=== PATIENT | male | born 1950 | race Caucasian/White ===

== ENCOUNTER → 2023-11-04 | Outpatient (CLI) | payer MEDICARE, OTHER, MEDICAID, SELFPAY | END | disposition home or self-care (01) | PROVIDERS: PCP Family Medicine; Referring Provider Family Medicine; Visit Provider Student in an Organized Health Care Education/Training Program | DX: L97.822 Non-pressure chronic ulcer of other part of left lower leg with fat layer exposed (principal); L97.512 Non-pressure chronic ulcer of other part of right foot with fat layer exposed; L97.522 Non-pressure chronic ulcer of other part of left foot with fat layer exposed; I73.9 Peripheral vascular disease, unspecified; I25.10 Atherosclerotic heart disease of native coronary artery without angina pectoris; Z86.73 Personal history of transient ischemic attack (TIA), and cerebral infarction without residual deficits; I10 Essential (primary) hypertension; C61 Malignant neoplasm of prostate | CPT/HCPCS: 11042; 87070; 87075; 87077; 87186; 87205; A9270 ==

== ENCOUNTER → 2024-01-12 | Outpatient (CLI) | payer MEDICARE, MEDICAID, SELFPAY | END | disposition home or self-care (01) | LOC: SWHD 13:59 | PROVIDERS: PCP Family Medicine; Referring Provider Family Medicine; Visit Provider Student in an Organized Health Care Education/Training Program | DX: L97.822 Non-pressure chronic ulcer of other part of left lower leg with fat layer exposed (principal); L97.512 Non-pressure chronic ulcer of other part of right foot with fat layer exposed; L97.522 Non-pressure chronic ulcer of other part of left foot with fat layer exposed; I73.9 Peripheral vascular disease, unspecified; I25.10 Atherosclerotic heart disease of native coronary artery without angina pectoris; Z86.73 Personal history of transient ischemic attack (TIA), and cerebral infarction without residual deficits; I10 Essential (primary) hypertension; C61 Malignant neoplasm of prostate | CPT/HCPCS: 11042; 11045 ×5; A9270 ==

== ENCOUNTER 2024-01-13 22:15 | Emergency (ER) | payer MEDICARE, MEDICAID, SELFPAY ==
[2024-01-13 22:23] VITALS: BMI 25.8
[2024-01-13 22:24] VITALS: BP 133/67; PULSE 69; RESP 19; TEMP 36.8; O2SAT 95
[2024-01-13 23:01] VITALS: PULSE 85; RESP 18; O2SAT 98
[2024-01-13 23:05] VITALS: BP 127/77; PULSE 81; RESP 16; O2SAT 94
--- NOTE | 2024-01-14 00:04 | XR_ITS ---
Examination: CT cervical spine without contrast 2-D sagittal reconstructions 2-D coronal reconstructions 3-D reconstructions. Exam date and time:January 14, 2024 1259 hrs. Indications: Multiple falls today with injury to the neck, neck pain CTDI:vol (mGy) 12.86 DLP: (mGycm) 310 Technique: Multiple 2 mm axial sections of the cervical spine have been obtained. The coronal and sagittal reconstructions have been obtained. 3-D reconstructions have been obtained. Low dose protocols were performed. One or more of the following dose reduction techniques were used; automated exposure control, adjustment of the mA and/or KV according to patient size, use of iterative reconstruction technique. Findings: Axial sections demonstrate intact base of the skull. C1 exhibit satisfactory relationship to the odontoid. No acute cervical vertebral body fracture seen. Alignment posterior spinous processes satisfactory. Impression: No acute cervical fracture.
--- NOTE | 2024-01-14 00:04 | XR_ITS ---
Examination: CT brain head without contrast. 2-D sagittal coronal reconstructions Date and time of exam:January 14, 2024 at 1223 hrs. Indications: Multiple falls today with injury to the head, head pain CTDI: vol (mGy):51.1 DLP: (mGycm):1109 Technique: Multiple CT axial sections of the brain have been obtained, 5 mm slice thickness. Contrast has not been administered. 2-D sagittal, coronal reconstructions have been obtained Low dose protocols were performed. One or more of the following dose reduction techniques were used; automated exposure control, adjustment of the mA and/or KV according to patient size, use of iterative reconstruction technique. Findings: No significant ventricular enlargement. Encephalomalacia right temporal lobe Encephalomalacia right occipital lobe as well as right frontal lobe Intra-axial or extra-axial hemorrhage density is not seen. No mass effect or midline shift Basal cisterns are not remarkable. Fourth ventricle is midline. Cranial vault intact. Impression: Negative for acute hemorrhage, mass effect or midline shift Extensive chronic changes as above
[2024-01-14] MEDS: HYDROcodone/APAP 5/325 TABLET 1 TAB PO (00:48)
--- NOTE | 2024-01-14 00:52 | EDNOTE_ITS ---
ED Fall Injury RME/HPI General Chief Complaint: Fall Stated Complaint: FALL Time Seen by Provider: 01/14/24 00:04 Arrival date/time: 01/13/24 22:15 RME / HPI RME / HPI Narrative: Dr. Quinones's Main ED Evaluation: 73yo male with pmhx CVA, HTN, DM, BPH BIBA from [facility] presents to the ED for a chief complaint of a fall. Per EMS, the patient had 3 falls yesterday. With the latest fall, patient states he was bending over when he lost his balance and fell forward, hitting his head. He endorses having a headache and chronic BLE pain, stating his BLE pain is significantly worse and rates it a 6-7 out of 10 in severity and is repeatedly asking for pain medication. He denies any loss of consciousness. Denies any other associated symptoms. No known allergies. Related Data Home Medications ?Medication ?Instructions ?Recorded ?Confirmed tamsulosin 0.4 mg capsule 0.4 mg PO QHS 08/02/21 12/13/23 apixaban 5 mg tablet (Eliquis) 5 mg PO 2XD 11/10/23 12/13/23 metoprolol succinate 25 mg 25 mg PO QDAY 11/10/23 12/13/23 tablet,extended release 24 hr hydrocodone 10 mg-acetaminophen 1 tab PO Q4H PRN Pain 12/13/23 12/13/23 325 mg tablet lidocaine HCl 4 % topical cream 1 applic topical QDAY 12/13/23 12/13/23 (Lidocaine Plus) loperamide 2 mg tablet 2 mg PO Q8H PRN Pain (Scale Score 12/13/23 12/13/23 7-10) magnesium hydroxide 400 mg/5 mL 30 ml PO Q72H PRN Constipation 12/13/23 12/13/23 oral suspension (Milk of Magnesia) morphine 15 mg tablet,extended 15 mg PO BID 12/13/23 12/13/23 release Previous Rx's ?Medication ?Instructions ?Recorded acetaminophen 325 mg tablet 650 mg (2 x 325 mg) PO Q6H PRN 11/16/23 Fever >100.3 #10 tabs docusate sodium 100 mg capsule 100 mg PO BID #60 caps 11/16/23 furosemide 40 mg tablet 40 mg PO QDAY 30 days #30 tabs 09/23/24 ceftriaxone 2 gram solution for 2 g continuous IV infusion QDAY 12/14/23 injection Osteomyelitis #40 ea doxycycline hyclate 100 mg tablet 100 mg PO BID Osteomyelitis #80 12/14/23 tabs Allergies Allergy/AdvReac Type Severity Reaction Status Date / Time No Known Allergies Allergy Unverified 11/03/23 14:39 Review of Systems Review of Systems Systems Reviewed: All systems reviewed, normal except as documented Narrative Review of Systems: Gen: No fever, no chills, no weight loss EYES: No discharge, no visual changes, no pain HEENT: No ear pain, no congestion, no sore throat PULM: No shortness of breath, no cough, no congestion CV: No chest pain, no dyspnea on exertion, no palpitations GI: No nausea, no vomiting, no diarrhea, no pain, no constipation : No frequency, no urgency, no dysuria Musc/skel: + BLE pain, no back pain Skin: No rash. Warm and dry. Psyc: No hallucinations, no depression Heme/Lymph: No easy bleeding or bruising tendencies Neuro: No weakness, + headache, + head strike Past Medical History Past Medical History NEUROLOGIC: Positive Neurological Disorders and Cerebrovascular Accident; Negative Seizures CARDIAC: Positive Cardiac Disorders, Myocardial Infarction, Peripheral Vascular Disease, Hypercholesterolemia, Congestive Heart Failure, Deep Vein Thrombosis and Hypertension RESPIRATORY: Negative Chronic Obstructive Pulmonary Disease (COPD) or Asthma GENITOURINARY: Positive Prostate Cancer and Benign Prostatic Hyperplasia; Negative Renal Disease MUSCULOSKELETAL: Negative Musculoskeletal Disorders ENDOCRINE: Negative Endocrine Disorders, Diabetes Mellitus Type 1 or Diabetes Mellitus Type 2 HEMATOLOGIC: Negative Sickle Cell Disease OTHER HISTORY: Positive Cancer and Prostate Cancer; Negative Hospitalization, Autoimmune Disease, Down Syndrome, Developmental Delay, Falls, Blood Transfusions, Blood Transfusion Reaction or Anesthesia Reactions Surgical History SURGICAL: Positive Amputation Social History SMOKING STATUS: Former smoker SECOND HAND EXPOSURE: No SUBSTANCE USE: does not use 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 APPEARANCE: Patient is alert awake oriented x3 under no distress; does not look ill/ toxic. Patient is extremely anxious and wants painkillers. VITALS: All vitals were reviewed and the pulse ox is 94% on room air, which is normal according to my interpretation. HEENT: Normocephalic, atraumatic and nontender. Pupils are equal and reactive to light and accommodation. Oral mucosa are moist. NECK: Supple, nontender, no meningismus, no JVD. CHEST: Nontender on palpation, no deformity and no crepitus. CARDIOVASCULAR: Heart regular rhythm no murmur or gallop rub or extra beats; not tachycardic. LUNGS: Clear to auscultation bilaterally with symmetrical chest rise. No laboring tachypnea or wheezing. No intercostal subcostal retraction. No rales and no rhonchi. ABDOMEN: Soft, flat, nontender at all, no guarding or rebound tenderness. There are no abnormal masses palpated. No pulsatile masses or bruits. Active and normal bowel sounds. GENITALIA: Not examined. RECTAL EXAM: Not done. EXTREMITIES: Nontender. No edema. No cyanosis. Chronic ulcerations with bandages to both legs. Patient is able to move all 4 extremities well. SKIN: Warm and dry, no rashes noted. MUSCULOSKELETAL: No lumbar or midline bony tenderness. There is no CVA tenderness. No paraspinal muscle spasm or tenderness. NEURO: Cranial nerves II through XII grossly intact. There is no focalization. GCS is 15. PSYCHIATRIC: Patient is in normal mood and affect, cooperative. LYMPHATICS: No major lymphadenopathy noted. Course Quality Measures none Orders Category Date Time Status CT cervical spine wo con Stat Exams 01/14/24 00:[address] head/brain wo con Stat Exams 01/14/24 00:04 Taken HYDROcodone*/APAP 5/325 [[place] 5/325] Med 01/14/24 00:45 Discontinued 1 tab PO X1 ONE Vital Signs Vital signs: Vital Signs Temperature 98.3 F 01/13/24 22:24 Pulse Rate 69 01/13/24 22:24 Respiratory Rate 19 01/13/24 22:24 Blood Pressure 133/67 H 01/13/24 22:24 Pulse Oximetry (%) 95 01/13/24 22:24 Oxygen Delivery Method Room Air 01/13/24 22:24 Fall MDM Narrative MDM Narrative:: Scribe Attestation: 01/14/24 Michelle Bradley am scribing for and in the presence of Dr. Quinones. Patient was sent over by ambulance from the long term due to a trip and fall this morning with injury to the head. Patient states that he fell forward after tripping over himself this morning at 8 AM but no loss of consciousness or nausea vomiting. Patient complains of forehead pain but no true headache. He denies any nausea vomiting. He denies any neck pain and no numbness or tingling anywhere. He denies any localized weakness. He denies chest pain or abdominal pain or back pain. Patient has chronic ulcerations in his lower extremities. By looking at his old records, patient was last here on 07/04/2023 when he tested positive for methamphetamines and marijuana. Today, he acts like he is dependent on narcotics: He is very anxious, asking for [place] due to his headache and his legs pain. He has bandages in his lower legs bilaterally due to wounds that are being treated at the long term. I only ordered a CAT scan of the brain and C-spine and both of them came back negative. Patient is neurologically intact and he will be discharged back to the nursing. Provider Notation: Although this document has been carefully reviewed, there may still be some phonetic and other typographical errors. These errors are purely grammatical due to imperfections in the software program and should not be construed in any way to compromise the substance of the patient's medical care during this visit. 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. Record#: [id number] Birthdate: 1950 Age/Sex: 73 / M Location: [facility] Attending Dr: Ordering Physician: Date of Service: Procedure(s): Accession Number(s): cc: ~ CT scan of the head without intravenous contrast (axial sections with sagittal and coronal reformats) January 14, 2024 0023 hours Clinical [facility] with the prior study dated July 04, 2023 Findings: There is no evidence of intracranial hemorrhage, mass effect or midline shift.There are old infarcts in the right frontotemporal and occipital lobes. There are mild periventricular white matter hypodensities, likely representing chronic small vessel ischemia. There is mild volume loss. The calvarium is intact.There is a small retention cyst or polyp in the right maxillary sinus. The mastoid air cells and the visualized paranasal sinuses are clear. Impression: No evidence of intracranial hemorrhage, midline shift or calvarial fracture. Periventricular chronic small vessel ischemia, old infarcts and volume loss. Report Electronically Signed By: Oskar Lassiter 01/14/2024 1:57:46 AM [EST] -------- [facility] Preliminary Report Draft Patient: JENNA VO [facility]. Record#: [id number] Birthdate: 1950 Age/Sex: 73 / M Location: [facility] Attending Dr: Ordering Physician: Date of Service: Procedure(s): Accession Number(s): cc: ~ CT scan of the cervical spine without intravenous contrast (axial sections with sagittal and coronal reformats) January 14, 2024 0025 hours Clinical History: fall No prior study is available for comparison. Findings: The bones are osteopenic. There is no fracture or subluxation. There is reversal of the cervical lordosis, which may be due to muscle spasm or patient position. There are multilevel moderate degenerative changes in the form of marginal osteophytes, decreased disc height, uncinate and facet arthrosis, most prominent at C4-C5, C5-C6 and C6-C7 levels causing mild spinal canal and moderate bilateral neural foraminal narrowing.The prevertebral soft tissues are unremarkable. Impression: No evidence of fracture or subluxation. Moderate degenerative changes. Report Electronically Signed By: Oskar Lassiter 01/14/2024 1:59:28 AM [EST] Medications / Prescriptions Medications or Prescriptions considered but not ordered:: none Medication administrations:: Medication Administration History Discontinued Medications Hydrocodone Bitart/Acetaminophen (Hydrocodone/Apap 5/325 Tablet) 1 tab PO X1 ONE Stop: 01/14/24 00:46 Last Admin: 01/14/24 00:48 Dose: 1 tab Documented By: DB see above Consultations Consultation(s) initiated? (list below): No Diagnosis Fall Differential Diagnosis: other (ICH, cervical fracture, narcotic dependence) Most likely diagnosis given after review of the tests above:: see below Admission Indicated Admission indicated?: not indicated Admission Request Was there a request for admission?: No Disposition Plan Disposition Plan: Discharge Discharge Attestation Discharge Attestation: The patient and all family members were given an opportunity to ask questions and understood the discharge instructions. Discharge instructions specifically effects, indications for sooner follow up or return to the emergency department, and the expected course of current diagnosis. Patient condition: Stable Discharge Plan Plan Patient Disposition: Xfer Skilled Nsg Fac (SNF) Prescriptions/Referrals Prescriptions/Med Rec: No Action tamsulosin 0.4 mg capsule 0.4 mg PO QHS metoprolol succinate 25 mg tablet extended release 24 hr 25 mg PO QDAY Patient Comments: TAKE ONE TABLET BY MOUTH EVERY DAY FOR BLOOD PRESSURE Eliquis 5 mg tablet 5 mg PO 2XD Patient Comments: TAKE ONE TABLET BY MOUTH TWICE DAILY FOR THE HEART acetaminophen 325 mg Tablet 650 mg PO Q6H PRN (Reason: Fever >100.3) Qty: 10 0RF furosemide 40 mg tablet 40 mg PO QDAY 30 Days Qty: 30 3RF docusate sodium 100 mg Capsule 100 mg PO BID Qty: 60 0RF loperamide 2 mg Tablet 2 mg PO Q8H PRN (Reason: Pain (Scale Score 7-10)) hydrocodone-acetaminophen 10-325 mg Tablet 1 tab PO Q4H PRN (Reason: Pain) morphine 15 mg Tablet Extended Release 15 mg PO BID lidocaine HCl [Lidocaine Plus] 4 % Cream 1 applic TOPICAL QDAY Rx Instructions: Apply to L foot surgical site topically QD for pain management for 21 days. magnesium hydroxide [Milk of Magnesia] 400 mg/5 mL Suspension 30 ml PO Q72H PRN (Reason: Constipation) ceftriaxone 2 gram recon soln 2 g continuous IV infusion QDAY Qty: 40 0RF Rx Instructions: Please continue with this medicine until 01/22/2024 for total duration of 6 weeks. doxycycline hyclate 100 mg tablet 100 mg PO BID Qty: 80 0RF Rx Instructions: Please continue this medicine until 01/22/2024 for osteomyelitis. Referrals: Nyasia Dorado MD [Primary Care Provider] - 01/15/24 10:00 am Problem List Clinical Impression: Fall from slip, trip, or stumble, CHI (closed head injury), History of methamphetamine abuse, History of cannabis abuse Patient/Caregiver Discharge Instructions Print Language: [place] Stand Alone Forms: [employer]zy Award Info., Patient Portal Info Letter
[2024-01-14 01:41] VITALS: BP 128/75; PULSE 85; RESP 16; O2SAT 95
[2024-01-14 01:42] VITALS: BP 128/75; PULSE 80; RESP 16; TEMP 37; O2SAT 95
--- NOTE | 2024-01-14 01:57 | PRELIM_ITS ---
CT scan of the head without intravenous contrast (axial sections with sagittal and coronal reformats) January 14, 2024 0023 hoursClinical History: Fall on [facility]Compared with the prior study dated 2023Findings:There is no evidence of intracranial hemorrhage, mass effect or midline shift.Ther e are old infarcts in the right frontotemporal and occipital lobes. There are mild periventricular w marbella matter hypodensities, likely representing chronic small vessel ischemia. There is mild volume lo ss. The calvarium is intact.There is a small retention cyst or polyp in the right maxillary sinus. Th e mastoid air cells and the visualized paranasal sinuses are clear. Impression:No evidence of intracr anial hemorrhage, midline shift or calvarial fracture. Periventricular chronic small vessel ischemia, old infarcts and volume loss. Report Electronically Signed By: Oskar Lassiter 01/14/2024 1:57:46 AM [ EST]
--- NOTE | 2024-01-14 02:00 | PRELIM_ITS ---
CT scan of the cervical spine without intravenous contrast (axial sections with sagittal and coronal reformats) January 14, 2024 0025 hours Clinical History: fall No prior study is available for compar kristen. Findings:The bones are osteopenic. There is no fracture or subluxation. There is reversal of th e cervical lordosis, which may be due to muscle spasm or patient position. There are multilevel moder ate degenerative changes in the form of marginal osteophytes, decreased disc height, uncinate and fa cet arthrosis, most prominent at C4-C5, C5-C6 and C6-C7 levels causing mild spinal canal and moderate bilateral neural foraminal narrowing.The prevertebral soft tissues are unremarkable.Impression:No ev idence of fracture or subluxation.Moderate degenerative changes. Report Electronically Signed By: Sa faizan Lassiter 01/14/2024 1:59:28 AM [EST]
[2024-01-14 02:02] VITALS: BP 127/91; PULSE 88; RESP 18; O2SAT 93
[2024-01-14 03:00] VITALS: BP 122/92; PULSE 91; RESP 20; O2SAT 93
== END 2024-01-14 03:24 | disposition skilled nursing facility (03) ==
PROVIDERS: Emergency Provider Emergency Medicine; PCP Hospitalist
DX: S09.90XA Unspecified injury of head, initial encounter (principal); S19.9XXA Unspecified injury of neck, initial encounter; M50.31 Other cervical disc degeneration, high cervical region; I67.82 Cerebral ischemia; Z87.891 Personal history of nicotine dependence; W01.0XXA Fall on same level from slipping, tripping and stumbling without subsequent striking against object, initial encounter
CPT/HCPCS: 70450; 72125; 99284; A9270

== ENCOUNTER → 2024-01-19 | Outpatient (CLI) | payer MEDICARE, MEDICAID, SELFPAY | END | disposition home or self-care (01) | LOC: SWHD 08:41 | PROVIDERS: PCP Family Medicine; Referring Provider Family Medicine; Visit Provider Student in an Organized Health Care Education/Training Program | DX: L97.822 Non-pressure chronic ulcer of other part of left lower leg with fat layer exposed (principal); L97.512 Non-pressure chronic ulcer of other part of right foot with fat layer exposed; L97.522 Non-pressure chronic ulcer of other part of left foot with fat layer exposed; I73.9 Peripheral vascular disease, unspecified; I25.10 Atherosclerotic heart disease of native coronary artery without angina pectoris; Z86.73 Personal history of transient ischemic attack (TIA), and cerebral infarction without residual deficits; I10 Essential (primary) hypertension; C61 Malignant neoplasm of prostate | CPT/HCPCS: 97597; 11042; 11045 ×2; 97598 ×4; A9270 ==

== ENCOUNTER → 2024-01-26 | Outpatient (CLI) | payer MEDICARE, MEDICAID, SELFPAY | END | disposition home or self-care (01) | LOC: SWHD 13:52 | PROVIDERS: PCP Family Medicine; Referring Provider Family Medicine; Visit Provider Student in an Organized Health Care Education/Training Program | DX: L97.822 Non-pressure chronic ulcer of other part of left lower leg with fat layer exposed (principal); L97.512 Non-pressure chronic ulcer of other part of right foot with fat layer exposed; L97.522 Non-pressure chronic ulcer of other part of left foot with fat layer exposed; I73.9 Peripheral vascular disease, unspecified; I25.10 Atherosclerotic heart disease of native coronary artery without angina pectoris; Z86.73 Personal history of transient ischemic attack (TIA), and cerebral infarction without residual deficits; I10 Essential (primary) hypertension; C61 Malignant neoplasm of prostate | CPT/HCPCS: 11042; 11045; 11044; 11047; A9270 ==

== ENCOUNTER 2024-01-27 09:43 | Emergency (ER) | payer MEDICARE, MEDICAID, SELFPAY ==
[2024-01-27 09:44] VITALS: BP 151/74; PULSE 68; RESP 16; TEMP 37.2; O2SAT 96
[2024-01-27 09:45] VITALS: BMI 26.8
[2024-01-27 09:54] VITALS: PULSE 82; RESP 18; O2SAT 97; BMI 27.3
[2024-01-27 11:55] VITALS: BP 142/66; PULSE 64; RESP 20; TEMP 36.3; O2SAT 96
--- NOTE | 2024-01-27 11:59 | XR_ITS ---
Examination: CT cervical spine without contrast 2-D sagittal reconstructions 2-D coronal reconstructions 3-D reconstructions. Exam date and time:January 27, 2024 1255 hours Comparison January 14, 2024 INDICATIONS: Patient fell today with injury to the neck, neck pain CTDI:vol (mGy) 8.07 DLP: (mGycm) 196 Technique: Multiple 2 mm axial sections of the cervical spine have been obtained. The coronal and sagittal reconstructions have been obtained. 3-D reconstructions have been obtained. Low dose protocols were performed. One or more of the following dose reduction techniques were used; automated exposure control, adjustment of the mA and/or KV according to patient size, use of iterative reconstruction technique. Findings: Axial sections demonstrate intact base of the skull. C1 exhibit satisfactory relationship to the odontoid. No acute cervical vertebral body fracture seen. Alignment posterior spinous processes satisfactory. Impression: No acute cervical fracture.
--- NOTE | 2024-01-27 11:59 | XR_ITS ---
Examination: CT brain head without contrast. 2-D sagittal coronal reconstructions Date and time of exam:January 27, 2024 1255 hours Comparison January 14, 2024 INDICATIONS: Patient fell today with injury to the head, head pain CTDI: vol (mGy):50.7 DLP: (mGycm):1087 Technique: Multiple CT axial sections of the brain have been obtained, 5 mm slice thickness. Contrast has not been administered. 2-D sagittal, coronal reconstructions have been obtained Low dose protocols were performed. One or more of the following dose reduction techniques were used; automated exposure control, adjustment of the mA and/or KV according to patient size, use of iterative reconstruction technique. Findings: No significant ventricular enlargement. Left frontal scalp swelling Again noted encephalomalacia right temporal lobe right occipital lobe Intra-axial or extra-axial hemorrhage density is not seen. No mass effect or midline shift Basal cisterns are not remarkable. Fourth ventricle is midline. Cranial vault intact. Impression: Negative for acute hemorrhage, mass effect or midline shift
--- NOTE | 2024-01-27 12:00 | EDNOTE_ITS ---
ED General RME/HPI General Chief complaint: Head Injury Stated complaint: HEAD INJURY Time Seen by Provider: 01/27/24 11:59 Arrival date/time: 01/27/24 09:43 CC: Ground-level fall headache. HPI, standing at the breakfast table states he fell asleep on his feet. And then tumbled over patient states he had recurrent falls for unknown reason. The patient immediate complained about his chronic leg pain is wanting pain medicines. Patient is awake alert oriented rapid speaking. Related Data Home Medications ?Medication ?Instructions ?Recorded ?Confirmed tamsulosin 0.4 mg capsule 0.4 mg PO QHS 08/02/21 12/13/23 apixaban 5 mg tablet (Eliquis) 5 mg PO 2XD 11/10/23 12/13/23 metoprolol succinate 25 mg 25 mg PO QDAY 11/10/23 12/13/23 tablet,extended release 24 hr hydrocodone 10 mg-acetaminophen 1 tab PO Q4H PRN Pain 12/13/23 12/13/23 325 mg tablet lidocaine HCl 4 % topical cream 1 applic topical QDAY 12/13/23 12/13/23 (Lidocaine Plus) loperamide 2 mg tablet 2 mg PO Q8H PRN Pain (Scale Score 12/13/23 12/13/23 7-10) magnesium hydroxide 400 mg/5 mL 30 ml PO Q72H PRN Constipation 12/13/23 12/13/23 oral suspension (Milk of Magnesia) morphine 15 mg tablet,extended 15 mg PO BID 12/13/23 12/13/23 release Previous Rx's ?Medication ?Instructions ?Recorded acetaminophen 325 mg tablet 650 mg (2 x 325 mg) PO Q6H PRN 11/16/23 Fever >100.3 #10 tabs docusate sodium 100 mg capsule 100 mg PO BID #60 caps 11/16/23 furosemide 40 mg tablet 40 mg PO QDAY 30 days #30 tabs 11/16/23 ceftriaxone 2 gram solution for 2 g continuous IV infusion QDAY 12/14/23 injection Osteomyelitis #40 ea doxycycline hyclate 100 mg tablet 100 mg PO BID Osteomyelitis #80 12/14/23 tabs Allergies Allergy/AdvReac Type Severity Reaction Status Date / Time No Known Allergies Allergy Unverified 11/03/23 14:39 Review of Systems Review of Systems Narrative Review of Systems: GEN: No fever, no chills, no weight loss EYES: No discharge, no visual changes, no pain HEENT: No ear pain, no congestion, no sore throat PULM: No shortness of breath, no cough, no congestion CV: No chest pain, no dyspnea on exertion, no palpitations GI: No nausea, no vomiting, no diarrhea, no pain, no constipation : No frequency, no urgency, no dysuria MUSC/SKEL: No joint pain, no back pain SKIN: No rash PSYCH: No hallucinations, no depression HEME/LYMPH: No easy bleeding or bruising tendencies NEURO: No weakness, + headache Past Medical History Past Medical History NEUROLOGIC: Positive Neurological Disorders and Cerebrovascular Accident (left side deficit); Negative Seizures CARDIAC: Positive Cardiac Disorders, Myocardial Infarction, Peripheral Vascular Disease, Hypercholesterolemia, Congestive Heart Failure, Deep Vein Thrombosis and Hypertension RESPIRATORY: Negative Chronic Obstructive Pulmonary Disease (COPD) or Asthma GENITOURINARY: Positive Prostate Cancer and Benign Prostatic Hyperplasia; Negative Renal Disease MUSCULOSKELETAL: Negative Musculoskeletal Disorders ENDOCRINE: Negative Endocrine Disorders, Diabetes Mellitus Type 1 or Diabetes Mellitus Type 2 HEMATOLOGIC: Negative Sickle Cell Disease OTHER HISTORY: Positive Cancer and Prostate Cancer; Negative Hospitalization, Autoimmune Disease, Down Syndrome, Developmental Delay, Falls, Blood Transfusions, Blood Transfusion Reaction or Anesthesia Reactions Surgical History SURGICAL: Positive Amputation (left great toe) Social History SMOKING STATUS: Never smoker SECOND HAND EXPOSURE: No SUBSTANCE USE: does not use 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 ED Exam Narrative Physical exam: [General: Anxious, not in any acute distress Head normocephalic HEENT: Within acceptable limits Neck is supple nontender Chest equal chest rise nontender to palpation Respiratory: Clear to auscultation no wheezes crackles or rubs CV: Rate rhythm is regular no murmurs rubs or clicks Abdomen is distended secondary to body habitus soft nontender no masses positive bowel sounds all 4 quadrants Back: No CVA tenderness no spinous process tenderness from cervical spine thoracic and lumbar spine Skin: Intact no petechiae rash induration ulceration or crepitus Extremities: Moving all extremity against resistance cap refill less than 2 seconds neurosensory intact, nonpitting edema both lower extremities Neuro: Awake alert oriented x3 Glascow coma 15 no focal deficits] Course Quality Measures none Orders Category Date Time Status CT cervical spine wo con Stat Exams 01/27/24 11:[address] head/brain wo con Stat Exams 01/27/24 11:59 Completed CBC Stat Lab 01/27/24 12:07 Completed CMP [Comprehensive Metabolic Panel] Stat Lab 01/27/24 12:07 Completed Drug Screen,Urine Stat Lab 01/27/24 12:09 Ordered Urinalysis Stat Lab 01/27/24 12:09 Ordered HYDROcodone/APAP 10/325 [[place] 10/325] Med 01/27/24 12:10 Discontinued 1 tab PO X1 ONE Vital Signs Vital signs: Vital Signs Temperature 98.9 F 01/27/24 09:44 Pulse Rate 68 01/27/24 09:44 Respiratory Rate 16 01/27/24 09:44 Blood Pressure 151/74 H 01/27/24 09:44 Pulse Oximetry (%) 96 01/27/24 09:44 Oxygen Delivery Method Room Air 01/27/24 09:44 [facility] Patient data External records reviewed:: [facility] previous records and EMS form Clinical information provided by:: patient and EMS Social determinants that could affect healthcare access:: none Patient has the following chronic illnesses:: Methamphetamine abuse CVA How is presenting disease/condition affected by chronic disease/condition?: e xacerbated by Evaluation data The following diagnostics were reviewed and interpreted by me:: lab results and radiology exam(s) Lab and/or radiology exams considered but not ordered:: CT head and C-spine as interpreted by me read by radiology as negative for any acute finding The CMP shows the patient has a stable anemia, no leukocytosis or thrombocytopenia CMP shows no acute electrolyte imbalances renal impairment transaminitis or T. bili elevation. Interpretation Summary: Fall I am not sure what the ultimate causes the patient takes morphine for chronic pain, and this in combination with the stable anemia may be contributing to the patient's falls. Medications Medications considered but not ordered:: None Medication administrations:: Medication Administration History Discontinued Medications Hydrocodone Bitart/Acetaminophen (Hydrocodone/Apap 10/325 Tab) 1 tab PO X1 ONE Stop: 01/27/24 12:11 Last Admin: 01/27/24 12:24 Dose: 1 tab Documented By: MARY None Consultations Consultation(s) initiated? (list below): No Diagnosis Differential Diagnosis ED Complaint MDM: Ground-level fall forehead abrasion closed head injury Most likely diagnosis given after review of the tests above:: Ground-level fall forehead abrasion anemia Admission Indicated Admission indicated?: not indicated Explain why admission is indicated or not indicated:: Stable for discharge Admission Request Was there a request for admission?: No Disposition Plan Disposition Plan: Discharge Discharge Attestation Discharge Attestation: The patient and all family members were given an opportunity to ask questions and understood the discharge instructions. Discharge instructions specifically effects, indications for sooner follow up or return to the emergency department, and the expected course of current diagnosis. Patient condition: Stable Medical Decision Making Differential Diagnosis Differential Diagnosis: Ground-level fall forehead abrasion closed head injury Lab Data 01/27/24 12:07 01/27/24 12:07 Labs: Lab Results 01/27/24 Range/Units 12:07 WBC 9.0 (3.8-10.6) Thou/mm3 RBC 3.43 L (4.50-5.90) Miln/mm3 Hgb 7.9 L (13.5-16.0) g/dL Hct 25.8 L (41.0-53.0) % MCV 75 L (80-100) fL MCH 23.0 L (25.0-35.0) pg MCHC 30.6 L (31.0-37.0) g/dl RDW Std Deviation 50.9 H (35.1-43.9) fL Plt Count 356 (140-440) Thou/mm3 Neut % (Auto) 78 (37-80) % Lymph % (Auto) 11 (10-50) % [place] % (Auto) 9 (0-12) % Eos % (Auto) 2 (0-10) % Baso % (Auto) 0 (0-2.5) % Neut # (Auto) 7.0 (1.8-7.7) Thou/mm3 Lymph # (Auto) 1.0 (1.0-4.8) Thou/mm3 [place] # (Auto) 0.9 H (0.0-0.8) Thou/mm3 Eos # (Auto) 0.2 (0.0-0.5) Thou/mm3 Baso # (Auto) 0.0 (0.0-0.2) Thou/mm3 Immature Gran # (Auto) 0.02 H (0.00-0.00) Thou/mm3 Absolute Nucleated RBC 0.00 (0.00-0.00) Thou/mm3 Immature Gran % 0 (0-0) % Nucleated RBC % 0 (0) /100 WBC Sodium 141 (136-145) mMol/L Potassium 3.7 (3.4-5.1) mMol/L Chloride 107 (98-107) mMol/L Carbon Dioxide 27.1 (20.0-31.0) mMol/L Anion Gap 7 (7-16) BUN 18 (9-23) mg/dL Creatinine 0.8 (0.6-1.3) mg/dL Estim Creat Clear Calc 79.6 (>60) mL/min eGFR > 60 (60 - ) See Note BUN/Creatinine Ratio 23 H (12-20) Ratio Glucose 97 (74-106) mg/dL Calculated Osmolality 283 (275-295) Calcium 9.1 (8.3-10.6) mg/dL Corrected Calcium 9.5 (8.5-10.1) mg/dL Total Bilirubin 0.4 (0.3-1.2) mg/dL AST 22 (0-34) U/L ALT 26 (10-49) U/L Alkaline Phosphatase 85 (46-116) U/L Total Protein 6.7 (5.7-8.2) gm/dL Albumin 3.5 (3.4-4.8) gm/dL Globulin 3.2 (2.3-3.5) gm/dL Albumin/Globulin Ratio 1.1 L (1.2-2.2) Discharge Plan Plan Patient Disposition: HOME (Self Care) Patient condition on transfer: Stable Prescriptions/Referrals Prescriptions/Med Rec: No Action tamsulosin 0.4 mg capsule 0.4 mg PO QHS metoprolol succinate 25 mg tablet extended release 24 hr 25 mg PO QDAY Patient Comments: TAKE ONE TABLET BY MOUTH EVERY DAY FOR BLOOD PRESSURE Eliquis 5 mg tablet 5 mg PO 2XD Patient Comments: TAKE ONE TABLET BY MOUTH TWICE DAILY FOR THE HEART acetaminophen 325 mg Tablet 650 mg PO Q6H PRN (Reason: Fever >100.3) Qty: 10 0RF furosemide 40 mg tablet 40 mg PO QDAY 30 Days Qty: 30 3RF docusate sodium 100 mg Capsule 100 mg PO BID Qty: 60 0RF loperamide 2 mg Tablet 2 mg PO Q8H PRN (Reason: Pain (Scale Score 7-10)) hydrocodone-acetaminophen 10-325 mg Tablet 1 tab PO Q4H PRN (Reason: Pain) morphine 15 mg Tablet Extended Release 15 mg PO BID lidocaine HCl [Lidocaine Plus] 4 % Cream 1 applic TOPICAL QDAY Rx Instructions: Apply to L foot surgical site topically QD for pain management for 21 days. magnesium hydroxide [Milk of Magnesia] 400 mg/5 mL Suspension 30 ml PO Q72H PRN (Reason: Constipation) ceftriaxone 2 gram recon soln 2 g continuous IV infusion QDAY Qty: 40 0RF Rx Instructions: Please continue with this medicine until 01/22/2024 for total duration of 6 weeks. doxycycline hyclate 100 mg tablet 100 mg PO BID Qty: 80 0RF Rx Instructions: Please continue this medicine until 01/22/2024 for osteomyelitis. Referrals: Fernando Calle MD [Primary Care Provider] - In 1 week Problem List Clinical Impression: Fall from ground level, Abrasion of forehead, Anemia, Chronic leg pain Patient/Caregiver Discharge Instructions Education Materials: Anemia, Managing Chronic Pain, Preventing Falls Moving Safely ... Print Language: [place] Stand Alone Forms: Litzy Award Info., Patient Portal Info Letter PA/ELEVATOR WORKER Supervising Physician AYLIN/ELEVATOR WORKER Supervising Physician: Alok Javed ENP
[2024-01-27] MEDS: HYDROcodone/APAP 10/325 TAB PO (12:24)
[2024-01-27 12:49] LABS: Basophils % (Auto) 0 % (0-2.5); Eosinophils # (Auto) 0.2 Thou/mm3 (0.0-0.5); Eosinophils % (Auto) 2 % (0-10); Hematocrit 25.8 % (41.0-53.0); Immature Granulocytes % (Auto) 0 % (0-0); Immature Granulocytes Auto 0.02 Thou/mm3 (0.00-0.00); Lymphocytes % (Auto) 11 % (10-50); Mean Corpuscular HGB Conc 30.6 g/dl (31.0-37.0); Mean Corpuscular Volume 75 fL (80-100); Monocytes # (Auto) 0.9 Thou/mm3 (0.0-0.8); Monocytes % (Auto) 9 % (0-12); Neutrophils % (Auto) 78 % (37-80); Nucleated Red Blood Cell % 0 /100 WBC (0); Platelet Count 356 Thou/mm3 (140-440); RDW Standard Deviation 50.9 fL (35.1-43.9); Red Blood Count 3.43 Miln/mm3 (4.50-5.90)
--- NOTE | 2024-01-27 12:54 | PC.NURSE ---
patient to ct scan via [facility] with rehana nelson
[2024-01-27 13:02] LABS: Hemoglobin 7.9 g/dL (13.5-16.0)
[2024-01-27 13:06] LABS: Alanine Aminotransferase 26 U/L (10-49); Albumin, Serum 3.5 gm/dL (3.4-4.8); Albumin/Globulin Ratio 1.1 (1.2-2.2); Alkaline Phosphatase 85 U/L (46-116); Anion Gap 7 (7-16); Aspartate Amino Transferase 22 U/L (0-34); BUN/Creatinine Ratio 23 Ratio (12-20); Bilirubin,Total 0.4 mg/dL (0.3-1.2); Blood Urea Nitrogen 18 mg/dL (9-23); Calcium 9.1 mg/dL (8.3-10.6); Calcium (Corrected) 9.5 mg/dL (8.5-10.1); Carbon Dioxide 27.1 mMol/L (20.0-31.0); Chloride 107 mMol/L (98-107); Creatinine (Component) 0.8 mg/dL (0.6-1.3); Estimated Creatinine Clearance 79.6 mL/min (>60); Globulin 3.2 gm/dL (2.3-3.5); Glucose 97 mg/dL (74-106); Osmolality,Calculated 283 (275-295); Potassium 3.7 mMol/L (3.4-5.1); Sodium 141 mMol/L (136-145); Total Protein 6.7 gm/dL (5.7-8.2); eGFR > 60 See Note
--- NOTE | 2024-01-27 14:59 | PC.CC ---
machine farmworker Sara consulted with Cindy DANIELS regarding transportation back to [facility]. ASW made contact with [facility] who reports they are going to chicken picker the patient. Charge Alina and ALEXANDR Sanabria were made aware.
--- NOTE | 2024-01-27 15:27 | PC.NURSE ---
This Rn provided Ziggy Rn at [facility] with report for patient returning to facility. Patient transported team is here to black pickler patient.
== END 2024-01-27 15:32 | disposition home or self-care (01) ==
PROVIDERS: Registered Nurse General Practice; Emergency Provider Emergency Medicine; PCP Family Medicine
DX: S00.81XA Abrasion of other part of head, initial encounter (principal); S19.9XXA Unspecified injury of neck, initial encounter; D64.9 Anemia, unspecified; M79.606 Pain in leg, unspecified; G89.29 Other chronic pain; W18.30XA Fall on same level, unspecified, initial encounter; R29.6 Repeated falls
CPT/HCPCS: 36415; 70450; 72125; 80053; 80307; 81001; 85025; 99284; A9270

== ENCOUNTER → 2024-02-02 | Outpatient (CLI) | payer MEDICARE, MEDICAID, SELFPAY | END | disposition home or self-care (01) | LOC: SWHD 13:49 | PROVIDERS: PCP Family Medicine; Referring Provider Family Medicine; Visit Provider Surgery | DX: L97.822 Non-pressure chronic ulcer of other part of left lower leg with fat layer exposed (principal); L97.512 Non-pressure chronic ulcer of other part of right foot with fat layer exposed; L97.522 Non-pressure chronic ulcer of other part of left foot with fat layer exposed; I73.9 Peripheral vascular disease, unspecified; I25.10 Atherosclerotic heart disease of native coronary artery without angina pectoris; Z86.73 Personal history of transient ischemic attack (TIA), and cerebral infarction without residual deficits; I10 Essential (primary) hypertension; C61 Malignant neoplasm of prostate | CPT/HCPCS: 11042; 11045; A9270 ==

== ENCOUNTER → 2024-02-11 | Outpatient (CLI) | payer MEDICARE, MEDICAID, SELFPAY | END | disposition home or self-care (01) | LOC: SWHD 14:14 | PROVIDERS: PCP Family Medicine; Referring Provider Family Medicine; Visit Provider Student in an Organized Health Care Education/Training Program | DX: L97.822 Non-pressure chronic ulcer of other part of left lower leg with fat layer exposed (principal); L97.512 Non-pressure chronic ulcer of other part of right foot with fat layer exposed; L97.522 Non-pressure chronic ulcer of other part of left foot with fat layer exposed; I73.9 Peripheral vascular disease, unspecified; I25.10 Atherosclerotic heart disease of native coronary artery without angina pectoris; Z86.73 Personal history of transient ischemic attack (TIA), and cerebral infarction without residual deficits; I10 Essential (primary) hypertension; C61 Malignant neoplasm of prostate | CPT/HCPCS: 11042; 11045 ×5; 11043; 11046; A9270 ==

== ENCOUNTER → 2024-02-18 | Outpatient (CLI) | payer MEDICARE, MEDICAID, SELFPAY | END | disposition home or self-care (01) | LOC: SWHD 08:29 | PROVIDERS: PCP Family Medicine; Referring Provider Family Medicine; Visit Provider Student in an Organized Health Care Education/Training Program | DX: L97.822 Non-pressure chronic ulcer of other part of left lower leg with fat layer exposed (principal); L97.512 Non-pressure chronic ulcer of other part of right foot with fat layer exposed; L97.522 Non-pressure chronic ulcer of other part of left foot with fat layer exposed; I73.9 Peripheral vascular disease, unspecified; I25.10 Atherosclerotic heart disease of native coronary artery without angina pectoris; Z86.73 Personal history of transient ischemic attack (TIA), and cerebral infarction without residual deficits; I10 Essential (primary) hypertension; C61 Malignant neoplasm of prostate | CPT/HCPCS: 11042; 11045 ×19; A9270 ==

== ENCOUNTER 2024-02-23 11:35 | Emergency (ER) | payer MEDICARE, MEDICAID, SELFPAY ==
[2024-02-23 11:49] VITALS: PULSE 69; PULSE 87; O2SAT 98; BMI 25.7
[2024-02-23 11:51] VITALS: BP 113/70; PULSE 75; RESP 18; TEMP 37.6; O2SAT 98
--- NOTE | 2024-02-23 12:25 | XR_ITS ---
Examination: CT brain head without contrast. 2-D sagittal coronal reconstructions Date and time of exam:February 23, 2024 1303 hrs. Comparison January 26, 2014 Indications: Onset confusion today CTDI: vol (mGy):52.9 DLP: (mGycm):1222 Technique: Multiple CT axial sections of the brain have been obtained, 5 mm slice thickness. Contrast has not been administered. 2-D sagittal, coronal reconstructions have been obtained Low dose protocols were performed. One or more of the following dose reduction techniques were used; automated exposure control, adjustment of the mA and/or KV according to patient size, use of iterative reconstruction technique. Findings: Patient motion severely degrades scan image quality No significant ventricular enlargement. Right temporal frontal encephalomalacia Right occipital encephalomalacia Intra-axial or extra-axial hemorrhage density is not seen. No mass effect or midline shift Basal cisterns are not remarkable. Fourth ventricle is midline. Cranial vault intact. Impression: Patient motion severely degrades scan image quality No gross hemorrhage or mass effect Repeat this study as clinically warranted
--- NOTE | 2024-02-23 12:27 | EDNOTE_ITS ---
ED General RME/HPI General Chief complaint: Altered Mental Status Stated complaint: BEHAVIORAL Time Seen by Provider: 02/23/24 12:25 Arrival date/time: 02/23/24 11:35 CC: Altered mental status HPI patient presents to the ER via EMS report altered mental status she is coming from care facility where the , at bedside, states the patient was normal at 7 PM yesterday but this morning was confused. Patient is being treated for foot osteomyelitis. EMS and nurse report the patient is mildly confused however when I asked the patient he is awake alert oriented x 2, with no focal deficits. at bedside states the patient is more confused. Related Data Home Medications ?Medication ?Instructions ?Recorded ?Confirmed tamsulosin 0.4 mg capsule 0.4 mg PO QHS 08/02/21 12/13/23 apixaban 5 mg tablet (Eliquis) 5 mg PO 2XD 11/10/23 12/13/23 metoprolol succinate 25 mg 25 mg PO QDAY 11/10/23 12/13/23 tablet,extended release 24 hr hydrocodone 10 mg-acetaminophen 1 tab PO Q4H PRN Pain 12/13/23 12/13/23 325 mg tablet lidocaine HCl 4 % topical cream 1 applic topical QDAY 12/13/23 12/13/23 (Lidocaine Plus) loperamide 2 mg tablet 2 mg PO Q8H PRN Pain (Scale Score 12/13/23 12/13/23 7-10) magnesium hydroxide 400 mg/5 mL 30 ml PO Q72H PRN Constipation 12/13/23 12/13/23 oral suspension (Milk of Magnesia) morphine 15 mg tablet,extended 15 mg PO BID 12/13/23 12/13/23 release Previous Rx's ?Medication ?Instructions ?Recorded acetaminophen 325 mg tablet 650 mg (2 x 325 mg) PO Q6H PRN 11/16/23 Fever >100.3 #10 tabs docusate sodium 100 mg capsule 100 mg PO BID #60 caps 11/16/23 furosemide 40 mg tablet 40 mg PO QDAY 30 days #30 tabs 11/16/23 ceftriaxone 2 gram solution for 2 g continuous IV infusion QDAY 12/14/23 injection Osteomyelitis #40 ea doxycycline hyclate 100 mg tablet 100 mg PO BID Osteomyelitis #80 12/14/23 tabs Allergies Allergy/AdvReac Type Severity Reaction Status Date / Time No Known Allergies Allergy Unverified 11/03/23 14:39 Review of Systems Review of Systems ROS Unobtainable: unobtainable due to mental status Past Medical History Past Medical History NEUROLOGIC: Positive Neurological Disorders and Cerebrovascular Accident (left side deficit); Negative Seizures CARDIAC: Positive Cardiac Disorders, Myocardial Infarction, Peripheral Vascular Disease, Hypercholesterolemia, Congestive Heart Failure, Deep Vein Thrombosis and Hypertension RESPIRATORY: Negative Chronic Obstructive Pulmonary Disease (COPD) or Asthma GENITOURINARY: Positive Prostate Cancer and Benign Prostatic Hyperplasia; Negative Renal Disease MUSCULOSKELETAL: Negative Musculoskeletal Disorders ENDOCRINE: Negative Endocrine Disorders, Diabetes Mellitus Type 1 or Diabetes Mellitus Type 2 HEMATOLOGIC: Negative Sickle Cell Disease OTHER HISTORY: Positive Cancer and Prostate Cancer; Negative Hospitalization, Autoimmune Disease, Down Syndrome, Developmental Delay, Falls, Blood Transfusions, Blood Transfusion Reaction or Anesthesia Reactions Surgical History SURGICAL: Positive Amputation (left great toe) Social History SMOKING STATUS: Never smoker SECOND HAND EXPOSURE: No SUBSTANCE USE: does not use 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 All other subsystems HEENT are within acceptable limits Neck is supple nontender, no JVD no edema Chest equal chest rise nontender to palpation Respiratory: Clear to auscultation no wheezes crackles or rubs CV: Rate rhythm is regular no murmurs rubs or clicks Abdomen is distended secondary to body habitus soft nontender no masses positive bowel sounds all 4 quadrants Back: No CVA tenderness no spinous process tenderness from cervical spine thoracic and lumbar spine Skin: Large right lateral foot ulcerations including and involvement of the distal portion of the foot to the fourth and fifth digits are absent, cratering, with surrounding eschar, no surrounding erythema or edema. Tip of the second digit is black. Otherwise skin is intact no petechiae rash induration ulceration or crepitus Extremities: Moving all extremity against resistance cap refill less than 2 seconds neurosensory intact Neuro: Awake alert oriented x2, person and place, Glascow coma 15 no focal deficits] Course Quality Measures none Orders Category Date Time Status In and Out Catheter X1 Care 02/23/24 12:[address] head/brain wo con Stat Exams 02/23/24 12:25 Completed XR chest 1V Stat Exams 02/23/24 13:55 Completed Blood Culture (Lab) Stat Lab 02/23/24 12:51 Received CBC Stat Lab 02/23/24 12:51 Completed CMP [Comprehensive Metabolic Panel] Stat Lab 02/23/24 12:51 Completed Drug Screen,Urine Stat Lab 02/23/24 13:28 Completed Lactic Acid [Lactate (Lactic Acid)] Stat Lab 02/23/24 12:51 Completed Procalcitonin Stat Lab 02/23/24 12:51 Completed Urinalysis Stat Lab 02/23/24 13:28 Completed Urine Culture Stat Lab 02/23/24 13:28 Received Vital Signs Vital signs: Vital Signs Pulse Rate 69 02/23/24 11:49 [facility] Patient data External records reviewed:: [facility] previous records and EMS form Clinical information provided by:: patient and EMS Social determinants that could affect healthcare access:: none Patient has the following chronic illnesses:: Hyperlipidemia osteomyelitis on Eliquis CVA CHF peripheral vascular disease How is presenting disease/condition affected by chronic disease/condition?: u neffected by Evaluation data The following diagnostics were reviewed and interpreted by me:: lab results and radiology exam(s) Lab and/or radiology exams considered but not ordered:: CBC shows no leukocytosis there is a chronic but stable anemia, no thrombocytopenia CMP shows no acute electrolyte imbalances renal impairment transaminitis or T. bili elevation Urine is negative for UTI CT of the head with motion artifact but no gross abnormalities interpreted by me read by radiology. Chest x-ray shows no acute infiltrate or acute finding requires emergent or immediate intervention. UDS is positive for methamphetamines opiates and fentanyl. Interpretation Summary: Review the medical record show the patient has a history of methamphetamine abuse. At this time patient be discharged home I did suspect the altered behavior secondary to probably pharmacy. Medications Medications considered but not ordered:: None Medication administrations:: None Consultations Consultation(s) initiated? (list below): No Diagnosis Differential Diagnosis ED Complaint MDM: Altered manage stat electrolyte imbalance infection Most likely diagnosis given after review of the tests above:: Altered mental status Admission Indicated Admission indicated?: not indicated Explain why admission is indicated or not indicated:: Stable for discharge Admission Request Was there a request for admission?: No Disposition Plan Disposition Plan: Discharge Discharge Attestation Discharge Attestation: The patient and all family members were given an opportunity to ask questions and understood the discharge instructions. Discharge instructions specifically effects, indications for sooner follow up or return to the emergency department, and the expected course of current diagnosis. Patient condition: Stable Medical Decision Making Differential Diagnosis Differential Diagnosis: Altered manage stat electrolyte imbalance infection Lab Data 02/23/24 12:51 02/23/24 12:51 Labs: Lab Results 02/23/24 02/23/24 02/23/24 Range/Units 12:51 12:51 13:28 WBC 9.5 (3.8-10.6) Thou/mm3 RBC 4.10 L (4.50-5.90) Miln/mm3 Hgb 9.1 L (13.5-16.0) g/dL Hct 29.4 L (41.0-53.0) % MCV 72 L (80-100) fL MCH 22.2 L (25.0-35.0) pg MCHC 31.0 (31.0-37.0) g/dl RDW Std Deviation 46.5 H (35.1-43.9) fL Plt Count 393 D (140-440) Thou/mm3 Neut % (Auto) 81 H (37-80) % Lymph % (Auto) 9 L (10-50) % [place] % (Auto) 9 (0-12) % Eos % (Auto) 1 (0-10) % Baso % (Auto) 0 (0-2.5) % Neut # (Auto) 7.7 (1.8-7.7) Thou/mm3 Lymph # (Auto) 0.8 L (1.0-4.8) Thou/mm3 [place] # (Auto) 0.9 H (0.0-0.8) Thou/mm3 Eos # (Auto) 0.1 (0.0-0.5) Thou/mm3 Baso # (Auto) 0.0 (0.0-0.2) Thou/mm3 Immature Gran # (Auto) 0.04 H (0.00-0.00) Thou/mm3 Absolute Nucleated RBC 0.00 (0.00-0.00) Thou/mm3 Immature Gran % 0 (0-0) % Nucleated RBC % 0 (0) /100 WBC Sodium 140 (136-145) mMol/L Potassium 3.7 (3.4-5.1) mMol/L Chloride 105 (98-107) mMol/L Carbon Dioxide 26.5 (20.0-31.0) mMol/L Anion Gap 9 (7-16) BUN 22 (9-23) mg/dL Creatinine 1.2 (0.6-1.3) mg/dL Estim Creat Clear Calc 63.7 (>60) mL/min eGFR > 60 (60 - ) See Note BUN/Creatinine Ratio 18 (12-20) Ratio Glucose 95 (74-106) mg/dL Calculated Osmolality 282 (275-295) Lactic Acid 1.1 (0.4-2.0) mMol/L Calcium 9.1 (8.3-10.6) mg/dL Corrected Calcium 9.1 (8.5-10.1) mg/dL Total Bilirubin 0.7 (0.3-1.2) mg/dL AST 20 (0-34) U/L ALT 23 (10-49) U/L Alkaline Phosphatase 92 (46-116) U/L Total Protein 7.3 (5.7-8.2) gm/dL Albumin 4.0 (3.4-4.8) gm/dL Globulin 3.3 (2.3-3.5) gm/dL Albumin/Globulin Ratio 1.2 (1.2-2.2) Procalcitonin 0.08 Cancelled (0.0-0.49) ng/ml Ur Collection Type Catheter Urine Color Lt-Yellow (Lt Yel-Yel) Urine Clarity Clear (Clear/Hazy) Urine pH 7.0 (5.0-7.0) Ur Specific [place] 1.014 (1.001-1.035) Urine Protein Negative (Neg - Trace) Urine Glucose (UA) Negative (Negative) Urine Ketones Negative (Negative) Urine Blood Negative (Negative) Urine Nitrite Negative (Negative) Urine Bilirubin Negative (Negative) Urine Urobilinogen (Auto) Negative (0.0-1.0) mg/dL Ur Leukocyte Esterase Negative (Negative) Urine RBC 1 (0-3) /hpf Urine WBC 2 (0-5) /hpf Ur Squamous Epith Cells < 1 (0-5) /hpf Urine Bacteria None (None) Urine Opiates Screen Positive A (Negative) Urine Fentanyl Screen Positive A (Negative) Ur Barbiturates Screen Negative (Negative) U Amphetamin/Meth Scrn Positive A (Negative) U Benzodiazepines Scrn Negative (Negative) U Cocaine Metab Screen Negative (Negative) U Marijuana (THC) Screen Negative (Negative) Discharge Plan Plan Patient Disposition: HOME (Self Care) Patient condition on transfer: Stable Prescriptions/Referrals Prescriptions/Med Rec: No Action tamsulosin 0.4 mg capsule 0.4 mg PO QHS metoprolol succinate 25 mg tablet extended release 24 hr 25 mg PO QDAY Patient Comments: TAKE ONE TABLET BY MOUTH EVERY DAY FOR BLOOD PRESSURE Eliquis 5 mg tablet 5 mg PO 2XD Patient Comments: TAKE ONE TABLET BY MOUTH TWICE DAILY FOR THE HEART acetaminophen 325 mg Tablet 650 mg PO Q6H PRN (Reason: Fever >100.3) Qty: 10 0RF furosemide 40 mg tablet 40 mg PO QDAY 30 Days Qty: 30 3RF docusate sodium 100 mg Capsule 100 mg PO BID Qty: 60 0RF loperamide 2 mg Tablet 2 mg PO Q8H PRN (Reason: Pain (Scale Score 7-10)) hydrocodone-acetaminophen 10-325 mg Tablet 1 tab PO Q4H PRN (Reason: Pain) morphine 15 mg Tablet Extended Release 15 mg PO BID lidocaine HCl [Lidocaine Plus] 4 % Cream 1 applic TOPICAL QDAY Rx Instructions: Apply to L foot surgical site topically QD for pain management for 21 days. magnesium hydroxide [Milk of Magnesia] 400 mg/5 mL Suspension 30 ml PO Q72H PRN (Reason: Constipation) ceftriaxone 2 gram recon soln 2 g continuous IV infusion QDAY Qty: 40 0RF Rx Instructions: Please continue with this medicine until 01/22/2024 for total duration of 6 weeks. doxycycline hyclate 100 mg tablet 100 mg PO BID Qty: 80 0RF Rx Instructions: Please continue this medicine until 01/22/2024 for osteomyelitis. Referrals: Fernando Calle MD [Primary Care Provider] - In 1 week Problem List Clinical Impression: Confusion, Polysubstance abuse Patient/Caregiver Discharge Instructions Education Materials: ED Confusion, ED Drug Abuse Additional Instructions: Stop using fentanyl and or methamphetamines. Print Language: Yi Stand Alone Forms: Litzy Award Info., Patient Portal Info Letter PA/REPAIR DEPARTMENT MANAGER Supervising Physician PA/REPAIR DEPARTMENT MANAGER Supervising Physician: Alok Javed ENP
[2024-02-23 13:00] LABS: Lactate (Lactic Acid) 1.1 mMol/L (0.4-2.0)
[2024-02-23 13:06] LABS: Basophils % (Auto) 0 % (0-2.5); Eosinophils # (Auto) 0.1 Thou/mm3 (0.0-0.5); Eosinophils % (Auto) 1 % (0-10); Hematocrit 29.4 % (41.0-53.0); Hemoglobin 9.1 g/dL (13.5-16.0); Immature Granulocytes % (Auto) 0 % (0-0); Immature Granulocytes Auto 0.04 Thou/mm3 (0.00-0.00); Lymphocytes # (Auto) 0.8 Thou/mm3 (1.0-4.8); Lymphocytes % (Auto) 9 % (10-50); Mean Corpuscular Hemoglobin 22.2 pg (25.0-35.0); Mean Corpuscular Volume 72 fL (80-100); Monocytes # (Auto) 0.9 Thou/mm3 (0.0-0.8); Monocytes % (Auto) 9 % (0-12); Neutrophils # (Auto) 7.7 Thou/mm3 (1.8-7.7); Neutrophils % (Auto) 81 % (37-80); Nucleated Red Blood Cell % 0 /100 WBC (0); Platelet Count 393 Thou/mm3 (140-440); RDW Standard Deviation 46.5 fL (35.1-43.9); White Blood Count 9.5 Thou/mm3 (3.8-10.6)
[2024-02-23 13:30] LABS: Alanine Aminotransferase 23 U/L (10-49); Albumin/Globulin Ratio 1.2 (1.2-2.2); Alkaline Phosphatase 92 U/L (46-116); Anion Gap 9 (7-16); Aspartate Amino Transferase 20 U/L (0-34); BUN/Creatinine Ratio 18 Ratio (12-20); Bilirubin,Total 0.7 mg/dL (0.3-1.2); Blood Urea Nitrogen 22 mg/dL (9-23); Calcium 9.1 mg/dL (8.3-10.6); Calcium (Corrected) 9.1 mg/dL (8.5-10.1); Carbon Dioxide 26.5 mMol/L (20.0-31.0); Chloride 105 mMol/L (98-107); Creatinine (Component) 1.2 mg/dL (0.6-1.3); Estimated Creatinine Clearance 63.7 mL/min (>60); Globulin 3.3 gm/dL (2.3-3.5); Glucose 95 mg/dL (74-106); Osmolality,Calculated 282 (275-295); Potassium 3.7 mMol/L (3.4-5.1); Procalcitonin 0.08 ng/ml (0.0-0.49); Sodium 140 mMol/L (136-145); Total Protein 7.3 gm/dL (5.7-8.2); eGFR > 60 See Note
[2024-02-23 13:33] VITALS: BP 112/69; PULSE 71; RESP 20; TEMP 37.1; O2SAT 99
[2024-02-23 13:39] LABS: Collection Type, Urine Catheter
[2024-02-23 13:45] VITALS: PULSE 80
[2024-02-23 13:54] LABS: Bilirubin,Urine Negative (Negative); Blood,Urine Negative (Negative); Clarity,Urine Clear (Clear/Hazy); Color,Urine Lt-Yellow (Lt Yel-Yel); Glucose, Urine Negative (Negative); Ketones,Urine Negative (Negative); Leukocyte Esterase,Urine Negative (Negative); Nitrite,Urine Negative (Negative); Protein,Urine Negative (Neg - Trace); RBC,Urine 1 /hpf (0-3); Specific Gravity,Urine 1.014 (1.001-1.035); Squamous Epithelial Cell,Urine < 1 /hpf (0-5); Urobilinogen,Urine Negative mg/dL (0.0-1.0); WBC,Urine 2 /hpf (0-5)
--- NOTE | 2024-02-23 13:55 | XR_ITS ---
Examination: AP chest single view Technique: AP portable semiupright chest single view Exam date and time: February 23, 2024 1415 hrs. Comparison July 04, 2023 Indications: Coughing beginning 3 days ago Findings: Mild prominence left ventricle Mild vascular congestion. No lobar pneumonia. No pulmonary edema The osseous structures are intact Impression: Mild vascular congestion
[2024-02-23 14:40] LABS: Amphetamine/Methamp Scrn,U Positive (Negative); Barbiturate Screen,Urine Negative (Negative); Benzodiazepines Screen,Urine Negative (Negative); Benzoylecgonine Screen, Ur Negative (Negative); Fentanyl Screen,Urine Positive (Negative); Opiate Screen,Urine Positive (Negative); THC Screen,Urine Negative (Negative)
[2024-02-23 15:28] VITALS: BP 104/55; PULSE 76; RESP 20; TEMP 37.2; O2SAT 98
[2024-02-23 15:30] VITALS: BP 101/77; PULSE 70; RESP 19; TEMP 37.1; O2SAT 97
--- NOTE | 2024-02-23 15:35 | PC.NURSE ---
SPOKE TO CELINA STRANGE FROM [facility] FOR RN-RN REPORT AND FOR POSSIBLE TRANSPORTATION BACK TO [facility]; PER CELINA STRANGE, WE WILL SET UP TRANSPORTATION FOR PT IN ABOUT 15 MINUTES.
--- NOTE | 2024-02-23 16:14 | PC.NURSE ---
Addendum entered by Maritza King RN 02/23/24 16:14: BRYN Cortez FROM [facility] HERE TO MANAGER [employer] PT FOR TRANSPORTATION BACK TO [facility] @ [id number] Original Note: BRYN Ribeiro. FROM [facility] HERE TO MANAGER [employer] PT FOR TRANSPORTATION BACK TO [facility].
== END 2024-02-23 16:13 | disposition home or self-care (01) ==
PROVIDERS: Registered Nurse General Practice; Emergency Provider Emergency Medicine; PCP Family Medicine
DX: R41.0 Disorientation, unspecified (principal); F19.10 Other psychoactive substance abuse, uncomplicated
CPT/HCPCS: 36415; 70450; 71045; 80053; 80307; 81001; 83605; 84145; 85025; 87040; 87086; 99284

== ENCOUNTER → 2024-02-25 | Outpatient (CLI) | payer MEDICARE, MEDICAID, SELFPAY | END | disposition home or self-care (01) | PROVIDERS: PCP Family Medicine; Referring Provider Family Medicine; Visit Provider Student in an Organized Health Care Education/Training Program | DX: L97.822 Non-pressure chronic ulcer of other part of left lower leg with fat layer exposed (principal); L97.512 Non-pressure chronic ulcer of other part of right foot with fat layer exposed; L97.522 Non-pressure chronic ulcer of other part of left foot with fat layer exposed; L97.828 Non-pressure chronic ulcer of other part of left lower leg with other specified severity; I73.9 Peripheral vascular disease, unspecified; I25.10 Atherosclerotic heart disease of native coronary artery without angina pectoris; I10 Essential (primary) hypertension; C61 Malignant neoplasm of prostate; Z86.73 Personal history of transient ischemic attack (TIA), and cerebral infarction without residual deficits | CPT/HCPCS: 11042; 11045 ×5; 97597; A9270 ==

== ENCOUNTER 2024-03-01 10:57 | Inpatient (IN) | payer MEDICARE, MEDICAID, SELFPAY ==
[2024-03-01] VITALS (7 sets, daily range): BP systolic 103–149; BP diastolic 50–96; PULSE 74–91; RESP 18–21; TEMP 36.7–37.6; O2SAT 95–100; BMI 28.0
--- NOTE | 2024-03-01 11:29 | XR_ITS ---
Examination: Foot, left, 3 views Technique: AP, oblique, lateral views foot, 3 views Date and time of exam: March 01, 2024 at 11:32 AM Comparison December 12, 2023 INDICATIONS: Left foot redness swelling and pain this week FINDINGS: Cortical bone destruction at the amputated first metatarsal site No fracture Prominent osteopenia IMPRESSION: Osteomyelitis first metatarsal Pronounced soft tissue swelling dorsum of the foot Consider MRI foot without contrast follow-up to best assess full extent of osteomyelitis
--- NOTE | 2024-03-01 11:35 | EDNOTE_ITS ---
ED General RME/HPI General Chief complaint: Wound Recheck / Suture Removal Stated complaint: LEFT FOOT INFECTION Time Seen by Provider: 03/01/24 11:29 Arrival date/time: 03/01/24 10:57 CC: Open wounds to the left foot HPI patient is recently discharged from rehab to home, EMS report the stating that the foot looks worse , EMS reports stable vital signs and route. The patient is verbose, but not agitated or belligerent. Seen here recently for confusion and was determined to be on methamphetamines and fentanyl. Patient currently has no specific complaints other than wanting a room. Related Data Home Medications ?Medication ?Instructions ?Recorded ?Confirmed tamsulosin 0.4 mg capsule 0.4 mg PO QHS 08/02/21 12/13/23 apixaban 5 mg tablet (Eliquis) 5 mg PO 2XD 11/10/23 12/13/23 metoprolol succinate 25 mg 25 mg PO QDAY 11/10/23 12/13/23 tablet,extended release 24 hr hydrocodone 10 mg-acetaminophen 1 tab PO Q4H PRN Pain 12/13/23 12/13/23 325 mg tablet lidocaine HCl 4 % topical cream 1 applic topical QDAY 12/13/23 12/13/23 (Lidocaine Plus) loperamide 2 mg tablet 2 mg PO Q8H PRN Pain (Scale Score 12/13/23 12/13/23 7-10) magnesium hydroxide 400 mg/5 mL 30 ml PO Q72H PRN Constipation 12/13/23 12/13/23 oral suspension (Milk of Magnesia) morphine 15 mg tablet,extended 15 mg PO BID 12/13/23 12/13/23 release Previous Rx's ?Medication ?Instructions ?Recorded acetaminophen 325 mg tablet 650 mg (2 x 325 mg) PO Q6H PRN 11/16/23 Fever >100.3 #10 tabs docusate sodium 100 mg capsule 100 mg PO BID #60 caps 11/16/23 furosemide 40 mg tablet 40 mg PO QDAY 30 days #30 tabs 11/16/23 ceftriaxone 2 gram solution for 2 g continuous IV infusion QDAY 12/14/23 injection Osteomyelitis #40 ea doxycycline hyclate 100 mg tablet 100 mg PO BID Osteomyelitis #80 12/14/23 tabs Allergies Allergy/AdvReac Type Severity Reaction Status Date / Time No Known Allergies Allergy Unverified 11/03/23 14:39 Review of Systems Review of Systems Narrative Review of Systems: GEN: No fever, no chills, no weight loss EYES: No discharge, no visual changes, no pain HEENT: No ear pain, no congestion, no sore throat PULM: No shortness of breath, no cough, no congestion CV: No chest pain, no dyspnea on exertion, no palpitations GI: No nausea, no vomiting, no diarrhea, no pain, no constipation : No frequency, no urgency, no dysuria MUSC/SKEL: No joint pain, no back pain SKIN: No rash PSYCH: No hallucinations, no depression HEME/LYMPH: No easy bleeding or bruising tendencies NEURO: No weakness, no headache Past Medical History Past Medical History NEUROLOGIC: Positive Neurological Disorders and Cerebrovascular Accident (left side deficit); Negative Seizures CARDIAC: Positive Cardiac Disorders, Myocardial Infarction, Peripheral Vascular Disease, Hypercholesterolemia, Congestive Heart Failure, Deep Vein Thrombosis and Hypertension RESPIRATORY: Negative Chronic Obstructive Pulmonary Disease (COPD) or Asthma GENITOURINARY: Positive Prostate Cancer and Benign Prostatic Hyperplasia; Negative Renal Disease MUSCULOSKELETAL: Negative Musculoskeletal Disorders ENDOCRINE: Negative Endocrine Disorders, Diabetes Mellitus Type 1 or Diabetes Mellitus Type 2 HEMATOLOGIC: Negative Sickle Cell Disease OTHER HISTORY: Positive Cancer and Prostate Cancer; Negative Hospitalization, Autoimmune Disease, Down Syndrome, Developmental Delay, Falls, Blood Transfusions, Blood Transfusion Reaction or Anesthesia Reactions Surgical History SURGICAL: Positive Amputation (left great toe) Social History SMOKING STATUS: Former smoker SECOND HAND EXPOSURE: No SUBSTANCE USE: does not use 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 ED Exam Narrative Physical exam: [General: Obese, appears not in any acute distress Head normocephalic HEENT: Within acceptable limits Neck is supple nontender Chest equal chest rise nontender to palpation Respiratory: Clear to auscultation no wheezes crackles or rubs CV: Rate rhythm is regular no murmurs rubs or clicks Abdomen is distended secondary to body habitus soft nontender no masses positive bowel sounds all 4 quadrants Back: No CVA tenderness no spinous process tenderness from cervical spine thoracic and lumbar spine Skin: Open ulcerations and erosions to the area of the left foot digits 4 5 missing digits 2-3 tips are black. Multiple ulcerations also to the anterior surface of the ankle without any significant oozing. Extremities: Moving all extremity against resistance cap refill less than 2 seconds neurosensory intact Neuro: Awake alert oriented x1, self, Glascow coma 15 no focal deficits] Course Course Course Narrative: Case discussed with Dr. Randhawa agrees to consult for surgery. Patient's case discussed with Dr. Combs who resident, who agrees to accept the patient for Dr. Chambers, attending, for admission. Quality Measures none Orders Category Date Time Status Saline [Insert IV] NOW Care 03/01/24 11:32 Active US venous doppler LE LT Stat Exams 03/01/24 11:38 Completed XR foot comp LT min 3V Stat Exams 03/01/24 11:29 Completed CBC Stat Lab 03/01/24 11:45 Completed CMP [Comprehensive Metabolic Panel] Stat Lab 03/01/24 11:45 Completed CRP [C-Reactive Protein] Stat Lab 03/01/24 11:45 Received Drug Screen,Urine Stat Lab 03/01/24 11:32 Ordered PT [Prothrombin Time with INR] Stat Lab 03/01/24 11:45 Completed PTT [Partial Thromboplastin Time] Stat Lab 03/01/24 11:45 Completed Sed Rate (ESR) Stat Lab 03/01/24 11:45 Completed Urine Culture Stat Lab 03/01/24 11:32 Ordered Piper/Tazo Inj [Zosyn Inj] 3.375 gm Med 03/01/24 12:38 Discontinued Sodium Chloride 0.9% (P) [Ns 0.9% (P)] 50 ml IV X1 Sodium Chloride 0.9% 1000 ml [Ns] 1,000 ml Med 03/01/24 11:32 Discontinued IV 999 mls/hr Vital Signs Vital signs: Vital Signs Temperature 98.4 F 03/01/24 11:39 Pulse Rate 85 03/01/24 11:39 Respiratory Rate 21 H 03/01/24 11:39 Blood Pressure 149/73 H 03/01/24 11:39 Pulse Oximetry (%) 95 03/01/24 11:39 Oxygen Delivery Method Room Air 03/01/24 11:39 [facility] Patient data External records reviewed:: [facility] previous records and EMS form Clinical information provided by:: patient and EMS Social determinants that could affect healthcare access:: none Patient has the following chronic illnesses:: Methamphetamine abuse hypertension chronic foot ulcers on Eliquis How is presenting disease/condition affected by chronic disease/condition?: e xacerbated by Evaluation data The following diagnostics were reviewed and interpreted by me:: lab results and radiology exam(s) Lab and/or radiology exams considered but not ordered:: CBC shows a leukocytosis of 14.9 H&H of 8.2 and 26.2 respectively with platelets 360 CMP shows a sodium 137 potassium 3.7 chloride of 103 CO2 of 23.3 BUN of 20 creatinine of 0.8 glucose of 94 gap of 11 Coags show an INR of 1.3 Ultrasound of the legs show there is no DVT. Interpretation Summary: Review the medical record show the patient was seen here October with the same complaint at that time he was advised for BKA of the left leg however he adamantly refused even after a second surgical consult as well as a vascular surgeon consult. Patient has had 2 intermittent admissions to the emergency room one of them for confusion at which time was determined that the patient was positive for methamphetamines and fentanyl while in the rehab facility. Patient was discharged home yesterday and now returns via EMS. I had a neeraj conversation with the patient regarding his leg and that he probably would need a below the knee amputation in order to spare his life. The patient is now open to the possibility. Medications Medications considered but not ordered:: None Medication administrations:: Medication Administration History Discontinued Medications Sodium Chloride (Ns) 1,000 mls @ 999 mls/hr IV .Q1H1M ONE Stop: 03/01/24 12:32 Last Admin: 03/01/24 12:39 Dose: 999 mls/hr Documented By: YAZMIN Piperacillin Sod/Tazobactam (Sod 3.375 gm/ Sodium Chloride) 50 mls @ 100 mls/hr IV X1 ONE Stop: 03/01/24 13:07 None Consultations Consultation(s) initiated? (list below): No Diagnosis Differential Diagnosis ED Complaint MDM: Foot osteomyelitis foot cellulitis foot abscess Most likely diagnosis given after review of the tests above:: Foot osteomyelitis Admission Indicated Admission indicated?: indicated Explain why admission is indicated or not indicated:: Requires further medical and surgical management Admission Request Was there a request for admission?: No Disposition Plan Disposition Plan: Admit Medical Decision Making Differential Diagnosis Differential Diagnosis: Foot osteomyelitis foot cellulitis foot abscess Lab Data 03/01/24 11:45 03/01/24 11:45 Labs: Lab Results 03/01/24 Range/Units 11:45 WBC 14.9 H D (3.8-10.6) Thou/mm3 RBC 3.66 L (4.50-5.90) Miln/mm3 Hgb 8.2 L (13.5-16.0) g/dL Hct 26.2 L (41.0-53.0) % MCV 72 L (80-100) fL MCH 22.4 L (25.0-35.0) pg MCHC 31.3 (31.0-37.0) g/dl RDW Std Deviation 46.3 H (35.1-43.9) fL Plt Count 360 D (140-440) Thou/mm3 Neut % (Auto) 83 H (37-80) % Lymph % (Auto) 7 L (10-50) % Morrison % (Auto) 9 (0-12) % Eos % (Auto) 1 (0-10) % Baso % (Auto) 1 (0-2.5) % Neut # (Auto) 12.4 H (1.8-7.7) Thou/mm3 Lymph # (Auto) 1.1 (1.0-4.8) Thou/mm3 Morrison # (Auto) 1.3 H (0.0-0.8) Thou/mm3 Eos # (Auto) 0.1 (0.0-0.5) Thou/mm3 Baso # (Auto) 0.1 (0.0-0.2) Thou/mm3 Immature Gran # (Auto) 0.07 H (0.00-0.00) Thou/mm3 Absolute Nucleated RBC 0.00 (0.00-0.00) Thou/mm3 Immature Gran % 1 H (0-0) % Nucleated RBC % 0 (0) /100 WBC ESR 65 H (0-20) mm/hr PT 13.5 H (9.0-12.2) Seconds INR 1.3 (0.9-1.3) APTT 32.1 (22.0-36.0) Seconds Sodium 137 (136-145) mMol/L Potassium 3.7 (3.4-5.1) mMol/L Chloride 103 (98-107) mMol/L Carbon Dioxide 23.3 (20.0-31.0) mMol/L Anion Gap 11 (7-16) BUN 20 (9-23) mg/dL Creatinine 0.8 (0.6-1.3) mg/dL Estim Creat Clear Calc 89.4 (>60) mL/min eGFR > 60 (60 - ) See Note BUN/Creatinine Ratio 25 H (12-20) Ratio Glucose 94 (74-106) mg/dL Calculated Osmolality 276 (275-295) Calcium 8.6 (8.3-10.6) mg/dL Corrected Calcium 9.0 (8.5-10.1) mg/dL Total Bilirubin 0.6 (0.3-1.2) mg/dL AST 22 (0-34) U/L ALT 24 (10-49) U/L Alkaline Phosphatase 83 (46-116) U/L Total Protein 6.3 (5.7-8.2) gm/dL Albumin 3.5 (3.4-4.8) gm/dL Globulin 2.8 (2.3-3.5) gm/dL Albumin/Globulin Ratio 1.3 (1.2-2.2) Discharge Plan Plan Patient Disposition: Other Care w/in Hosp ([facility]) Patient condition on transfer: Stable Prescriptions/Referrals Prescriptions/Med Rec: No Action tamsulosin 0.4 mg capsule 0.4 mg PO QHS metoprolol succinate 25 mg tablet extended release 24 hr 25 mg PO QDAY Patient Comments: TAKE ONE TABLET BY MOUTH EVERY DAY FOR BLOOD PRESSURE Eliquis 5 mg tablet 5 mg PO 2XD Patient Comments: TAKE ONE TABLET BY MOUTH TWICE DAILY FOR THE HEART acetaminophen 325 mg Tablet 650 mg PO Q6H PRN (Reason: Fever >100.3) Qty: 10 0RF furosemide 40 mg tablet 40 mg PO QDAY 30 Days Qty: 30 3RF docusate sodium 100 mg Capsule 100 mg PO BID Qty: 60 0RF loperamide 2 mg Tablet 2 mg PO Q8H PRN (Reason: Pain (Scale Score 7-10)) hydrocodone-acetaminophen 10-325 mg Tablet 1 tab PO Q4H PRN (Reason: Pain) morphine 15 mg Tablet Extended Release 15 mg PO BID lidocaine HCl [Lidocaine Plus] 4 % Cream 1 applic TOPICAL QDAY Rx Instructions: Apply to L foot surgical site topically QD for pain management for 21 days. magnesium hydroxide [Milk of Magnesia] 400 mg/5 mL Suspension 30 ml PO Q72H PRN (Reason: Constipation) ceftriaxone 2 gram recon soln 2 g continuous IV infusion QDAY Qty: 40 0RF Rx Instructions: Please continue with this medicine until 01/22/2024 for total duration of 6 weeks. doxycycline hyclate 100 mg tablet 100 mg PO BID Qty: 80 0RF Rx Instructions: Please continue this medicine until 01/22/2024 for osteomyelitis. Referrals: Fernando Calle MD [Primary Care Provider] - In 1 week Problem List Clinical Impression: Acute osteomyelitis of left foot Patient/Caregiver Discharge Instructions Print Language: Bangladeshi Stand Alone Forms: Litzy Award Info., Patient Portal Info Letter PA/ATHLETIC EQUIPMENT MANAGER Supervising Physician PA/ATHLETIC EQUIPMENT MANAGER Supervising Physician: Alok Javed ENP
--- NOTE | 2024-03-01 11:38 | XR_ITS ---
Examination: Duplex scan of the lower extremity, unilateral left complete Date and time of exam: March 01, 1999 2554 hours INDICATIONS: Left leg swelling and nonhealing wounds in the ankle and foot region beginning several months ago Technique: Duplex scan of the extremity veins using B-mode/grayscale imaging and Doppler spectral analysis and color flow Attention is directed to internal echogenicity, compression and augmentation involving these veins, color flow assessment, spectral analysis Findings: Major deep venous structures in the extremity demonstrate normal course and caliber. There is no evidence of deep vein thrombosis. Normal color flow and spectral analysis Impression: Negative for DVT..
[2024-03-01 12:01] LABS: Basophils # (Auto) 0.1 Thou/mm3 (0.0-0.2); Basophils % (Auto) 1 % (0-2.5); Eosinophils # (Auto) 0.1 Thou/mm3 (0.0-0.5); Eosinophils % (Auto) 1 % (0-10); Hematocrit 26.2 % (41.0-53.0); Immature Granulocytes % (Auto) 1 % (0-0); Immature Granulocytes Auto 0.07 Thou/mm3 (0.00-0.00); Lymphocytes # (Auto) 1.1 Thou/mm3 (1.0-4.8); Lymphocytes % (Auto) 7 % (10-50); Mean Corpuscular HGB Conc 31.3 g/dl (31.0-37.0); Mean Corpuscular Hemoglobin 22.4 pg (25.0-35.0); Mean Corpuscular Volume 72 fL (80-100); Monocytes # (Auto) 1.3 Thou/mm3 (0.0-0.8); Monocytes % (Auto) 9 % (0-12); Neutrophils # (Auto) 12.4 Thou/mm3 (1.8-7.7); Neutrophils % (Auto) 83 % (37-80); Nucleated Red Blood Cell % 0 /100 WBC (0); Platelet Count 360 Thou/mm3 (140-440); RDW Standard Deviation 46.3 fL (35.1-43.9); Red Blood Count 3.66 Miln/mm3 (4.50-5.90); White Blood Count 14.9 Thou/mm3 (3.8-10.6)
[2024-03-01 12:06] LABS: Hemoglobin 8.2 g/dL (13.5-16.0)
[2024-03-01 12:21] LABS: Alanine Aminotransferase 24 U/L (10-49); Albumin, Serum 3.5 gm/dL (3.4-4.8); Albumin/Globulin Ratio 1.3 (1.2-2.2); Alkaline Phosphatase 83 U/L (46-116); Anion Gap 11 (7-16); Aspartate Amino Transferase 22 U/L (0-34); BUN/Creatinine Ratio 25 Ratio (12-20); Bilirubin,Total 0.6 mg/dL (0.3-1.2); Blood Urea Nitrogen 20 mg/dL (9-23); Calcium 8.6 mg/dL (8.3-10.6); Carbon Dioxide 23.3 mMol/L (20.0-31.0); Chloride 103 mMol/L (98-107); Creatinine (Component) 0.8 mg/dL (0.6-1.3); Estimated Creatinine Clearance 89.4 mL/min (>60); Globulin 2.8 gm/dL (2.3-3.5); Glucose 94 mg/dL (74-106); Osmolality,Calculated 276 (275-295); Potassium 3.7 mMol/L (3.4-5.1); Sodium 137 mMol/L (136-145); Total Protein 6.3 gm/dL (5.7-8.2); eGFR > 60 See Note
[2024-03-01] MEDS: SODIUM CHLORIDE 0.9% 1000 ML 1,000 ML 999 ML IV (12:39)
[2024-03-01 12:57] LABS: INR 1.3 (0.9-1.3); Partial Thromboplastin Time 32.1 Seconds (22.0-36.0); Prothrombin Time 13.5 Seconds (9.0-12.2); Sed Rate (ESR) 65 mm/hr (0-20)
[2024-03-01 13:41] LABS: C-Reactive Protein 10.3 mg/dL (0.0-0.9)
[2024-03-01] MEDS: PIPER/TAZO INJ 3.375 GM in SODIUM CHLORIDE 0.9% (P) 50 ML IV (14:24)
--- NOTE | 2024-03-01 14:30 | XR_ITS ---
Examination: CTA abdominal aorta iliofemoral runoff. 2-D sagittal coronal reconstructions. 3-D reconstructions, vascular March 01, 2024 1531 hours INDICATIONS: Nonhealing open wound left foot this week Technique: Multiple CTA images of the abdominal aorta iliofemoral runoff arterial vessels, 2.0 mm slice thickness, post intravenous administration 130 cc [id number] 2-D sagittal coronal reconstructions. 3-D reconstructions, vascular 3-D postprocessing, including vascular maximum intensity projection images, 3-D volume rendering Low dose protocols were performed. One or more of the following dose reduction techniques were used; automated exposure control, adjustment of the mA and/or KV according to patient size, use of iterative reconstruction technique. Findings: No focal liver or splenic lesions No gallstones Soft tissue mass posterior to the pancreas and anterior to the upper abdominal aorta, axial image 81, 4.3 x 3.2 cm, described on MR abdomen November 12, 2023 and biopsied on 11/18/2023 No hydronephrosis Subcentimeter pericaval lymph nodes No bowel obstruction 8 mm fat-containing umbilical hernia Normal appendix Urinary bladder distended, intact Rectal wall thickening, proctitis pattern Abdominal aortic calcification no aneurysmal dilatation No significant stenosis origin celiac superior mesenteric axes or renal arteries Common iliac and external iliac common femoral arteries intact No critical stenoses right superficial femoral or popliteal artery Much of the popliteal artery is obscured by the patient's knee arthroplasty Occlusion of the proximal right anterior tibial artery Occlusion of the proximal right posterior tibial artery Main continuation trunk fills to the ankle No filling of the right dorsalis pedis artery Patent left superficial femoral artery stent 60% stenosis of the stent in its midportion axial image 336 spine the popliteal portions is poorly visualized There is no opacification of the distal popliteal stent image 440 There is occlusion of the proximal left anterior tibial artery, the mid and distal anterior tibial arteries fill to the ankle including dorsalis pedis There is occlusion of the proximal left posterior tibial and main continuation trunk Extensive edema surrounding the left ankle Cortical bone destruction amputated first metatarsal IMPRESSION: Occlusion proximal right anterior tibial artery Occlusion proximal right posterior tibial artery 60% stenosis left superficial femoral artery stent in its midportion No contrast opacification of the distal left popliteal stent Occlusion proximal left anterior tibial artery, there is reconstitution of the mid and distal anterior tibial artery Occlusion of the proximal left posterior tibial and main continuation artery trunk
[2024-03-01] MEDS: CEFEPIME INJ 2 GM in SODIUM CHLORIDE 0.9% (P) 50 ML IV ×2 (15:04→22:10)
--- NOTE | 2024-03-01 16:28 | PC.CC ---
Pt Ronald Khan is a 73 yr old male admitted to hospitalist services for Osteomyelitis left toe/foot. ASW met with pt to complete initial assessment. At time of encounter pt is noted to be alert and oriented to person, place and situation. Pt expressed understanding admission order. Pt able to confirm demographic information. Pt is from home [address] [place] [address], where he lives with his Cherelle Khan [phone]. Pt identifies his as surrogate DM. At baseline pt reports being independent with ambulation, but states needing support with ADLS. Pt recently D/c from [facility], where pt was placed for wound care following left greater toe amputation. Pt reports he is not diabetic and is not on dialysis. Pt does not require supplemental O2 at home. Pt is followed by Dr. Calle for primary care. At time of D/c pt is open to returning to SNF, stating he does not feel he is able to fully care for himself. Pt request to remain in [facility]. Note pt seen in ED on 02/23/24-sent from [facility] for behavioral issues. Pts tox screen positive for Fentanyl and Methamphetamine.
[2024-03-01 16:34] LABS: Amphetamine/Methamp Scrn,U Negative (Negative); Barbiturate Screen,Urine Negative (Negative); Benzodiazepines Screen,Urine Negative (Negative); Benzoylecgonine Screen, Ur Negative (Negative); Fentanyl Screen,Urine Negative (Negative); Opiate Screen,Urine Negative (Negative); THC Screen,Urine Negative (Negative)
--- NOTE | 2024-03-01 17:05 | ESHP_ITS ---
<Statement entered by Harry Lim MD - 03/01/24 18:28> This patient is a 73-year-old male with past medical history of type 2 diabetes and peripheral arterial disease who had been seen on previous admissions for lower extremity wound and patient had refused BKA in the past. Of note, patient was seen [address] Randhawa, surgeon who performed amputation on patient's first metatarsal left foot. Since then, patient's wound has been getting worse and an he was recently seen by vascular surgeon 5 weeks ago at [facility] who performed percutaneous transluminal angioplasty of the left leg and possibly stent was placed in one of his lower extremity artery. Distal pulses were diminished on left lower extremities with 2+ on right lower extremities. Patient presented with bilateral lower extremity necrotic wound infection and x-ray of foot was significant for osteomyelitis. Surgery, Dr Randhawa has been consulted and he would further evaluate and give his recommendations. We ordered IV antibiotics cefepime and vancomycin and will follow-up with blood cultures, MRSA screen and wound cultures. Will keep the patient n.p.o. after midnight for possible amputation of the toe tomorrow morning. Ordered CTA iliofemoral artery to evaluate for occlusion of peripheral arteries. Will continue with heparin subcut for DVT prophylaxis. Pain management was ordered as needed. I saw and examined the patient, and I agree with current management stated by Dr Bishnu DO, PGY1 Plan of care was discussed with the attending physician and resident physician. Disclaimer: Despite multiple revisions, due to the dictation software being used, the document bellow may not be free of grammatical errors including phonetic/typographic errors. However, this does not deter from our commitment to providing health care in the patient's best interest in mind. Dr. Camila MD, PGY 2 Documentation for date of: 03/01/24 HPI History of Present Illness History of present illness: Patient is a 73-year-old male with past medical history of CVA, CHF stage I diastolic dysfunction, PAD status post FURNACE FIRER, CVI, hypertension, BPH, prostate cancer status post external beam proton radiation, smoking history, hyperlipidemia presents emergency room brought in by for nonhealing left first metatarsal status post amputation. Patient was previously admitted in November 2023 for with similar symptoms. During that hospital course patient was very adamant about going back to SNF without surgical intervention and states that he would refuse any surgical intervention even if it was necessary. Patient was discharged with IV antibiotics and to follow-up up with Dr Randhawa, who amputated patient's first metatarsal of left foot 3 months ago. Since then, patient and state that the wounds have been getting worse. Patient most recently saw Dr. Caldwell vascular surgeon 5 weeks ago at [facility] who performed a percutaneous transluminal angioplasty of the left leg, apparently placed 1 stent after finding greater than 70% occlusion of one of the leg arteries per patient. Since then, patient states that he is wound does not appear to be healing and that his toes are getting darker. Patient states on this admission he is amenable to left leg amputation. On presentation the emergency department vital signs were stable. Blood pressure 149/73, heart rate 85, respiratory rate 21, afebrile, saturating 96% on room air. WBC elevated at 14.9. Hemoglobin 8.2. CMP normal. Blood sugar 94. ESR elevated at 65, CRP 10.3. X-ray of foot shows osteomyelitis of first metatarsal, pronounced soft tissues swelling around dorsum of foot. Venous Doppler of left lower extremity negative for DVT. Given 1 dose of Zosyn and 1 L fluids in ER. Dr Randhawa consulted in the ER and says that he will see patient in morning for possible BKA. This examination in the emergency department shows a chronically ill male. Left leg has multiple gangrenous digits, no active bleeding noted. First metatarsal amputation noted with skin erosion down to bone. No purulent drainage on pressure of any of injury sites. Scabbing, skin breaks, gangrene noted across multiple areas of left lower extremity and metatarsals. DP pulses diminished on left lower extremity, +2 on right lower extremity. Patient will be admitted for left lower extremity osteomyelitis. Of note, Mireya at bedside would like to be informed of any changes to patients status/given updates when deemed appropriate. Contact her at [phone]. Exam Vital Signs Temp Pulse Resp BP Pulse Ox O2 Del Method 98.1 F 83 20 130/66 95 Room Air 03/01/24 14:59 03/01/24 14:59 03/01/24 14:59 03/01/24 14:59 03/01/24 14:59 03/01/24 14:59 Narrative Exam Constitutional: Resting comfortably in bed Eyes: EOMI, no scleral icterus ENMT: Moist Mucous Membranes CVS: RRR, S1 and S2 present, no murmurs, rubs or gallops . RESP: CTAB, no increased work of breathing, no rales, rhonchi or wheezing, on room air GI: Soft, nondistended, nontender MSK: left leg has multiple gangrenous digits, no active bleeding noted. First metatarsal amputation noted with skin erosion down to bone. No purulent drainage on pressure of any of injury sites. Scabbing, Erythema, skin breaks, gangrene noted across multiple areas of left lower extremity and metatarsals. DP pulses diminished on left lower extremity, +2 on right lower extremity. Skin: Warm to touch, Dry. Psych: (AAO) x3 . Appropriate mood and affect. Results: Labs 03/04/24 06:30 03/04/24 06:30 Labs: Short CBC 03/01/24 Range/Units 11:45 WBC 14.9 H D (3.8-10.6) Thou/mm3 Hgb 8.2 L (13.5-16.0) g/dL Hct 26.2 L (41.0-53.0) % Plt Count 360 D (140-440) Thou/mm3 BMP 03/01/24 11:45 Sodium 137 Potassium 3.7 Chloride 103 Carbon Dioxide 23.3 BUN 20 Creatinine 0.8 Glucose 94 Calcium 8.6 Liver Function 03/01/24 Range/Units 11:45 Total Bilirubin 0.6 (0.3-1.2) mg/dL AST 22 (0-34) U/L ALT 24 (10-49) U/L Alkaline Phosphatase 83 (46-116) U/L Albumin 3.5 (3.4-4.8) gm/dL Quality Measures Quality Measures none Advance care planning discussed with:: patient and spouse Medications Home Medications and Allergies Home Medications ?Medication ?Instructions ?Recorded ?Confirmed ?Type tamsulosin 0.4 mg capsule 0.4 mg PO QHS 08/02/21 03/01/24 History apixaban 5 mg tablet (Eliquis) 2.5 mg PO BID 11/10/23 12/13/23 History metoprolol succinate 25 mg 25 mg PO QDAY 11/10/23 03/01/24 History tablet,extended release 24 hr hydrocodone 10 mg-acetaminophen 1 tab PO Q6H PRN Breakthrough Pain 12/13/23 03/01/24 History 325 mg tablet atorvastatin 80 mg tablet 80 mg PO QPM 03/01/24 03/01/24 History lorazepam 1 mg tablet (Ativan) 1 mg PO Q6H PRN Anxiety 03/01/24 03/01/24 History oxycodone 20 mg tablet,extended 20 mg PO BID 03/01/24 03/01/24 History release,12 hr Allergies Allergy/AdvReac Type Severity Reaction Status Date / Time No Known Allergies Allergy Unverified 11/03/23 14:39 Visit Medications Acetaminophen (Acetaminophen 325 Mg Tablet) 650 mg PO Q6H PRN PRN Reason: Fever >101.5 Stop: 03/31/24 14:18 Acetaminophen (Acetaminophen 325 Mg Tablet) 650 mg PO Q6H PRN PRN Reason: PAIN SCALE 1-3 (mild Stop: 03/31/24 14:18 Hydrocodone Bitart/Acetaminophen (Hydrocodone/Apap 5/325 Tablet) 1 tab PO Q6HR PRN PRN Reason: PAIN SCALE 4-6 (Moderate Stop: 03/06/24 14:18 Atorvastatin Calcium (Atorvastatin Calcium 20 Mg Tablet) 80 mg PO QPM [facility] Stop: 03/31/24 20:59 Heparin Sodium (Porcine) (Heparin Sod Inj 5000 Unit/Ml Vial) 5,000 unit SC Q12HR YARI Stop: 03/15/24 20:59 Cefepime HCl 2 gm/ Sodium (Chloride) 50 mls @ 100 mls/hr IV Q12HR YARI Stop: 03/08/24 14:26 Last Admin: 03/01/24 15:04 Dose: 100 mls/hr Vancomycin HCl 1,500 mg/ (Sodium Chloride) 500 mls @ 200 mls/hr IV X1 ONE Stop: 03/01/24 17:14 Morphine Sulfate (Morphine Sulf Inj 10 Mg/Ml Vial) 1 mg IVP Q4HR PRN PRN Reason: severe pain 7-10 Ondansetron HCl (Ondansetron Inj 2 Mg/Ml Inj 2 Ml) 4 mg IV Q6H PRN; Protocol PRN Reason: NAUSEA OR VOMITING Stop: 03/31/24 14:18 Pharmacy Consult (Vancomycin Pharmacy To Dose 1 Each Each) 1 each IV QDAY [facility] Stop: 03/31/24 14:29 Polyethylene Glycol (Polyethylene Glycol 17 Gm Packet) 17 gm PO PRN PRN PRN Reason: CONSTIPATION Stop: 03/31/24 14:51 Sennosides (Senna Tablet) 1 tab PO QDAY PRN; Protocol PRN Reason: CONSTIPATION Stop: 03/31/24 14:49 Tamsulosin HCl (Tamsulosin Hcl 0.4 Mg Capsule) 0.4 mg PO HS YARI Stop: 03/31/24 20:59 Discontinued Medications Hydrocodone Bitart/Acetaminophen (Hydrocodone/Apap 10/325 Tab) 1 tab PO Q4HR PRN PRN Reason: PAIN SCALE 7-10 (Severe Stop: 03/06/24 14:18 Hydrocodone Bitart/Acetaminophen (Hydrocodone/Apap 10/325 Tab) 1 tab PO Q6HR PRN PRN Reason: PAIN SCALE 7-10 (Severe Stop: 03/06/24 14:18 Sodium Chloride (Ns) 1,000 mls @ 999 mls/hr IV .Q1H1M ONE Stop: 03/01/24 12:32 Last Admin: 03/01/24 12:39 Dose: 999 mls/hr Piperacillin Sod/Tazobactam (Sod 3.375 gm/ Sodium Chloride) 50 mls @ 100 mls/hr IV X1 ONE Stop: 03/01/24 13:07 Last Admin: 03/01/24 14:24 Dose: 100 mls/hr Assessment & Plan Plan Patient is a 73-year-old male with past medical history of CVA, CHF stage I diastolic dysfunction, PAD status post FURNACE FIRER, CVI, hypertension, benign prostatic hyperplasia, prostate cancer status post external beam proton radiation, smoking history, hyperlipidemia presented with chief complaint of nonhealing lower left extremity wound. Patient admitted for management of osteomyelitis # Osteomyelitis of first metatarsal, left foot X-ray foot shows osteomyelitis of first metatarsal, peroneal soft tissue swelling around dorsum of foot WBC elevated at 14.9 Patient given 1 dose of Zosyn in the emergency room - Patient will be started on vancomycin and cefepime 03/01- - Pending wound cultures - Pending blood cultures - Pending MRSA screen - Dr Randhawa consulted by ED #Severe peripheral artery disease status post percutaneous transluminal angioplasty #Chronic limb ischemia #Gangrene of left lower extremity digits #History of first metatarsal amputation, left foot Patient has history of peripheral artery disease status post FURNACE FIRER. First metatarsal of left foot amputated by Dr Randhawa 3 months ago. Patient at that time very adamant on not having leg amputated. 5 weeks ago had another FURNACE FIRER performed by Dr. Caldwell. Patient states that his wound and gangrene has been getting worse since then. See physical exam description for more detailed description of wound - Vancomycin and cefepime 03/01- - Pending wound, blood cultures - CTA abdominal aorta with iliofemoral runoff ordered?pending - Dr Randhawa consulted, pending probable below the knee amputation - N.p.o. after midnight - Pain control with [place], morphine - Physical therapy when appropriate - Obtaining records from [facility] regarding findings of FURNACE FIRER done by Dr. Caldwell #Benign prostatic hyperplasia - Restarted patient's tamsulosin 0.4 mg #Hypertension - Will restart patient's metoprolol 25 mg p.o. daily tomorrow #Hyperlipidemia - Restarted patient's home dose of atorvastatin 80 mg Diet: Cardiac Diet, NPO at midnight GI: patient is on a diet DVT:Heparin Persaud: None Lines: Peripheral Dispo: [email or web address] Med Rec: Pending, f/u COVID: Code: Conditional: Patient is accepting of chest compressions, but is DNI- DO NOT INTUBATE Hospitalization for observation, work-up, & management of First metatarsal osteomyelitis, Left. Patient was seen, plan was discussed with attending Dr. Chambers, Bishnu Bahena D.O. PGY1 Anesthesiology Attending Provider Attestation/Addendum I attest that I was physically present for the evaluation, physical examination, lab and imaging review of the patient with the residents. I discussed the case with the residents and agree with the findings and plans of care as documented above. Patient is a 73-year-old male with past medical history of type 2 diabetes and peripheral arterial disease who was seen [address] Randhawa. He also was recently seen by vascular surgeon 5 weeks ago at [facility] who performed percutaneous transluminal angioplasty of the left leg and possibly stent was placed in one of his lower extremity artery. Patient presented to the ED today with worsening wound and discoloration of his toes. At bedside he has gangrene of multiple toes of left foot, exposed first metatarsal. X-ray of foot was significant for osteomyelitis. General surgery has been consulted by ED. We will admit patient for management of Gangrene of left toes, diabetic foot, Osteomyelitis in setting of Severe PAD. Started on IV cefepime and vancomycin, analgesics. We will obtain blood and wound cultures. We will also obtain CTA of the lower extremity vessels to evaluate the stent and extent of PAD. Brandon Chambers MD
[2024-03-01] MEDS: Vancomycin Inj 1,500 MG in SODIUM CHLORIDE 0.9% 500 ML 500 ML 200 MG IV (17:22)
[2024-03-01] MEDS: MORPHINE SULF INJ 10 MG/ML VIAL IVP ×3 (17:23→23:46)
--- NOTE | 2024-03-01 18:10 | PC.NURSE ---
PATIENT HAS BEEN INCONTINENT X 2, PERICARE AND BED LINEN CHANGED. PATIENT CONSTANTLY C/O BEING COLD. WARM BLANKETS HAVE BEEN PROVIDED SEVERAL TIMES. PATIENT INFORMED THAT HIS COLD FEELING IS DUE TO HIS ANEMIA AND IS DIFFICULT TO GET HIM WARM. CRYING OUT DUE TO FEELING COLD INTERMITTENTLY. ASKED THAT HIS BE CALLED TO BRING HIS WARM BLANKETS FROM HOME. CALLED AND INFORMED OF HIS REQUEST, PATIENT TOLD SHE WILL BE BRINGING THE BLANKETS.
[2024-03-01] MEDS: HYDROcodone/APAP 5/325 TABLET 1 TAB PO (21:17)
[2024-03-01] MEDS: TAMSULOSIN HCL 0.4 MG CAPSULE PO (21:18)
[2024-03-01] MEDS: ATORVASTATIN CALCIUM 20 MG TABLET 80 MG PO (21:18)
[2024-03-01] MEDS: HEPARIN SOD INJ 5000 UNIT/ML VIAL SC (22:11)
[2024-03-02] VITALS (9 sets, daily range): BP systolic 109–137; BP diastolic 52–80; PULSE 67–83; RESP 16–20; TEMP 36.3–37.3; O2SAT 93–97; BMI 29.0
[2024-03-02] MEDS: MORPHINE SULF INJ 10 MG/ML VIAL IVP (03:42)
[2024-03-02 06:13] LABS: Basophils % (Auto) 0 % (0-2.5); Eosinophils # (Auto) 0.2 Thou/mm3 (0.0-0.5); Eosinophils % (Auto) 2 % (0-10); Hematocrit 24.3 % (41.0-53.0); Immature Granulocytes % (Auto) 0 % (0-0); Immature Granulocytes Auto 0.03 Thou/mm3 (0.00-0.00); Lymphocytes # (Auto) 0.9 Thou/mm3 (1.0-4.8); Lymphocytes % (Auto) 9 % (10-50); Mean Corpuscular HGB Conc 31.3 g/dl (31.0-37.0); Mean Corpuscular Hemoglobin 22.2 pg (25.0-35.0); Mean Corpuscular Volume 71 fL (80-100); Monocytes % (Auto) 10 % (0-12); Neutrophils # (Auto) 7.6 Thou/mm3 (1.8-7.7); Neutrophils % (Auto) 78 % (37-80); Nucleated Red Blood Cell % 0 /100 WBC (0); Platelet Count 329 Thou/mm3 (140-440); RDW Standard Deviation 45.8 fL (35.1-43.9); Red Blood Count 3.42 Miln/mm3 (4.50-5.90); White Blood Count 9.8 Thou/mm3 (3.8-10.6)
[2024-03-02 06:16] LABS: Hemoglobin 7.6 g/dL (13.5-16.0)
[2024-03-02 06:30] LABS: Alanine Aminotransferase 25 U/L (10-49); Albumin/Globulin Ratio 1.1 (1.2-2.2); Alkaline Phosphatase 73 U/L (46-116); Anion Gap 8 (7-16); Aspartate Amino Transferase 33 U/L (0-34); BUN/Creatinine Ratio 18 Ratio (12-20); Bilirubin,Total 0.5 mg/dL (0.3-1.2); Blood Urea Nitrogen 14 mg/dL (9-23); Calcium 8.2 mg/dL (8.3-10.6); Carbon Dioxide 24.4 mMol/L (20.0-31.0); Chloride 109 mMol/L (98-107); Creatinine (Component) 0.8 mg/dL (0.6-1.3); Estimated Creatinine Clearance 90.9 mL/min (>60); Globulin 2.7 gm/dL (2.3-3.5); Glucose 98 mg/dL (74-106); Magnesium 1.7 mg/dL (1.6-2.6); Osmolality,Calculated 281 (275-295); Phosphorous 2.7 mg/dL (2.4-5.1); Potassium 3.4 mMol/L (3.4-5.1); Sodium 141 mMol/L (136-145); Total Protein 5.7 gm/dL (5.7-8.2); eGFR > 60 See Note
[2024-03-02] MEDS: HEPARIN SOD INJ 5000 UNIT/ML VIAL SC ×2 (08:05→21:16)
[2024-03-02] MEDS: CEFEPIME INJ 2 GM in SODIUM CHLORIDE 0.9% (P) 50 ML IV ×2 (08:05→21:09)
[2024-03-02] MEDS: POTASSIUM CHL 10 mEq IVPB 10 MEQ/100 ML BAG 100 MEQ IV ×4 (09:27→15:10)
--- NOTE | 2024-03-02 09:34 | PC.SS ---
SS follow up note; Pending surgery consult and Wound and blood cultures pending.
--- NOTE | 2024-03-02 10:31 | ESPR_ITS ---
<Statement entered by Harry Lim MD - 03/02/24 15:15> Patient was seen and examined at the bedside. Patient is complaining of pain on his lower extremities due to osteomyelitis. He was complaining of chest pain this morning EKG and troponin I was ordered which was negative. We are currently awaiting MRSA and wound cultures additionally blood cultures. CTA iliofemoral showed occlusion on the left anterior tibial and posterior tibial artery and 60% stenosis of femoral artery. Surgeon, Dr Randhawa recommended that he will likely perform a BKA if Dr. Caldwell does not recommend any other vascular intervention for the patient that patient has severe PAD. Patient wants to save his extremity and will likely await on vascular surgery recommendations. Currently we are continuing with IV antibiotic therapy. Labs were unremarkable except mild hypokalemia which was repleted. All labs and orders were reviewed. I saw and examined the patient, and I agree with current management stated by Dr Bishnu DO, PGY1 Plan of care was discussed with the attending physician and resident physician. Disclaimer: Despite multiple revisions, due to the dictation software being used, the document bellow may not be free of grammatical errors including phonetic/typographic errors. However, this does not deter from our commitment to providing health care in the patient's best interest in mind. Dr. Camila MD, PGY 2 Documentation for date of: 03/02/24 Subjective Subjective Interval history: 03/02: No acute events overnight. Vital signs stable this a.m. WBC decreased to 9.8 from 14.9. Hemoglobin decreased from 8.2-7.6. Trending this afternoon. Patient denies any new symptoms. Dr Randhawa saw patient midday and suggested BKA, however patient continues to be adamant and is asking to get Dr. Caldwell's opinion on what other possible interventions could be done to save his left limb. Phone Dr Randhawa, no response. Will follow-up. Contacted Dr. Caldwell's office and left a message. Per RN, Dr. Randhawa stated that the earliest he could possibly get patient in for BKA is Thursday. Will continue to follow-up with [facility] CTA: occlusion proximal right posterior tibial artery 60% stenosis left superficial femoral artery stent in its midportion No contrast opacification of the distal left popliteal stent Occlusion proximal left anterior tibial artery, there is reconstitution of the mid and distal anterior tibial artery Occlusion of the proximal left posterior tibial and main continuation artery trunk Exam Vital Signs Temp Pulse Resp BP Pulse Ox O2 Del Method 98.2 F 67 18 124/74 93 L Room Air 03/02/24 08:00 03/02/24 10:06 03/02/24 08:00 03/02/24 08:00 03/02/24 08:00 03/02/24 08:00 Narrative Exam Constitutional: Resting comfortably in bed Eyes: EOMI, no scleral icterus ENMT: Moist Mucous Membranes CVS: RRR, S1 and S2 present, no murmurs, rubs or gallops . RESP: CTAB, no increased work of breathing, no rales, rhonchi or wheezing, on room air GI: Soft, nondistended, nontender MSK: left leg has multiple gangrenous digits, no active bleeding noted. First metatarsal amputation noted with skin erosion down to bone. No purulent drainage on pressure of any of injury sites. Scabbing, Erythema, skin breaks, gangrene noted across multiple areas of left lower extremity and metatarsals. DP pulses diminished on left lower extremity, +2 on right lower extremity. Skin: Warm to touch, Dry. Psych: (AAO) x3 . Appropriate mood and affect. Objective Labs 03/04/24 06:30 03/04/24 06:30 Labs: Laboratory Results - last 24 hr 03/01/24 03/01/24 03/02/24 11:45 16:10 05:34 WBC 14.9 H D 9.8 D RBC 3.66 L 3.42 L Hgb 8.2 L 7.6 L Hct 26.2 L 24.3 L MCV 72 L 71 L MCH 22.4 L 22.2 L MCHC 31.3 31.3 RDW Std Deviation 46.3 H 45.8 H Plt Count 360 D 329 D Neut % (Auto) 83 H 78 Lymph % (Auto) 7 L 9 L [place] % (Auto) 9 10 Eos % (Auto) 1 2 Baso % (Auto) 1 0 Neut # (Auto) 12.4 H 7.6 Lymph # (Auto) 1.1 0.9 L [place] # (Auto) 1.3 H 1.0 H Eos # (Auto) 0.1 0.2 Baso # (Auto) 0.1 0.0 Immature Gran # (Auto) 0.07 H 0.03 H Absolute Nucleated RBC 0.00 0.00 Immature Gran % 1 H 0 Nucleated RBC % 0 0 ESR 65 H PT 13.5 H INR 1.3 APTT 32.1 Sodium 137 141 Potassium 3.7 3.4 Chloride 103 109 H Carbon Dioxide 23.3 24.4 Anion Gap 11 8 BUN 20 14 Creatinine 0.8 0.8 Estim Creat Clear Calc 89.4 90.9 eGFR > 60 > 60 BUN/Creatinine Ratio 25 H 18 Glucose 94 98 Calculated Osmolality 276 281 Calcium 8.6 8.2 L Corrected Calcium 9.0 9.0 Phosphorus 2.7 Magnesium 1.7 Total Bilirubin 0.6 0.5 AST 22 33 ALT 24 25 Alkaline Phosphatase 83 73 C-Reactive Prot, Quant 10.3 H Total Protein 6.3 5.7 Albumin 3.5 3.0 L D Globulin 2.8 2.7 Albumin/Globulin Ratio 1.3 1.1 L Urine Opiates Screen Negative Urine Fentanyl Screen Negative Ur Barbiturates Screen Negative U Amphetamin/Meth Scrn Negative U Benzodiazepines Scrn Negative U Cocaine Metab Screen Negative U Marijuana (THC) Screen Negative Quality Measures Quality Measures none Advance care planning discussed with:: patient Assessment & Plan Assessment Current Active Medications: Generic Name Dose Route Start Last Admin Trade Name Freq PRN Reason Stop Dose Admin Acetaminophen 650 mg 03/01/24 14:19 Acetaminophen 325 Mg Tablet PO 03/31/24 14:18 Q6H PRN Fever >101.5 Acetaminophen 650 mg 03/01/24 14:19 Acetaminophen 325 Mg Tablet PO 03/31/24 14:18 Q6H PRN PAIN SCALE 1-3 (mild Hydrocodone Bitart/Acetaminophen 1 tab 03/01/24 14:19 03/01/24 21:17 Hydrocodone/Apap 5/325 Tablet PO 03/06/24 14:18 1 tab Q6HR PRN Administration PAIN SCALE 4-6 (Moderate Atorvastatin Calcium 80 mg 03/01/24 21:00 03/01/24 21:18 Atorvastatin Calcium 20 Mg Tablet PO 03/31/24 20:59 80 mg QPM YARI Administration Heparin Sodium (Porcine) 5,000 unit 03/01/24 21:00 03/02/24 08:05 Heparin Sod Inj 5000 Unit/Ml Vial SC 03/15/24 20:59 5,000 unit Q12HR YARI Administration Cefepime HCl 2 gm/ Sodium 50 mls @ 100 mls/hr 03/01/24 14:27 03/02/24 08:05 Chloride IV 03/08/24 14:26 100 mls/hr Q12HR YARI Administration Potassium Chloride 10 meq in 100 mls @ 100 mls/hr 03/02/24 08:03 03/02/24 09:27 Kcl Ivpb IV 03/02/24 12:02 100 mls/hr Q1H YARI Administration Vancomycin/Sodium Chloride 750 mg in 150 mls @ 120 mls/hr 03/02/24 10:30 Vancomycin/Ns 750 Mg Ivpb IV 03/09/24 10:29 BID@1000,2200 YARI Protocol Ondansetron HCl 4 mg 03/01/24 14:19 Ondansetron Inj 2 Mg/Ml Inj 2 Ml IV 03/31/24 14:18 Q6H PRN NAUSEA OR VOMITING Protocol Pharmacy Consult 1 each 03/02/24 06:31 Vancomycin Pharmacy To Dose 1 Each Each IV 03/31/24 14:29 QDAY PRN PROTOCOL Polyethylene Glycol 17 gm 03/01/24 14:52 Polyethylene Glycol 17 Gm Packet PO 03/31/24 14:51 PRN PRN CONSTIPATION Sennosides 1 tab 03/01/24 14:50 Senna Tablet PO 03/31/24 14:49 QDAY PRN CONSTIPATION Protocol Tamsulosin HCl 0.4 mg 03/01/24 21:00 03/01/24 21:18 Tamsulosin Hcl 0.4 Mg Capsule PO 03/31/24 20:59 0.4 mg HS YARI Administration Plan Patient is a 73-year-old male with past medical history of CVA, CHF stage I diastolic dysfunction, PAD status post [employer]NEY [employer]ER, CVI, hypertension, benign prostatic hyperplasia, prostate cancer status post external beam proton radiation, smoking history, hyperlipidemia presented with chief complaint of nonhealing lower left extremity wound. Patient admitted for management of osteomyelitis # Osteomyelitis of first metatarsal, left foot X-ray foot shows osteomyelitis of first metatarsal, peroneal soft tissue swelling around dorsum of foot WBC elevated at 14.9 Patient given 1 dose of Zosyn in the emergency room Dr Randhawa suggest BKA, however patient is persistent about contacting Dr. Caldwell for his opinion. Wound Gram stain negative-pending final culture - Patient will be started on vancomycin and cefepime 03/01- - Pending wound cultures - Pending blood cultures - Pending MRSA screen #Severe peripheral artery disease status post percutaneous transluminal angioplasty #Chronic limb ischemia #Gangrene of left lower extremity digits #History of first metatarsal amputation, left foot Patient has history of peripheral artery disease status post [employer]NEY [employer]ER. First metatarsal of left foot amputated by Dr Randhawa 3 months ago. Patient at that time very adamant on not having leg amputated. 5 weeks ago had another [employer] performed by Dr. Caldwell. Patient states that his wound and gangrene has been getting worse since then. See physical exam description for more detailed description of wound CTA: occlusion proximal right posterior tibial artery 60% stenosis left superficial femoral artery stent in its midportion No contrast opacification of the distal left popliteal stent Occlusion proximal left anterior tibial artery, there is reconstitution of the mid and distal anterior tibial artery Occlusion of the proximal left posterior tibial and main continuation artery trunk Dr Randhawa suggest BKA, however patient is persistent about contacting Dr. Caldwell for his opinion. - Vancomycin and cefepime 03/01- - Pending wound, blood cultures - Dr Randhawa consulted, following -Will attempt to reach Dr. Caldwell for recommendations - Pain control with [place], morphine - Physical therapy when appropriate - Obtaining records from [facility] regarding findings of ATT[employer]NEY [employer]ER done by Dr. Caldwell #Benign prostatic hyperplasia - Restarted patient's tamsulosin 0.4 mg #Hypertension BPs soft today, holding home dose - Will restart patients home metoprolol 25 PO Qday after surgery #Hyperlipidemia - Restarted patient's home dose of atorvastatin 80 mg Diet: Cardiac Diet, NPO at midnight GI: patient is on a diet DVT:Heparin Persaud: None Lines: Peripheral Dispo: Med Tele Med Rec: Pending, f/u COVID: Code: Conditional: Patient is accepting of chest compressions, but is DNI- DO NOT INTUBATE Hospitalization for observation, work-up, & management of First metatarsal osteomyelitis, Left. Patient was seen, plan was discussed with attending Dr. Chambers and senior residents on service Bishnu Bahena D.O. PGY1 Anesthesiology Attending Provider Attestation/Addendum I attest that I was physically present for the evaluation, physical examination, lab and imaging review of the patient with the residents. I discussed the case with the residents and agree with the findings and plans of care as documented above. At bedside, patient appears comfortable. Continues to complain of pain but controlled with analgesics. Also complained of chest pain, EKG and Troponin level were obtained which were unremarkable. CTA iliofemoral showed occlusion on the left anterior tibial and posterior tibial artery and 60% stenosis of femoral artery. Discussed with general surgery, recommended having discussion with patient's vascular surgeon, if he does not recommend vascular procedure will proceed with BKA. We will reach out to Dr. Caldwell. Continues to be on IV antibiotics. Awaiting culture results. Brandon Chambers MD
--- NOTE | 2024-03-02 11:24 | PC.NURSE ---
notified Dr. Combs that pt is complaining of chest pain, he says he'll come see him
--- NOTE | 2024-03-02 11:29 | EKG_ITS ---
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 : 1950 Requested By: William Combs Order Number: [id number] Reading MD: William Combs Measurements Intervals [place] Rate: 73 P: [place]: QRS: -55 QRSD: 112 T: 12 QT: 407 QTc: 449 Interpretive Statements ATRIAL FIBRILLATION INCOMPLETE RIGHT BUNDLE BRANCH BLOCK LEFT ANTERIOR FASCICULAR BLOCK ST DEVIATION AND MODERATE T-WAVE ABNORMALITY, CONSIDER INFERIOR ISCHEMIA Compared to ECG 07/04/2023 16:38:47 Incomplete right bundle-branch block now present T-wave abnormality now present Possible ischemia now present Sinus rhythm no longer present First degree AV block no longer present Myocardial infarct finding no longer present /store/S0/[id number].pdf
[2024-03-02] MEDS: VANCOMYCIN/NS 750 MG IVPB 750 MG/150 ML BAG 120 MG IV ×2 (11:34→22:14)
--- NOTE | 2024-03-02 11:47 | PC.PT ---
Patient is pending surgical recommendations. Will hold PT eval until surgical/ortho recommendations are given.
--- NOTE | 2024-03-02 12:01 | PD.SURCONS ---
HPI Consult details Consult date: 03/02/24 Reason for consultation narrative: PAD with gangrene of the left lower extremity History of present illness: 73-year-old male with past medical history of CVA, CHF stage I diastolic dysfunction, PAD status post peripheral angiogram with angioplasty and stent placement of both lower extremities, essential hypertension, BPH, prostate cancer s/p external beam radiation, >[id number] smoking history - quit 7 years ago, and hyperlipidemia was admitted with gangrene of left first toe about 3 months ago. During that hospitalization I was consulted and I recommended below the knee amputation as patient had significant PAD. However, patient adamantly refused below the knee amputation and wanted to salvage his foot and wanted to proceed with left first toe amputation. He underwent left first toe amputation. His wound was initially healing however the amputation site dehisced and became gangrenous. He has had gangrene of adjacent toes. He recently underwent peripheral angiogram with angioplasty by Dr. Caldwell. Review of Systems Constitutional Constitutional: Denies chills and Denies fever(s) Cardiovascular Cardiovascular: Denies chest pain Respiratory Respiratory: Denies cough Gastrointestinal Gastrointestinal: Denies abdominal pain, Denies nausea and Denies vomiting Hematologic/Lymphatic Hematologic/Lymphatic: Denies easy bleeding and Reports easy bruising Past Medical History Surgical History OTHER SURGICAL HX: Bilateral total knee replacement, left first toe amputation Social History SMOKING STATUS: Former smoker SUBSTANCE USE: does not use ALCOHOL: Former Meds Home Medications and Allergies Home Medications ?Medication ?Instructions ?Recorded ?Confirmed ?Type tamsulosin 0.4 mg capsule 0.4 mg PO QHS 08/02/21 03/01/24 History apixaban 5 mg tablet (Eliquis) 2.5 mg PO BID 11/10/23 12/13/23 History metoprolol succinate 25 mg 25 mg PO QDAY 11/10/23 03/01/24 History tablet,extended release 24 hr hydrocodone 10 mg-acetaminophen 1 tab PO Q6H PRN Breakthrough Pain 12/13/23 03/01/24 History 325 mg tablet atorvastatin 80 mg tablet 80 mg PO QPM 03/01/24 03/01/24 History lorazepam 1 mg tablet (Ativan) 1 mg PO Q6H PRN Anxiety 03/01/24 03/01/24 History oxycodone 20 mg tablet,extended 20 mg PO BID 03/01/24 03/01/24 History release,12 hr Allergies Allergy/AdvReac Type Severity Reaction Status Date / Time No Known Allergies Allergy Unverified 11/03/23 14:39 Exam Vital Signs Temp Pulse Resp BP Pulse Ox O2 Del Method 98.2 F 67 18 124/74 93 L Room Air 03/02/24 08:00 03/02/24 10:06 03/02/24 08:00 03/02/24 08:00 03/02/24 08:00 03/02/24 08:00 Constitutional Constitutional: no acute distress Routine Extremities Exam Comments: He has gangrene of left first toe amputation site with gangrene of adjacent toes. He has necrotic and ischemic changes of distal left leg. He does not have palpable PT or DP pulses Results Results: Laboratory Laboratory results: results reviewed Results: Imaging Imaging narrative: CT angiogram with bilateral lower extremity runoffs images reviewed, radiologist interpretation noted Assessment & Plan Problem List (1) Atherosclerosis of left lower extremity with gangrene: Status: Acute Plan I had a lengthy discussion with the patient and his . My recommendation is to do below the knee amputation. If the stump does not heal, becomes infected and or necrotic he will require [id number] amputation. Patient and stated that he recently had some intervention at [facility] by Dr. Caldwell, they wish to discuss with him to see if there are other options to salvage his foot. (1) Atherosclerosis of left lower extremity with gangrene Qualifiers: Peripheral atherosclerosis artery type: pilot [place] artery Qualified Code(s): I70.262 - Atherosclerosis of [place] arteries of extremities with gangrene, left leg
[2024-03-02 12:44] LABS: Troponin I < 0.020 ng/mL (0.0-0.045)
--- NOTE | 2024-03-02 14:03 | EKG_ITS ---
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 : 1950 Requested By: Lai Bahena Order Number: [id number] Reading MD: Lai Bahena Measurements Intervals [place] Rate: 71 P: -77 [place]: 222 QRS: 37 QRSD: 118 T: 29 QT: 422 QTc: 461 Interpretive Statements SINUS RHYTHM WITH FIRST DEGREE AV BLOCK POSSIBLE ANTERIOR MYOCARDIAL INFARCTION , OF INDETERMINATE AGE PROBABLE INFERIOR MYOCARDIAL INFARCTION , PROBABLY OLD Compared to ECG 03/02/2024 12:16:38 First degree AV block now present Myocardial infarct finding now present Atrial fibrillation no longer present Incomplete right bundle-branch block no longer present Left anterior fascicular block no longer present T-wave abnormality no longer present Possible ischemia no longer present /store/S0/[id number]/ecg/[id number].pdf
[2024-03-02 15:28] LABS: Basophils # (Auto) 0.1 Thou/mm3 (0.0-0.2); Basophils % (Auto) 1 % (0-2.5); Eosinophils # (Auto) 0.2 Thou/mm3 (0.0-0.5); Eosinophils % (Auto) 2 % (0-10); Hematocrit 25.6 % (41.0-53.0); Immature Granulocytes % (Auto) 1 % (0-0); Immature Granulocytes Auto 0.05 Thou/mm3 (0.00-0.00); Lymphocytes # (Auto) 0.7 Thou/mm3 (1.0-4.8); Lymphocytes % (Auto) 8 % (10-50); Mean Corpuscular HGB Conc 30.9 g/dl (31.0-37.0); Mean Corpuscular Hemoglobin 21.8 pg (25.0-35.0); Mean Corpuscular Volume 71 fL (80-100); Monocytes # (Auto) 0.7 Thou/mm3 (0.0-0.8); Monocytes % (Auto) 7 % (0-12); Neutrophils # (Auto) 7.7 Thou/mm3 (1.8-7.7); Neutrophils % (Auto) 82 % (37-80); Nucleated Red Blood Cell % 0 /100 WBC (0); Platelet Count 342 Thou/mm3 (140-440); RDW Standard Deviation 45.7 fL (35.1-43.9); Red Blood Count 3.63 Miln/mm3 (4.50-5.90); White Blood Count 9.3 Thou/mm3 (3.8-10.6)
[2024-03-02 15:30] LABS: Hemoglobin 7.9 g/dL (13.5-16.0)
[2024-03-02] MEDS: HYDROcodone/APAP 5/325 TABLET 1 TAB PO ×2 (16:10→22:53)
[2024-03-02] MEDS: ATORVASTATIN CALCIUM 20 MG TABLET 80 MG PO (21:16)
[2024-03-02] MEDS: TAMSULOSIN HCL 0.4 MG CAPSULE PO (21:16)
[2024-03-03] VITALS (7 sets, daily range): BP systolic 91–120; BP diastolic 49–61; PULSE 61–93; RESP 15–21; TEMP 36.1–37.2; O2SAT 92–98; BMI 27.6
[2024-03-03] MEDS: MORPHINE SULF INJ 10 MG/ML VIAL 2 MG IVP ×2 (00:14→15:42)
--- NOTE | 2024-03-03 02:29 | PC.NURSE ---
At bedside with Patient, Patient is c/o of unrelieved 10/10 pain in Left foot, Dr. Walter notified, X1 Order of 5-325mg [place] was put in, notified Patient of update to Patient's MAR, Patient verbally stated frustration. Patient wants an order for oxycotin that he takes at home, Patient was educated of patient's hospital pain management. Patient stated If I had a gun, I would blow my brain out, I swear to god. This is wrong, They have pain medication to take care of my pain. This is inhumane. Patient care continued.
[2024-03-03] MEDS: HYDROcodone/APAP 5/325 TABLET 1 TAB PO ×3 (02:44→16:41)
[2024-03-03 06:01] LABS: Basophils % (Auto) 0 % (0-2.5); Eosinophils # (Auto) 0.2 Thou/mm3 (0.0-0.5); Eosinophils % (Auto) 2 % (0-10); Hematocrit 23.9 % (41.0-53.0); Immature Granulocytes % (Auto) 0 % (0-0); Immature Granulocytes Auto 0.04 Thou/mm3 (0.00-0.00); Lymphocytes % (Auto) 10 % (10-50); Mean Corpuscular HGB Conc 31.4 g/dl (31.0-37.0); Mean Corpuscular Hemoglobin 22.1 pg (25.0-35.0); Mean Corpuscular Volume 70 fL (80-100); Monocytes % (Auto) 11 % (0-12); Neutrophils # (Auto) 7.2 Thou/mm3 (1.8-7.7); Neutrophils % (Auto) 76 % (37-80); Nucleated Red Blood Cell % 0 /100 WBC (0); Platelet Count 265 Thou/mm3 (140-440); RDW Standard Deviation 45.5 fL (35.1-43.9); White Blood Count 9.5 Thou/mm3 (3.8-10.6)
[2024-03-03 06:20] LABS: Hemoglobin 7.5 g/dL (13.5-16.0)
[2024-03-03 06:22] LABS: INR 1.2 (0.9-1.3); Partial Thromboplastin Time 25.4 Seconds (22.0-36.0)
[2024-03-03 06:25] LABS: Alanine Aminotransferase 29 U/L (10-49); Albumin, Serum 3.1 gm/dL (3.4-4.8); Albumin/Globulin Ratio 1.2 (1.2-2.2); Alkaline Phosphatase 72 U/L (46-116); Anion Gap 8 (7-16); Aspartate Amino Transferase 33 U/L (0-34); BUN/Creatinine Ratio 16 Ratio (12-20); Bilirubin,Total 0.3 mg/dL (0.3-1.2); Blood Urea Nitrogen 11 mg/dL (9-23); Calcium 8.1 mg/dL (8.3-10.6); Calcium (Corrected) 8.8 mg/dL (8.5-10.1); Carbon Dioxide 23.2 mMol/L (20.0-31.0); Chloride 106 mMol/L (98-107); Creatinine (Component) 0.7 mg/dL (0.6-1.3); Globulin 2.6 gm/dL (2.3-3.5); Glucose 116 mg/dL (74-106); Magnesium 1.7 mg/dL (1.6-2.6); Osmolality,Calculated 274 (275-295); Phosphorous 2.3 mg/dL (2.4-5.1); Potassium 3.7 mMol/L (3.4-5.1); Sodium 137 mMol/L (136-145); Total Protein 5.7 gm/dL (5.7-8.2); eGFR > 60 See Note
[2024-03-03] MEDS: CEFEPIME INJ 2 GM in SODIUM CHLORIDE 0.9% (P) 50 ML IV (08:30)
[2024-03-03] MEDS: HEPARIN SOD INJ 5000 UNIT/ML VIAL SC (08:30)
--- NOTE | 2024-03-03 09:06 | PC.SS ---
Addendum entered by KIM Govea 03/03/24 16:17: Spoke with Cassidy at [facility], she informs they will check patient's medicare days, if available. Addendum entered by KIM Govea 03/03/24 11:54: Attempted contact with Esha at [facility], left voicemail. Sent message via [employer]. Addendum entered by KIM Govea 03/03/24 09:17: PASRR completed. LV1. Addendum entered by KIM Govea 03/03/24 09:15: SNF inquiry sent via [employer]. Original Note: SS follow up: spoke with patient's , Cherelle regarding the patient's discharge plan. Cherelle is requesting SNF. Preferred is [facility].
[2024-03-03] MEDS: Magnesium Sulfate 4 GM Ivpb 4 GM/50 ML BAG IV (09:50)
[2024-03-03] MEDS: NAPH,KPH MBDB 1 PACKET (1.5 GM) 2 PACKET PO (09:50)
[2024-03-03] MEDS: VANCOMYCIN/WATER 1250 MG IVPB 250 ML 120 MG IV (10:50)
--- NOTE | 2024-03-03 13:55 | PD.SURPROG ---
Documentation for date of: 03/03/24 Subjective Subjective Narrative: Patient is seen and examined. He continues to have pain on his left lower extremity Exam Vital Signs Temp Pulse Resp BP Pulse Ox O2 Del Method 97.0 F 63 15 111/58 L 96 Room Air 03/03/24 12:00 03/03/24 12:00 03/03/24 12:00 03/03/24 12:00 03/03/24 12:00 03/03/24 12:00 Constitutional Constitutional: no acute distress Routine Extremities Exam Comments: Gangrene left lower extremity Assessment & Plan Plan Patient has decided to proceed with left below the knee amputation. Risks include but not limited to infection, bleeding, injury to surround neurovascular structures, possible stump infection and or necrosis need for further operation and or procedures discussed with the patient. Benefits alternatives explained to him, all his questions answered, he agreed and consented to proceed with the operation.
--- NOTE | 2024-03-03 16:35 | ESPR_ITS ---
<Statement entered by Harry Lim MD - 03/03/24 21:29> Patient was seen and examined at the bedside. Patient reported to have pain in his lower extremity. Dr. Caldwell, vascular surgery recommended that patient should be getting BKA for his lower extremity. Patient is currently n.p.o. after midnight and surgeon Dr. Randhawa will perform below-knee amputation tomorrow morning. Will continue with cefepime and vancomycin and optimize pain medications. 2 units of PRBCs were prepared in anticipation to surgery. Blood pressure was soft as patient receive multiple doses of pain medications overnight we will closely monitor. Electrolytes were repleted. Hemoglobin was 7.5. Blood cultures are growing negative for 24 hours. Will follow-up with those. Patient blood pressure was soft today recent recorded as 91/58 therefore 500 cc bolus of fluids were ordered, morphine was reduced to 1 mg every 6 hourly and [place] was increased to 7.5/325 mg. Holding tamsulosin due to soft blood pressure and heparin subcut as patient's hemoglobin and platelets dropped as compared to yesterday. Will follow on H&H at midnight. All labs and orders were reviewed. I saw and examined the patient, and I agree with current management stated by Dr Bishnu LOPEZ ,PGY1. Plan of care was discussed with the attending physician and resident physician. Disclaimer: Despite multiple revisions, due to the dictation software being used, the document bellow may not be free of grammatical errors including phonetic/typographic errors. However, this does not deter from our commitment to providing health care in the patient's best interest in mind. Dr. Carina MD, PGY 2 Documentation for date of: 03/03/24 Subjective Subjective Interval history: 03/02: No acute events overnight. Vital signs stable this a.m. WBC decreased to 9.8 from 14.9. Hemoglobin decreased from 8.2-7.6. Trending this afternoon. Patient denies any new symptoms. Dr Randhawa saw patient midday and suggested BKA, however patient continues to be adamant and is asking to get Dr. Caldwell's opinion on what other possible interventions could be done to save his left limb. Phone Dr Randhawa, no response. Will follow-up. Contacted Dr. Caldwell's office and left a message. Per RN, Dr. Randhawa stated that the earliest he could possibly get patient in for BKA is Thursday. Will continue to follow-up with [facility] CTA: occlusion proximal right posterior tibial artery 60% stenosis left superficial femoral artery stent in its midportion No contrast opacification of the distal left popliteal stent Occlusion proximal left anterior tibial artery, there is reconstitution of the mid and distal anterior tibial artery Occlusion of the proximal left posterior tibial and main continuation artery trunk 03/03: No acute events overnight. CBC appears stable. Hemoglobin stable at 7.5. Electrolytes normal. Patient was seen by Dr. Caldwell this a.m., and is agreeable to below the knee amputation. Dr Randhawa saw patient as well, and plan is for below-knee amputation tomorrow 03/04. Patient understands. Type and screen ordered, 2 RBCs on hold in case needed during surgery tomorrow. N.p.o. at midnight. Exam Vital Signs Temp Pulse Resp BP Pulse Ox O2 Del Method 97.0 F 67 15 111/58 L 96 Room Air 03/03/24 12:00 03/03/24 16:00 03/03/24 12:00 03/03/24 12:00 03/03/24 12:00 03/03/24 12:00 Narrative Exam Constitutional: Resting comfortably in bed Eyes: EOMI, no scleral icterus ENMT: Moist Mucous Membranes CVS: RRR, S1 and S2 present, no murmurs, rubs or gallops . RESP: CTAB, no increased work of breathing, no rales, rhonchi or wheezing, on room air GI: Soft, nondistended, nontender MSK: left leg has multiple gangrenous digits, no active bleeding noted. First metatarsal amputation noted with skin erosion down to bone. No purulent drainage on pressure of any of injury sites. Scabbing, Erythema, skin breaks, gangrene noted across multiple areas of left lower extremity and metatarsals. DP pulses diminished on left lower extremity, +2 on right lower extremity. Skin: Warm to touch, Dry. Psych: (AAO) x3 . Appropriate mood and affect. Objective Labs 03/03/24 04:10 03/03/24 04:10 Labs: Laboratory Results - last 24 hr 03/03/24 03/03/24 04:10 08:55 WBC 9.5 RBC 3.40 L Hgb 7.5 L Hct 23.9 L MCV 70 L MCH 22.1 L MCHC 31.4 RDW Std Deviation 45.5 H Plt Count 265 D Neut % (Auto) 76 Lymph % (Auto) 10 [place] % (Auto) 11 Eos % (Auto) 2 Baso % (Auto) 0 Neut # (Auto) 7.2 Lymph # (Auto) 1.0 [place] # (Auto) 1.0 H Eos # (Auto) 0.2 Baso # (Auto) 0.0 Immature Gran # (Auto) 0.04 H Absolute Nucleated RBC 0.00 Immature Gran % 0 Nucleated RBC % 0 PT 13.0 H INR 1.2 APTT 25.4 Sodium 137 Potassium 3.7 Chloride 106 Carbon Dioxide 23.2 Anion Gap 8 BUN 11 Creatinine 0.7 Estim Creat Clear Calc 94.0 eGFR > 60 BUN/Creatinine Ratio 16 Glucose 116 H Calculated Osmolality 274 L Calcium 8.1 L Corrected Calcium 8.8 Phosphorus 2.3 L Magnesium 1.7 Total Bilirubin 0.3 AST 33 ALT 29 Alkaline Phosphatase 72 Total Protein 5.7 Albumin 3.1 L Globulin 2.6 Albumin/Globulin Ratio 1.2 Vancomycin Trough 10.0 Quality Measures Quality Measures none Advance care planning discussed with:: patient and spouse Assessment & Plan Assessment Current Active Medications: Generic Name Dose Route Start Last Admin Trade Name Freq PRN Reason Stop Dose Admin Acetaminophen 650 mg 03/01/24 14:19 Acetaminophen 325 Mg Tablet PO 03/31/24 14:18 Q6H PRN Fever >101.5 Acetaminophen 650 mg 03/01/24 14:19 Acetaminophen 325 Mg Tablet PO 03/31/24 14:18 Q6H PRN PAIN SCALE 1-3 (mild Hydrocodone Bitart/Acetaminophen 1 tab 03/01/24 14:19 03/03/24 08:30 Hydrocodone/Apap 5/325 Tablet PO 03/06/24 14:18 1 tab Q6HR PRN Administration PAIN SCALE 4-6 (Moderate Ascorbic Acid 500 mg 03/03/24 21:00 Ascorbic Acid 250 Mg Tablet PO 04/02/24 20:59 BID YARI Atorvastatin Calcium 80 mg 03/01/24 21:00 03/02/24 21:16 Atorvastatin Calcium 20 Mg Tablet PO 03/31/24 20:59 80 mg QPM YARI Administration Heparin Sodium (Porcine) 5,000 unit 03/01/24 21:00 03/03/24 08:30 Heparin Sod Inj 5000 Unit/Ml Vial SC 03/15/24 20:59 5,000 unit Q12HR YARI Administration Cefepime HCl 2 gm/ Sodium 50 mls @ 100 mls/hr 03/03/24 21:00 Chloride IV 03/08/24 14:26 Q12HR YARI Vancomycin HCl 250 mls @ 120 mls/hr 03/03/24 10:00 03/03/24 10:50 Vancomycin/Water 1250 Mg Ivpb IV 03/10/24 09:59 120 mls/hr Q12H YARI Administration Protocol Morphine Sulfate 2 mg 03/03/24 14:17 03/03/24 15:42 Morphine Sulf Inj 10 Mg/Ml Vial IVP 03/08/24 14:16 2 mg Q6HR PRN Administration BREAKTHROUGH PAIN (SEVERE) Ondansetron HCl 4 mg 03/01/24 14:19 Ondansetron Inj 2 Mg/Ml Inj 2 Ml IV 03/31/24 14:18 Q6H PRN NAUSEA OR VOMITING Protocol Pharmacy Consult 1 each 03/02/24 06:31 Vancomycin Pharmacy To Dose 1 Each Each IV 03/31/24 14:29 QDAY PRN PROTOCOL Polyethylene Glycol 17 gm 03/03/24 10:08 Polyethylene Glycol 17 Gm Packet PO 03/31/24 14:51 Q6HR PRN CONSTIPATION Protocol Sennosides 1 tab 03/01/24 14:50 Senna Tablet PO 03/31/24 14:49 QDAY PRN CONSTIPATION Protocol Tamsulosin HCl 0.4 mg 03/01/24 21:00 03/02/24 21:16 Tamsulosin Hcl 0.4 Mg Capsule PO 03/31/24 20:59 0.4 mg HS YARI Administration Zinc Sulfate 220 mg 03/04/24 09:00 Zinc Sulfate 220 Mg Capsule PO 04/03/24 08:59 QDAY YARI Plan Patient is a 73-year-old male with past medical history of CVA, CHF stage I diastolic dysfunction, 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 Patient admitted for management of osteomyelitis # Osteomyelitis of first metatarsal, left foot X-ray foot shows osteomyelitis of first metatarsal, peroneal soft tissue swelling around dorsum of foot WBC elevated at 14.9 Patient given 1 dose of Zosyn in the emergency room Dr Randhawa suggest BKA, however patient is persistent about contacting Dr. Caldwell for his opinion. 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 First metatarsal of left foot amputated by Dr Randhawa 3 months ago. Patient at that time very adamant on not having leg amputated. 5 weeks ago had another [employer]GER performed by Dr. Caldwell. Patient states that his wound and gangrene has been getting worse since then. See physical exam description for more detailed description of wound CTA: occlusion proximal right posterior tibial artery 60% stenosis left superficial femoral artery stent in its midportion No contrast opacification of the distal left popliteal stent Occlusion proximal left anterior tibial artery, there is reconstitution of the mid and distal anterior tibial artery Occlusion of the proximal left posterior tibial and main continuation artery trunk Patient is agreeable to BKA, after consulting with Dr. Randhawa and Dr. Caldwell - Vancomycin and cefepime 03/01- - Patient to proceed with BKA tomorrow morning with Dr. Recinos - Pain control with [place], morphine - Physical therapy when appropriate #Benign prostatic hyperplasia - Restarted patient's tamsulosin 0.4 mg #Hypertension BPs soft today, holding home dose - Will restart patients home metoprolol 25 PO Qday after surgery #Hyperlipidemia - Restarted patient's home dose of atorvastatin 80 mg Diet: Cardiac Diet, NPO at midnight GI: patient is on a diet DVT:Heparin Persaud: None Lines: Peripheral Dispo: Med Tele Med Rec: Pending, f/u COVID: Code: Conditional: Patient is accepting of chest compressions, but is DNI- DO NOT INTUBATE Hospitalization for observation, work-up, & management of First metatarsal osteomyelitis, Left. Patient was seen, plan was discussed with attending Dr. Leal and senior residents on service Bishnu Bahena D.O. PGY1 Anesthesiology Attending Provider Attestation/Addendum I have discussed and was present for the essential components of the history, physical examination, diagnosis, and treatment plan with the resident. I agree with the patient's care as documented by the resident and amended herein by me. Juan José Leal DO. Patient seen and evaluated this AM. BKA scheduled with general surgery tomorrow, 01/02. Will focus on pain management and continue broad-spectrum antibiotics with vancomycin and cefepime at this time. Will follow blood cultures and continue to monitor closely while he is here. Although this document has been carefully reviewed, there may still be some phonetic and other typographical errors. These errors are purely grammatical due to imperfections in the software program and should not be construed in any way to compromise the substance of the patient's medical care during this visit.
[2024-03-03] MEDS: SODIUM CHLORIDE 0.9% 500 ML 500 ML 999 ML IV (21:44)
[2024-03-03] MEDS: ASCORBIC ACID 250 MG TABLET 500 MG PO (21:45)
[2024-03-03] MEDS: MORPHINE SULF INJ 10 MG/ML VIAL IVP (21:45)
[2024-03-03] MEDS: ATORVASTATIN CALCIUM 20 MG TABLET 80 MG PO (21:46)
[2024-03-03] MEDS: CEFEPIME INJ 2 GM in SODIUM CHLORIDE 0.9% 50 ML IV (21:46)
[2024-03-04] VITALS (21 sets, daily range): BP systolic 98–121; BP diastolic 60–80; PULSE 60–87; RESP 14–96; TEMP 36.1–37.1; O2SAT 92–99; BMI 27.5
[2024-03-04] MEDS: HYDROcodone/APAP 7.5/325 TABLET 1 TAB PO ×2 (00:11→06:54)
[2024-03-04 01:13] LABS: Hematocrit 22.2 % (41.0-53.0)
[2024-03-04] MEDS: MORPHINE SULF INJ 10 MG/ML VIAL IVP (05:31)
[2024-03-04 06:59] LABS: Basophils # (Auto) 0.1 Thou/mm3 (0.0-0.2); Basophils % (Auto) 1 % (0-2.5); Eosinophils # (Auto) 0.2 Thou/mm3 (0.0-0.5); Eosinophils % (Auto) 3 % (0-10); Hematocrit 23.7 % (41.0-53.0); Immature Granulocytes % (Auto) 0 % (0-0); Immature Granulocytes Auto 0.03 Thou/mm3 (0.00-0.00); Lymphocytes # (Auto) 0.8 Thou/mm3 (1.0-4.8); Lymphocytes % (Auto) 9 % (10-50); Mean Corpuscular HGB Conc 32.1 g/dl (31.0-37.0); Mean Corpuscular Hemoglobin 22.6 pg (25.0-35.0); Mean Corpuscular Volume 71 fL (80-100); Monocytes # (Auto) 0.9 Thou/mm3 (0.0-0.8); Monocytes % (Auto) 10 % (0-12); Neutrophils # (Auto) 6.6 Thou/mm3 (1.8-7.7); Neutrophils % (Auto) 77 % (37-80); Nucleated Red Blood Cell % 0 /100 WBC (0); Platelet Count 334 Thou/mm3 (140-440); RDW Standard Deviation 46.4 fL (35.1-43.9); Red Blood Count 3.36 Miln/mm3 (4.50-5.90); White Blood Count 8.6 Thou/mm3 (3.8-10.6)
[2024-03-04 07:14] LABS: Hemoglobin 7.6 g/dL (13.5-16.0)
[2024-03-04 07:15] LABS: INR 1.2 (0.9-1.3); Partial Thromboplastin Time 34.6 Seconds (22.0-36.0); Prothrombin Time 12.6 Seconds (9.0-12.2)
[2024-03-04 07:25] LABS: Alanine Aminotransferase 30 U/L (10-49); Albumin/Globulin Ratio 1.1 (1.2-2.2); Alkaline Phosphatase 76 U/L (46-116); Anion Gap 8 (7-16); Aspartate Amino Transferase 26 U/L (0-34); BUN/Creatinine Ratio 22 Ratio (12-20); Bilirubin,Total 0.3 mg/dL (0.3-1.2); Blood Urea Nitrogen 13 mg/dL (9-23); Calcium 7.8 mg/dL (8.3-10.6); Calcium (Corrected) 8.6 mg/dL (8.5-10.1); Carbon Dioxide 23.5 mMol/L (20.0-31.0); Chloride 108 mMol/L (98-107); Creatinine (Component) 0.6 mg/dL (0.6-1.3); Estimated Creatinine Clearance 109.7 mL/min (>60); Globulin 2.7 gm/dL (2.3-3.5); Glucose 89 mg/dL (74-106); Osmolality,Calculated 276 (275-295); Phosphorous 2.8 mg/dL (2.4-5.1); Potassium 3.8 mMol/L (3.4-5.1); Sodium 139 mMol/L (136-145); Total Protein 5.7 gm/dL (5.7-8.2); eGFR > 60 See Note
[2024-03-04] MEDS: CEFEPIME INJ 2 GM in SODIUM CHLORIDE 0.9% 50 ML IV ×2 (08:58→21:45)
[2024-03-04] MEDS: VANCOMYCIN/WATER 1250 MG IVPB 250 ML 120 MG IV ×3 (09:03→23:04)
--- NOTE | 2024-03-04 14:21 | PC.SS ---
Rounding note: patient receiving below the knee amputation today.
--- NOTE | 2024-03-04 14:29 | SUR.PHASEI ---
1429: Pt. wakes to name then drifts back to sleep, vitals stable, breathing unlabored, no signs of distress, dressing to left lower leg CDI, no active bleed noted, report received from MD Silva and Davy STRANGE.
--- NOTE | 2024-03-04 14:35 | PD.SUROPNT ---
Date of Procedure 03/04/24 Pre Op Diagnosis Atherosclerosis of left lower extremity with gangrene of left leg Post Op Diagnosis Atherosclerosis of left lower extremity with gangrene of left leg Procedure Left below the knee amputation Findings Gangrene of left foot with ischemic and necrotic skin of the distal leg Procedure Description The patient was brought into the operating room in supine position after administration of monitored anesthesia care and popliteal nerve block, left lower extremity was prepped and draped in standard surgical manner. The anterior incision was made approximately 12 cm distal to the tibial tuberosity and the posterior incision was approximately 8 cm distal to the anterior incision. Dissection was carried through the subcutaneous tissue. The compartments of the leg entered. The fascias muscles were divided with electrocautery. Neurovascular bundles were ligated with #0 Vicryl tie. The patient was noted to have a complete occlusion and calcification of posterior tibial and peroneal arteries. Anterior tibial artery appeared to be patent. All the muscle compartments were excised. The tibia was divided approximately 5 cm proximal to the anterior incision and the fibula was divided approximately 7 cm proximal to the anterior incision. Wound was copiously and thoroughly washed and irrigated with betadine mixed with peroxide and saline. It was further washed with warm saline. The posterior skin and gastrocnemius muscle were raised anteriorly as a musculocutaneous flap. Posterior fascia was approximated to the anterior fascia with interrupted suture using #0 Vicryl. Hemostasis was adequate and satisfactory. Once the anterior fascia was reapproximated to the posterior fascia, the subcutaneous tissue was closed with interrupted suture using #0 Vicryl and the skin was closed with allie. Dry dressing as well as Kerlix was placed over the stump. The patient tolerated the procedure well, he was breathing spontaneously, and without difficulty, and was transferred to postanesthesia care in stable condition. Instrument, needle, and sponge counts were all reported to be correct x2. Anesthesia MAC and regional (Popliteal nerve block) Pathology / specimen Other (Left side and distal leg) Estimated Blood Loss 50 Condition Stable Disposition PACU Surgeon Kashif Randhawa MD Surgical Staff Operation Date: 03/04/24 12:30 <No data on this case meets the specified criteria>
--- NOTE | 2024-03-04 15:08 | PD.RESPRO ---
Documentation for date of: 03/04/24 Subjective Subjective Interval history: Patient was seen and examined at the bedside. Patient reported that he has left lower leg pain and was waiting for surgery and feeling anxious. Patient underwent surgery today without complication under care of Dr. Randhawa, surgeon. Will continue with cefepime and vancomycin and given pain regimen as needed. Patient was given 1 unit of PRBC and post H&H hemoglobin improved to 7.6. wound cultures grew GPC in 1 bottle and GNR in the second bottle. Blood pressure improved since patient received blood transfusion and IV fluids. White count and hemoglobin stable. Kidney functions remained stable. Will likely follow with surgery recommendations. Diet was resumed. All labs and orders were reviewed. Exam Vital Signs Temp Pulse Resp BP Pulse Ox O2 Del Method O2 Flow Rate 97.2 F 71 16 117/63 97 Room Air 3 03/04/24 14:44 03/04/24 14:44 03/04/24 14:44 03/04/24 14:44 03/04/24 14:44 03/04/24 11:45 03/04/24 14:44 Narrative Exam Constitutional: Patient was mildly anxious, AOx3 saturating well on room air. Eyes: EOMI, no scleral icterus ENMT: Moist Mucous Membranes CVS: RRR, S1 and S2 present, no murmurs, rubs or gallops . RESP: CTAB, no increased work of breathing, no rales, rhonchi or wheezing, on room air GI: Soft, nondistended, nontender MSK: Below-knee amputation left leg. DP pulses diminished on left lower extremity, +2 on right lower extremity. Skin: Warm to touch, Dry. Psych: (AAO) x3 . Appropriate mood and affect. Objective Labs 03/05/24 05:24 03/05/24 05:24 Labs: Laboratory Results - last 24 hr 03/03/24 03/04/24 03/04/24 16:45 00:59 06:30 WBC 8.6 RBC 3.36 L Hgb 7.0 L 7.6 L Hct 22.2 L 23.7 L MCV 71 L MCH 22.6 L MCHC 32.1 RDW Std Deviation 46.4 H Plt Count 334 D Neut % (Auto) 77 Lymph % (Auto) 9 L [place] % (Auto) 10 Eos % (Auto) 3 Baso % (Auto) 1 Neut # (Auto) 6.6 Lymph # (Auto) 0.8 L [place] # (Auto) 0.9 H Eos # (Auto) 0.2 Baso # (Auto) 0.1 Immature Gran # (Auto) 0.03 H Absolute Nucleated RBC 0.00 Immature Gran % 0 Nucleated RBC % 0 PT 12.6 H INR 1.2 APTT 34.6 Sodium 139 Potassium 3.8 Chloride 108 H Carbon Dioxide 23.5 Anion Gap 8 BUN 13 Creatinine 0.6 Estim Creat Clear Calc 109.7 eGFR > 60 BUN/Creatinine Ratio 22 H Glucose 89 Calculated Osmolality 276 Calcium 7.8 L Corrected Calcium 8.6 Phosphorus 2.8 Magnesium 2.0 Total Bilirubin 0.3 AST 26 ALT 30 Alkaline Phosphatase 76 Total Protein 5.7 Albumin 3.0 L Globulin 2.7 Albumin/Globulin Ratio 1.1 L Blood Type A Positive Antibody Screen NEGATIVE Crossmatch See Detail Blood Bank Wristband ID Yes Quality Measures Quality Measures VTE prophylaxis Advance care planning discussed with:: patient Assessment & Plan Assessment Current Active Medications: Generic Name Dose Route Start Last Admin Trade Name Freq PRN Reason Stop Dose Admin Acetaminophen 650 mg 03/01/24 14:19 Acetaminophen 325 Mg Tablet PO 03/31/24 14:18 Q6H PRN Fever >101.5 Acetaminophen 650 mg 03/01/24 14:19 Acetaminophen 325 Mg Tablet PO 03/31/24 14:18 Q6H PRN PAIN SCALE 1-3 (mild Hydrocodone Bitart/Acetaminophen 1 tab 03/03/24 21:21 03/04/24 06:54 Hydrocodone/Apap 7.5/325 Tablet PO 03/08/24 21:20 1 tab Q6HR PRN Administration Moderate Pain 4-7 Ascorbic Acid 500 mg 03/03/24 21:00 03/04/24 08:15 Ascorbic Acid 250 Mg Tablet PO 04/02/24 20:59 Not Given BID YARI Atorvastatin Calcium 80 mg 03/01/24 21:00 03/03/24 21:46 Atorvastatin Calcium 20 Mg Tablet PO 03/31/24 20:59 80 mg QPM YARI Administration Fentanyl Citrate 50 mcg 03/04/24 13:49 Fentanyl Cit Inj 50 Mcg/Ml Amp 2ml IV 03/04/24 15:50 Q5MIN PRN PAIN SCALE 4-10(Mod-Sev Heparin Sodium (Porcine) 5,000 unit 03/01/24 21:00 03/03/24 21:47 Heparin Sod Inj 5000 Unit/Ml Vial SC 03/15/24 20:59 Not Given Q12HR YARI Hydralazine HCl 5 mg 03/04/24 13:49 Hydralazine Inj 20 Mg/Ml Vial IV 03/04/24 15:50 Q20MIN PRN SEE COMMENTS Vancomycin HCl 250 mls @ 120 mls/hr 03/03/24 10:00 03/04/24 09:03 Vancomycin/Water 1250 Mg Ivpb IV 03/10/24 09:59 120 mls/hr Q12H YARI Administration Protocol Cefepime HCl 2 gm/ Sodium 50 mls @ 100 mls/hr 03/04/24 09:00 03/04/24 08:58 Chloride IV 03/11/24 08:59 100 mls/hr Q12HR YARI Administration Midazolam HCl 1 mg 03/04/24 13:49 Midazolam Inj 1 Mg/Ml Vial 2 Ml IV 03/05/24 13:48 Q5MIN PRN ANXIETY Morphine Sulfate 1 mg 03/03/24 21:22 03/04/24 05:31 Morphine Sulf Inj 10 Mg/Ml Vial IVP 03/08/24 14:16 1 mg Q6HR PRN Administration BREAKTHROUGH PAIN (SEVERE) Ondansetron HCl 4 mg 03/01/24 14:19 Ondansetron Inj 2 Mg/Ml Inj 2 Ml IV 03/31/24 14:18 Q6H PRN NAUSEA OR VOMITING Protocol Pharmacy Consult 1 each 03/02/24 06:31 Vancomycin Pharmacy To Dose 1 Each Each IV 03/31/24 14:29 QDAY PRN PROTOCOL Polyethylene Glycol 17 gm 03/03/24 10:08 Polyethylene Glycol 17 Gm Packet PO 03/31/24 14:51 Q6HR PRN CONSTIPATION Protocol Sennosides 1 tab 03/01/24 14:50 Senna Tablet PO 03/31/24 14:49 QDAY PRN CONSTIPATION Protocol Tamsulosin HCl 0.4 mg 03/01/24 21:00 03/03/24 21:47 Tamsulosin Hcl 0.4 Mg Capsule PO 03/31/24 20:59 Not Given HS YARI Zinc Sulfate 220 mg 03/04/24 09:00 03/04/24 08:15 Zinc Sulfate 220 Mg Capsule PO 04/03/24 08:59 Not Given QDAY YARI Plan Patient is a 73-year-old male with past medical history of CVA, CHF stage I diastolic dysfunction, PAD status post [employer]DU[employer] FREIGHT, CVI, hypertension, benign prostatic hyperplasia, prostate cancer status post external beam proton radiation, smoking history, hyperlipidemia presented with chief complaint of nonhealing lower left extremity wound. Patient admitted for management of osteomyelitis # Osteomyelitis of first metatarsal, left foot # Below-knee amputation status post osteomyelitis first metatarsal, left foot X-ray foot shows osteomyelitis of first metatarsal, peroneal soft tissue swelling around dorsum of foot WBC elevated at 14.9 Patient given 1 dose of Zosyn in the emergency room Dr Randhawa suggest BKA, however patient is persistent about contacting Dr. Caldwell for his opinion. Wound Gram stain negative-pending final culture Blood cultures -48 hours Wound culture grows gram-positive cocci and gram-negative aj, appears to be mixed ashley MRSA negative -Continue vancomycin and cefepime 03/01- -pain management as needed -Wound care -Wound cultures creatinine GPC and GNR covered with antibiotic -Follow-up on morning labs #Severe peripheral artery disease status post percutaneous transluminal angioplasty #Chronic limb ischemia #Gangrene of left lower extremity digits #History of first metatarsal amputation, left foot # Post BKA Patient has history of peripheral artery disease status post [employer]DU[employer] RO[address] FREIGHT. First metatarsal of left foot amputated by Dr Randhawa 3 months ago. Patient at that time very adamant on not having leg amputated. 5 weeks ago had another [address] FREIGHT performed by Dr. Caldwell. Patient states that his wound and gangrene has been getting worse since then. See physical exam description for more detailed description of wound CTA: occlusion proximal right posterior tibial artery 60% stenosis left superficial femoral artery stent in its midportion No contrast opacification of the distal left popliteal stent Occlusion proximal left anterior tibial artery, there is reconstitution of the mid and distal anterior tibial artery Occlusion of the proximal left posterior tibial and main continuation artery trunk Patient is agreeable to BKA, after consulting with Dr. Randhawa and Dr. Caldwell - Vancomycin and cefepime 03/01- - Pain control with [employer], morphine - Physical therapy when appropriate #Hypotension, improved ? Patient blood pressure was soft since yesterday. -Bolus of fluids were given -1 unit PRBC transfused -Post H&H hemoglobin improved to 7.6 -PRBC hemoglobin drops to 7 -Pain medications were adjusted. #Benign prostatic hyperplasia - Restarted patient's tamsulosin 0.4 mg #Hypertension BPs soft today, holding home dose - Will restart patients home metoprolol 25 PO Qday after surgery #Hyperlipidemia - Restarted patient's home dose of atorvastatin 80 mg Health maintenance Diet: Cardiac Diet, GI: patient is on a diet DVT:Heparin subcut Persaud: None Lines: Peripheral Dispo: Med Tele Code: Conditional: Patient is accepting of chest compressions, but is DNI- DO NOT INTUBATE Disposition: Patient underwent BKA for first metatarsal osteomyelitis, Left. Plan of care discussed with attending physician, Dr. Javi Lim MD, PGY 2 Attending Provider Attestation/Addendum I have discussed and was present for the essential components of the history, physical examination, diagnosis, and treatment plan with the resident. I agree with the patient's care as documented by the resident and amended herein by me. Juan José Leal DO. Patient seen and evaluated this AM. Patient undergo left BKA today with Dr. Randhawa, will continue to monitor closely after surgery. Although this document has been carefully reviewed, there may still be some phonetic and other typographical errors. These errors are purely grammatical due to imperfections in the software program and should not be construed in any way to compromise the substance of the patient's medical care during this visit.
--- NOTE | 2024-03-04 15:10 | SUR.PHASEI ---
1510: Pt. still sleepy, wakes to name and answers questions, but fall back to sleep. No complaint of pain or nausea, dressing to Left leg CDI, no active bleed noted, gave report to Coleen STRANGE prior to transfer to room 370.
--- NOTE | 2024-03-04 15:30 | SUR.PHASEI ---
1510: Family made aware of transfer to room 370.
--- NOTE | 2024-03-04 19:31 | ESPR_ITS ---
Documentation for date of: 03/04/24 ANESTHESIA NOTE: Patient had regional anesthesia with L femoral and popliteal nerve blocks and monitored sedation for L BKA earlier today. Pre-op, I saw him in holding with his visitor. He was alert and calm in bed, L foot with multiple sites of gangrene. He has h/o HTN, PAD, CHF and past echo jia wed moderate to severe pul HTN with TR. He has been anemic and received 1 unit of RBC pre-op on the floor. This was d/w them. He did well intra-op. I gave him 1 unit of RBC intra-op and about 200 cc of NS. He did well in PACU and was later transferred back to floor. I briefly saw him in 370 around 19:20 and he was alert and calm in bed, NAD. Will defer further management to the floor/primary team. Umair Silva MD Anesthesia Progress Note Progress Note Most recent Vital Signs: Last Vital Signs Temp 97.4 F 03/04/24 16:45 Pulse 69 03/04/24 17:18 Resp 16 03/04/24 16:45 BP 112/75 03/04/24 16:45 Pulse Ox 92 L 03/04/24 16:45 O2 Del Method Room Air 03/04/24 16:45 O2 Flow Rate 2 03/04/24 14:59
--- NOTE | 2024-03-04 20:09 | EKG_ITS ---
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 : 1950 Requested By: Emmanuel Turner Order Number: [id number] Reading MD: Emmanuel Turner Measurements Intervals [place] Rate: 87 P: 108 LA: 261 QRS: 34 QRSD: 109 T: 16 QT: 390 QTc: 471 Interpretive Statements SINUS RHYTHM WITH SINUS ARRHYTHMIA WITH FIRST DEGREE AV BLOCK ANTEROSEPTAL MYOCARDIAL INFARCTION , OF INDETERMINATE AGE [40+ ms Q WAVE IN V1-V4] MODERATE T-WAVE ABNORMALITY, CONSIDER LATERAL ISCHEMIA [-0.1+ mV T WAVE IN I/aVL/V5/V6] Compared to ECG 03/02/2024 14:21:02 T-wave abnormality now present Possible ischemia now present Myocardial infarct finding still present /store/S0/[id number].pdf
[2024-03-04] MEDS: POTASSIUM CHLORIDE 20 mEq TABCR PO (20:51)
[2024-03-04] MEDS: METOPROLOL SUCCINATE XL 25 MG TABCR PO (20:52)
[2024-03-04] MEDS: DOCUSATE SOD 100 MG CAPSULE PO (20:52)
[2024-03-04] MEDS: TAMSULOSIN HCL 0.4 MG CAPSULE PO (20:53)
[2024-03-04] MEDS: ATORVASTATIN CALCIUM 20 MG TABLET 80 MG PO (20:59)
[2024-03-04] MEDS: ASCORBIC ACID 250 MG TABLET 500 MG PO (21:00)
[2024-03-04 21:59] LABS: Vancomycin,Trough 16.2 mcg/mL (5.0-10.0)
[2024-03-05] VITALS (9 sets, daily range): BP systolic 112–123; BP diastolic 56–70; PULSE 51–82; RESP 16–95; TEMP 36.3–36.8; O2SAT 92–96; BMI 26.9; BMI 28.0
[2024-03-05] MEDS: CALCIUM CARBONATE 600 MG TABLET PO (03:00)
[2024-03-05] MEDS: ONDANSETRON INJ 2 MG/ML INJ 2 ML 4 MG IV (04:54)
[2024-03-05] MEDS: MORPHINE SULF INJ 10 MG/ML VIAL 2 MG IVP ×2 (04:57→15:39)
[2024-03-05] MEDS: PANTOPRAZOLE 40 MG TABLET PO (05:10)
[2024-03-05 06:30] LABS: Basophils % (Auto) 0 % (0-2.5); Eosinophils % (Auto) 0 % (0-10); Hematocrit 29.7 % (41.0-53.0); Hemoglobin 9.3 g/dL (13.5-16.0); Immature Granulocytes % (Auto) 0 % (0-0); Immature Granulocytes Auto 0.06 Thou/mm3 (0.00-0.00); Lymphocytes # (Auto) 0.4 Thou/mm3 (1.0-4.8); Lymphocytes % (Auto) 3 % (10-50); Mean Corpuscular HGB Conc 31.3 g/dl (31.0-37.0); Mean Corpuscular Hemoglobin 23.4 pg (25.0-35.0); Mean Corpuscular Volume 75 fL (80-100); Monocytes # (Auto) 0.7 Thou/mm3 (0.0-0.8); Monocytes % (Auto) 5 % (0-12); Neutrophils # (Auto) 12.5 Thou/mm3 (1.8-7.7); Neutrophils % (Auto) 92 % (37-80); Nucleated Red Blood Cell % 0 /100 WBC (0); Platelet Count 334 Thou/mm3 (140-440); RDW Standard Deviation 51.4 fL (35.1-43.9); Red Blood Count 3.98 Miln/mm3 (4.50-5.90); White Blood Count 13.7 Thou/mm3 (3.8-10.6)
[2024-03-05 06:55] LABS: Alanine Aminotransferase 34 U/L (10-49); Albumin, Serum 3.3 gm/dL (3.4-4.8); Albumin/Globulin Ratio 1.1 (1.2-2.2); Alkaline Phosphatase 91 U/L (46-116); Anion Gap 8 (7-16); Aspartate Amino Transferase 31 U/L (0-34); BUN/Creatinine Ratio 31 Ratio (12-20); Bilirubin,Total 0.3 mg/dL (0.3-1.2); Blood Urea Nitrogen 22 mg/dL (9-23); Calcium 8.7 mg/dL (8.3-10.6); Calcium (Corrected) 9.3 mg/dL (8.5-10.1); Carbon Dioxide 23.7 mMol/L (20.0-31.0); Chloride 108 mMol/L (98-107); Creatinine (Component) 0.7 mg/dL (0.6-1.3); Globulin 2.9 gm/dL (2.3-3.5); Glucose 167 mg/dL (74-106); Osmolality,Calculated 286 (275-295); Potassium 4.1 mMol/L (3.4-5.1); Sodium 140 mMol/L (136-145); Total Protein 6.2 gm/dL (5.7-8.2); eGFR > 60 See Note
[2024-03-05] MEDS: ASCORBIC ACID 250 MG TABLET 500 MG PO ×2 (08:02→20:31)
[2024-03-05] MEDS: DOCUSATE SOD 100 MG CAPSULE PO ×2 (08:02→20:31)
[2024-03-05] MEDS: ZINC SULFATE 220 MG CAPSULE PO (08:02)
[2024-03-05] MEDS: CEFEPIME INJ 2 GM in SODIUM CHLORIDE 0.9% 50 ML IV ×2 (09:42→20:32)
[2024-03-05] MEDS: VANCOMYCIN/WATER 1250 MG IVPB 250 ML 120 MG IV ×2 (09:42→21:23)
[2024-03-05] MEDS: NAPH,KPH MBDB 1 PACKET (1.5 GM) 2 PACKET PO (09:42)
--- NOTE | 2024-03-05 12:05 | PD.SURPROG ---
Documentation for date of: 03/05/24 Subjective Subjective Narrative: Pt is seen and examined Exam Vital Signs Temp Pulse Resp BP Pulse Ox O2 Del Method O2 Flow Rate 98.2 F 55 L 17 112/58 L 92 L Room Air 2 03/05/24 08:00 03/05/24 08:00 03/05/24 08:00 03/05/24 08:00 03/05/24 08:00 03/05/24 08:00 03/04/24 14:59 Constitutional Constitutional: no acute distress Routine Extremities Exam Comments: Left below the knee amputation stump with dressings clean, dry and intact Assessment & Plan Assessment Additional comments: POD#1 s/p left BKA Plan Keep dressings intact. Will remove dressings on POD#3 Procedures Procedures Left below the knee amputation
--- NOTE | 2024-03-05 12:50 | EKG_ITS ---
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 : 1950 Requested By: Lai Bahena Order Number: [id number] Reading MD: Lai Bahena Measurements Intervals [place] Rate: 53 P: 27 ID: [id number] QRS: 37 QRSD: 111 T: 32 QT: 459 QTc: 433 Interpretive Statements SINUS BRADYCARDIA ANTEROSEPTAL MYOCARDIAL INFARCTION , OF INDETERMINATE AGE [40+ ms Q WAVE IN V1-V4] MODERATE T-WAVE ABNORMALITY, CONSIDER LATERAL ISCHEMIA [-0.1+ mV T WAVE IN I/aVL/V5/V6] Compared to ECG 03/02/2024 14:21:02 T-wave abnormality now present Possible ischemia now present Sinus rhythm no longer present First degree AV block no longer present Myocardial infarct finding still present /store/S0/[id number].pdf
--- NOTE | 2024-03-05 13:07 | PD.RESPRO ---
Documentation for date of: 03/05/24 Subjective Subjective Interval history: 03/05: Overnight nurses called stating patient was in A-fib. Patient was given 25 metoprolol. On further examination of the EKG obtained it appears that patient is in sinus rhythm. Patient underwent BKA yesterday. Patient states that his pain is much better after procedure. WBC elevated this morning at 13.7, likely reactive. Vitals stable this a.m. will finish last course of antibiotics through tomorrow. Currently pending further surgery recommendations, pain management. Exam Vital Signs Temp Pulse Resp BP Pulse Ox O2 Del Method O2 Flow Rate 98.2 F 55 L 17 112/58 L 92 L Room Air 2 03/05/24 08:00 03/05/24 08:00 03/05/24 08:00 03/05/24 08:00 03/05/24 08:00 03/05/24 08:00 03/04/24 14:59 Narrative Exam Constitutional: Patient was mildly anxious, AOx3 saturating well on room air. Eyes: EOMI, no scleral icterus ENMT: Moist Mucous Membranes CVS: RRR, S1 and S2 present, no murmurs, rubs or gallops . RESP: CTAB, no increased work of breathing, no rales, rhonchi or wheezing, on room air GI: Soft, nondistended, nontender MSK: Below-knee amputation left leg. Skin: Warm to touch, Dry. Psych: (AAO) x3 . Appropriate mood and affect. Objective Labs 03/05/24 05:24 03/05/24 05:24 Labs: Laboratory Results - last 24 hr 03/04/24 03/05/24 21:03 05:24 WBC 13.7 H D RBC 3.98 L Hgb 9.3 L D Hct 29.7 L MCV 75 L MCH 23.4 L MCHC 31.3 RDW Std Deviation 51.4 H Plt Count 334 Neut % (Auto) 92 H Lymph % (Auto) 3 L [place] % (Auto) 5 Eos % (Auto) 0 Baso % (Auto) 0 Neut # (Auto) 12.5 H Lymph # (Auto) 0.4 L [place] # (Auto) 0.7 Eos # (Auto) 0.0 Baso # (Auto) 0.0 Immature Gran # (Auto) 0.06 H Absolute Nucleated RBC 0.00 Immature Gran % 0 Nucleated RBC % 0 Sodium 140 Potassium 4.1 Chloride 108 H Carbon Dioxide 23.7 Anion Gap 8 BUN 22 Creatinine 0.7 Estim Creat Clear Calc 102.0 eGFR > 60 BUN/Creatinine Ratio 31 H Glucose 167 H D Calculated Osmolality 286 Calcium 8.7 Corrected Calcium 9.3 Phosphorus 2.0 L Magnesium 2.0 Total Bilirubin 0.3 AST 31 ALT 34 Alkaline Phosphatase 91 Total Protein 6.2 Albumin 3.3 L Globulin 2.9 Albumin/Globulin Ratio 1.1 L Vancomycin Trough 16.2 H Quality Measures Quality Measures VTE prophylaxis Advance care planning discussed with:: patient Assessment & Plan Assessment Current Active Medications: Generic Name Dose Route Start Last Admin Trade Name Freq PRN Reason Stop Dose Admin Acetaminophen 650 mg 03/01/24 14:19 Acetaminophen 325 Mg Tablet PO 03/31/24 14:18 Q6H PRN Fever >101.5 Acetaminophen 650 mg 03/01/24 14:19 Acetaminophen 325 Mg Tablet PO 03/31/24 14:18 Q6H PRN PAIN SCALE 1-3 (mild Hydrocodone Bitart/Acetaminophen 1 tab 03/03/24 21:21 03/04/24 06:54 Hydrocodone/Apap 7.5/325 Tablet PO 03/08/24 21:20 1 tab Q6HR PRN Administration Moderate Pain 4-7 Ascorbic Acid 500 mg 03/03/24 21:00 03/05/24 08:02 Ascorbic Acid 250 Mg Tablet PO 04/02/24 20:59 500 mg BID YARI Administration Atorvastatin Calcium 80 mg 03/01/24 21:00 03/04/24 20:59 Atorvastatin Calcium 20 Mg Tablet PO 03/31/24 20:59 80 mg QPM YARI Administration Docusate Sodium 100 mg 03/04/24 21:00 03/05/24 08:02 Docusate Sod 100 Mg Capsule PO 04/03/24 20:59 100 mg BID YARI Administration Protocol Vancomycin HCl 250 mls @ 120 mls/hr 03/03/24 10:00 03/05/24 09:42 Vancomycin/Water 1250 Mg Ivpb IV 03/10/24 09:59 120 mls/hr Q12H YARI Administration Protocol Cefepime HCl 2 gm/ Sodium 50 mls @ 100 mls/hr 03/04/24 09:00 03/05/24 09:42 Chloride IV 03/11/24 08:59 100 mls/hr Q12HR YARI Administration Metoclopramide HCl 10 mg 03/05/24 10:51 Metoclopramide 5 Mg Tablet PO 04/04/24 10:50 Q6HR PRN NAUSEA OR VOMITING Morphine Sulfate 2 mg 03/05/24 11:37 Morphine Sulf Inj 10 Mg/Ml Vial IVP 03/09/24 15:18 Q2H PRN PAIN SCALE 8-10 (Severe Ondansetron HCl 4 mg 03/01/24 14:19 03/05/24 04:54 Ondansetron Inj 2 Mg/Ml Inj 2 Ml IV 03/31/24 14:18 4 mg Q6H PRN Administration NAUSEA OR VOMITING Protocol Pharmacy Consult 1 each 03/02/24 06:31 Vancomycin Pharmacy To Dose 1 Each Each IV 03/31/24 14:29 QDAY PRN PROTOCOL Polyethylene Glycol 17 gm 03/03/24 10:08 Polyethylene Glycol 17 Gm Packet PO 03/31/24 14:51 Q6HR PRN CONSTIPATION Protocol Sennosides 1 tab 03/01/24 14:50 Senna Tablet PO 03/31/24 14:49 QDAY PRN CONSTIPATION Protocol Tamsulosin HCl 0.4 mg 03/01/24 21:00 03/04/24 20:53 Tamsulosin Hcl 0.4 Mg Capsule PO 03/31/24 20:59 0.4 mg HS YARI Administration Zinc Sulfate 220 mg 03/04/24 09:00 03/05/24 08:02 Zinc Sulfate 220 Mg Capsule PO 04/03/24 08:59 220 mg QDAY YARI Administration Plan Patient is a 73-year-old male with past medical history of CVA, CHF stage I diastolic dysfunction, 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 Patient admitted for management of osteomyelitis and below-knee amputation. # Osteomyelitis of first metatarsal, left foot # Below-knee amputation status post osteomyelitis first metatarsal, left foot X-ray foot shows osteomyelitis of first metatarsal, peroneal soft tissue swelling around dorsum of foot WBC elevated at 14.9 Patient given 1 dose of Zosyn in the emergency room Dr Randhawa suggest BKA, however patient is persistent about contacting Dr. Caldwell for his opinion. Wound Gram stain negative-pending final culture Blood cultures -48 hours Wound culture grows gram-positive cocci and gram-negative aj, appears to be mixed ashley MRSA negative -Continue vancomycin and cefepime 03/01-to finish tomorrow as patient has had wound amputated. 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 First metatarsal of left foot amputated by Dr Randhawa 3 months ago. Patient at that time very adamant on not having leg amputated. 5 weeks ago had another CHILD DEVELOPMENT DIRECTOR performed by Dr. Caldwell. Patient states that his wound and gangrene has been getting worse since then. See physical exam description for more detailed description of wound CTA: occlusion proximal right posterior tibial artery 60% stenosis left superficial femoral artery stent in its midportion No contrast opacification of the distal left popliteal stent Occlusion proximal left anterior tibial artery, there is reconstitution of the mid and distal anterior tibial artery Occlusion of the proximal left posterior tibial and main continuation artery trunk Patient is agreeable to BKA, after consulting with Dr. Randhawa and Dr. Caldwell - Vancomycin and cefepime 03/01-03/06 - Pain control with Silver, morphine - Physical therapy when appropriate #Hypotension, improved -Bolus of fluids were given -1 unit PRBC transfused -Post H&H hemoglobin improved to 7.6 -PRBC if hemoglobin drops to 7 -Pain medications were adjusted. -Will continue to trend #Benign prostatic hyperplasia -Home tamsulosin 0.4 mg #Hypertension BPs soft today, holding home dose - Will restart patients home metoprolol 25 PO Qday as pressures allow #Hyperlipidemia - Restarted patient's home dose of atorvastatin 80 mg Health maintenance Diet: Cardiac Diet, GI: patient is on a diet DVT:Heparin subcut Persaud: None Lines: Peripheral Dispo: Med Tele Code: Conditional: Patient is accepting of chest compressions, but is DNI- DO NOT INTUBATE Disposition: Patient underwent BKA for first metatarsal osteomyelitis, Left. Plan of care discussed with attending physician, Dr. Mel Bahena DO PGY1 Anesthesiology Attending Provider Attestation/Addendum Sodium and I have discussed and was present for the essential components of the history, physical examination, diagnosis, and treatment plan with the resident. I agree with the patient's care as documented by the resident and amended herein by me. Juan José Leal DO. Patient seen and evaluated this AM. Patient postop day 1 from left leg BKA. Patient did have some complaints of nausea this morning without vomiting, he stated his pain is under control at present although receiving opioids. Wound care on board, will continue broad-spectrum antibiotics for now and likely de-escalate tomorrow pending any surgical recommendations. Will continue to monitor closely. Although this document has been carefully reviewed, there may still be some phonetic and other typographical errors. These errors are purely grammatical due to imperfections in the software program and should not be construed in any way to compromise the substance of the patient's medical care during this visit.
[2024-03-05] MEDS: ACETAMINOPHEN 325 MG TABLET 650 MG PO (18:21)
--- NOTE | 2024-03-05 20:20 | PC.NURSE ---
MD Walter made aware that pt had 2 sec pause and bradycardia to 37 but did not sustain, HR at this time on 53, per MD will check on pts chart no new order made at this time.
[2024-03-05] MEDS: TAMSULOSIN HCL 0.4 MG CAPSULE PO (20:31)
[2024-03-05] MEDS: ATORVASTATIN CALCIUM 20 MG TABLET 80 MG PO (20:32)
[2024-03-05] MEDS: HYDROcodone/APAP 7.5/325 TABLET 1 TAB PO (21:23)
[2024-03-05] MEDS: MELATONIN 3 MG TABLET PO (22:49)
[2024-03-06] VITALS (10 sets, daily range): BP systolic 90–126; BP diastolic 52–68; PULSE 48–69; RESP 15–92; TEMP 36.3–37.2; O2SAT 95–97; BMI 26.2
[2024-03-06] MEDS: MORPHINE SULF INJ 10 MG/ML VIAL 2 MG IVP ×4 (00:11→23:46)
[2024-03-06 05:44] LABS: Basophils % (Auto) 0 % (0-2.5); Eosinophils # (Auto) 0.1 Thou/mm3 (0.0-0.5); Eosinophils % (Auto) 1 % (0-10); Hemoglobin 8.7 g/dL (13.5-16.0); Immature Granulocytes % (Auto) 1 % (0-0); Immature Granulocytes Auto 0.08 Thou/mm3 (0.00-0.00); Lymphocytes # (Auto) 1.6 Thou/mm3 (1.0-4.8); Lymphocytes % (Auto) 10 % (10-50); Mean Corpuscular HGB Conc 31.1 g/dl (31.0-37.0); Mean Corpuscular Hemoglobin 23.3 pg (25.0-35.0); Mean Corpuscular Volume 75 fL (80-100); Monocytes # (Auto) 1.1 Thou/mm3 (0.0-0.8); Monocytes % (Auto) 7 % (0-12); Neutrophils # (Auto) 12.5 Thou/mm3 (1.8-7.7); Neutrophils % (Auto) 81 % (37-80); Nucleated Red Blood Cell % 0 /100 WBC (0); Platelet Count 414 Thou/mm3 (140-440); RDW Standard Deviation 52.5 fL (35.1-43.9); Red Blood Count 3.74 Miln/mm3 (4.50-5.90); White Blood Count 15.5 Thou/mm3 (3.8-10.6)
[2024-03-06 06:07] LABS: Alanine Aminotransferase 35 U/L (10-49); Albumin, Serum 3.2 gm/dL (3.4-4.8); Albumin/Globulin Ratio 1.3 (1.2-2.2); Alkaline Phosphatase 82 U/L (46-116); Anion Gap 8 (7-16); Aspartate Amino Transferase 29 U/L (0-34); BUN/Creatinine Ratio 31 Ratio (12-20); Bilirubin,Total 0.2 mg/dL (0.3-1.2); Blood Urea Nitrogen 22 mg/dL (9-23); Calcium 8.4 mg/dL (8.3-10.6); Carbon Dioxide 24.8 mMol/L (20.0-31.0); Chloride 108 mMol/L (98-107); Creatinine (Component) 0.7 mg/dL (0.6-1.3); Estimated Creatinine Clearance 100.2 mL/min (>60); Globulin 2.5 gm/dL (2.3-3.5); Glucose 91 mg/dL (74-106); Magnesium 1.8 mg/dL (1.6-2.6); Osmolality,Calculated 284 (275-295); Phosphorous 2.6 mg/dL (2.4-5.1); Potassium 4.3 mMol/L (3.4-5.1); Sodium 141 mMol/L (136-145); Total Protein 5.7 gm/dL (5.7-8.2); eGFR > 60 See Note
[2024-03-06] MEDS: ZINC SULFATE 220 MG CAPSULE PO (08:25)
[2024-03-06] MEDS: DOCUSATE SOD 100 MG CAPSULE PO ×2 (08:25→20:54)
[2024-03-06] MEDS: ASCORBIC ACID 250 MG TABLET 500 MG PO ×2 (08:25→20:54)
[2024-03-06] MEDS: Magnesium Sulfate 2 GM Ivpb 2 GM/50 ML BAG IV (09:39)
[2024-03-06 10:01] LABS: Vancomycin,Trough 20.2 mcg/mL (5.0-10.0)
--- NOTE | 2024-03-06 14:32 | ESPR_ITS ---
Documentation for date of: 03/06/24 Subjective Subjective Interval history: 03/06: No acute events overnight. Vitals are stable. WBC elevated 15.5 from 13.7, rest of CBC appears stable. Electrolytes appear stable. Patient denies any new symptoms. Patient to continue wound care, dressings to be removed on 03/07. De-escalating from vancomycin and cefepime to ceftriaxone and doxycycline. Pending further surgery recommendations. Exam Vital Signs Temp Pulse Resp BP Pulse Ox O2 Del Method O2 Flow Rate 98.0 F 60 16 103/64 96 Room Air 2 03/06/24 11:49 03/06/24 12:00 03/06/24 11:49 03/06/24 11:49 03/06/24 11:49 03/06/24 11:49 03/04/24 14:59 Narrative Exam Constitutional: Patient was mildly anxious, AOx3 saturating well on room air. Eyes: EOMI, no scleral icterus ENMT: Moist Mucous Membranes CVS: RRR, S1 and S2 present, no murmurs, rubs or gallops . RESP: CTAB, no increased work of breathing, no rales, rhonchi or wheezing, on room air GI: Soft, nondistended, nontender MSK: Below-knee amputation left leg. Skin: Warm to touch, Dry. Psych: (AAO) x3 . Appropriate mood and affect. Objective Labs 03/06/24 04:44 03/06/24 04:44 Labs: Laboratory Results - last 24 hr 03/06/24 03/06/24 04:44 09:20 WBC 15.5 H RBC 3.74 L Hgb 8.7 L Hct 28.0 L MCV 75 L MCH 23.3 L MCHC 31.1 RDW Std Deviation 52.5 H Plt Count 414 D Neut % (Auto) 81 H Lymph % (Auto) 10 [place] % (Auto) 7 Eos % (Auto) 1 Baso % (Auto) 0 Neut # (Auto) 12.5 H Lymph # (Auto) 1.6 [place] # (Auto) 1.1 H Eos # (Auto) 0.1 Baso # (Auto) 0.0 Immature Gran # (Auto) 0.08 H Absolute Nucleated RBC 0.00 Immature Gran % 1 H Nucleated RBC % 0 Sodium 141 Potassium 4.3 Chloride 108 H Carbon Dioxide 24.8 Anion Gap 8 BUN 22 Creatinine 0.7 Estim Creat Clear Calc 100.2 eGFR > 60 BUN/Creatinine Ratio 31 H Glucose 91 D Calculated Osmolality 284 Calcium 8.4 Corrected Calcium 9.0 Phosphorus 2.6 Magnesium 1.8 Total Bilirubin 0.2 L AST 29 ALT 35 Alkaline Phosphatase 82 Total Protein 5.7 Albumin 3.2 L Globulin 2.5 Albumin/Globulin Ratio 1.3 Vancomycin Trough 20.2 H* Quality Measures Quality Measures VTE prophylaxis Advance care planning discussed with:: patient Assessment & Plan Assessment Current Active Medications: Generic Name Dose Route Start Last Admin Trade Name Freq PRN Reason Stop Dose Admin Acetaminophen 650 mg 03/01/24 14:19 Acetaminophen 325 Mg Tablet PO 03/31/24 14:18 Q6H PRN Fever >101.5 Acetaminophen 650 mg 03/01/24 14:19 03/05/24 18:21 Acetaminophen 325 Mg Tablet PO 03/31/24 14:18 650 mg Q6H PRN Administration PAIN SCALE 1-3 (mild Hydrocodone Bitart/Acetaminophen 1 tab 03/03/24 21:21 03/05/24 21:23 Hydrocodone/Apap 7.5/325 Tablet PO 03/08/24 21:20 1 tab Q6HR PRN Administration Moderate Pain 4-7 Ascorbic Acid 500 mg 03/03/24 21:00 03/06/24 08:25 Ascorbic Acid 250 Mg Tablet PO 04/02/24 20:59 500 mg BID YARI Administration Atorvastatin Calcium 80 mg 03/01/24 21:00 03/05/24 20:32 Atorvastatin Calcium 20 Mg Tablet PO 03/31/24 20:59 80 mg QPM YARI Administration Docusate Sodium 100 mg 03/04/24 21:00 03/06/24 08:25 Docusate Sod 100 Mg Capsule PO 04/03/24 20:59 100 mg BID YARI Administration Protocol Ceftriaxone Sodium/Dextrose 50 mls @ 100 mls/hr 03/07/24 09:00 Rocephin/D5w 1gm Iv Premix IV 03/14/24 08:59 QDAY YARI Metoclopramide HCl 10 mg 03/05/24 10:51 Metoclopramide 5 Mg Tablet PO 04/04/24 10:50 Q6HR PRN NAUSEA OR VOMITING Morphine Sulfate 2 mg 03/05/24 11:37 03/06/24 00:11 Morphine Sulf Inj 10 Mg/Ml Vial IVP 03/09/24 15:18 2 mg Q2H PRN Administration PAIN SCALE 8-10 (Severe Ondansetron HCl 4 mg 03/01/24 14:19 03/05/24 04:54 Ondansetron Inj 2 Mg/Ml Inj 2 Ml IV 03/31/24 14:18 4 mg Q6H PRN Administration NAUSEA OR VOMITING Protocol Polyethylene Glycol 17 gm 03/03/24 10:08 Polyethylene Glycol 17 Gm Packet PO 03/31/24 14:51 Q6HR PRN CONSTIPATION Protocol Sennosides 1 tab 03/01/24 14:50 Senna Tablet PO 03/31/24 14:49 QDAY PRN CONSTIPATION Protocol Tamsulosin HCl 0.4 mg 03/01/24 21:00 03/05/24 20:31 Tamsulosin Hcl 0.4 Mg Capsule PO 03/31/24 20:59 0.4 mg HS YARI Administration Zinc Sulfate 220 mg 03/04/24 09:00 03/06/24 08:25 Zinc Sulfate 220 Mg Capsule PO 04/03/24 08:59 220 mg QDAY YARI Administration Plan Patient is a 73-year-old male with past medical history of CVA, CHF stage I diastolic dysfunction, PAD status post DIRECTOR OF RESIDENTIAL SERVICES, CVI, hypertension, benign prostatic hyperplasia, prostate cancer status post external beam proton radiation, smoking history, hyperlipidemia presented with chief complaint of nonhealing lower left extremity wound. Patient admitted for management of osteomyelitis and below- knee amputation. # Osteomyelitis of first metatarsal, left foot # Below-knee amputation status post osteomyelitis first metatarsal, left foot X-ray foot shows osteomyelitis of first metatarsal, peroneal soft tissue swelling around dorsum of foot WBC elevated at 14.9 Patient given 1 dose of Zosyn in the emergency room Dr Randhawa suggest BKA, however patient is persistent about contacting Dr. Caldwell for his opinion. Wound Gram stain negative-pending final culture Blood cultures -48 hours Wound culture grows gram-positive cocci and gram-negative aj, appears to be mixed ashley MRSA negative Vancomycin and cefepime on from 03/01 to 03/06 -De-escalating to ceftriaxone and doxycycline 03/06?. -pain management as needed -Wound care -Follow-up on morning labs -Dressings in place, to be intact until postoperative day 3 (03/07) #Severe peripheral artery disease status post percutaneous transluminal angioplasty #Chronic limb ischemia #Gangrene of left lower extremity digits #History of first metatarsal amputation, left foot # Post BKA Patient has history of peripheral artery disease status post DIRECTOR OF RESIDENTIAL SERVICES. First metatarsal of left foot amputated by Dr Randhawa 3 months ago. Patient at that time very adamant on not having leg amputated. 5 weeks ago had another DIRECTOR OF RESIDENTIAL SERVICES performed by Dr. Caldwell. Patient states that his wound and gangrene has been getting worse since then. See physical exam description for more detailed description of wound CTA: occlusion proximal right posterior tibial artery 60% stenosis left superficial femoral artery stent in its midportion No contrast opacification of the distal left popliteal stent Occlusion proximal left anterior tibial artery, there is reconstitution of the mid and distal anterior tibial artery Occlusion of the proximal left posterior tibial and main continuation artery trunk BKA performed by Dr. Randhawa on 03/04 -Wound care - Pain control with Sal[place], morphine - Physical therapy when appropriate #Hypotension, improved -Bolus of fluids were given -1 unit PRBC transfused -Post H&H hemoglobin improved to 7.6 -PRBC if hemoglobin drops to 7 -Pain medications were adjusted. -Will continue to trend #Benign prostatic hyperplasia -Home tamsulosin 0.4 mg #Hypertension BPs soft today, holding home dose - Will restart patients home metoprolol 25 PO Qday as pressures allow #Hyperlipidemia - Restarted patient's home dose of atorvastatin 80 mg Health maintenance Diet: Cardiac Diet, GI: patient is on a diet DVT:Heparin subcut Persaud: None Lines: Peripheral Dispo: Med Tele Code: Conditional: Patient is accepting of chest compressions, but is DNI- DO NOT INTUBATE Disposition: Patient underwent BKA for first metatarsal osteomyelitis, Left. Plan of care discussed with attending physician, Dr. Mel Bahena DO PGY1 Anesthesiology Senior Resident Attestation: I discussed with and supervised the software intern physician involved in the care of this patient. I personally saw and examined the patient and discussed the assessment and plan with the entire medicine team, including my attending. I agree with the assessment and plan as documented above. [ Patient seen examined at bedside. Patient's status post day 2 of below the knee amputation due to osteomyelitis. Will continue antibiotics with Rocephin and doxycycline. Will continue his pain management. Patient will likely be discharged back to SNF anticipatory discharge 2 more days. ] - Patient's care was discussed with my attending physician. William Combs MD Internal Medicine PGY-3 Attending Provider Attestation/Addendum I have discussed and was present for the essential components of the history, physical examination, diagnosis, and treatment plan with the resident. I agree with the patient's care as documented by the resident and amended herein by me. Juan José Leal DO. Patient seen and evaluated this AM. Postop day 2, no significant plaints, pain seems to be controlled in the morning. Will remove dressing per surgical recommendations on postop day 3. Will continue antibiotics for now and continue monitor closely. Although this document has been carefully reviewed, there may still be some phonetic and other typographical errors. These errors are purely grammatical due to imperfections in the software program and should not be construed in any way to compromise the substance of the patient's medical care during this visit.
[2024-03-06] MEDS: HYDROcodone/APAP 7.5/325 TABLET 1 TAB PO (20:52)
[2024-03-06] MEDS: MELATONIN 3 MG TABLET PO (20:52)
[2024-03-06] MEDS: ATORVASTATIN CALCIUM 20 MG TABLET 80 MG PO (20:53)
[2024-03-06] MEDS: TAMSULOSIN HCL 0.4 MG CAPSULE PO (20:54)
[2024-03-07] VITALS (9 sets, daily range): BP systolic 98–116; BP diastolic 52–64; PULSE 57–92; RESP 15–97; TEMP 36.2–38.9; O2SAT 94–96; BMI 26.9
[2024-03-07] MEDS: HYDROcodone/APAP 7.5/325 TABLET 1 TAB PO ×2 (03:50→19:37)
[2024-03-07 05:58] LABS: Basophils # (Auto) 0.1 Thou/mm3 (0.0-0.2); Basophils % (Auto) 1 % (0-2.5); Eosinophils # (Auto) 0.3 Thou/mm3 (0.0-0.5); Eosinophils % (Auto) 3 % (0-10); Hematocrit 27.7 % (41.0-53.0); Immature Granulocytes % (Auto) 1 % (0-0); Immature Granulocytes Auto 0.06 Thou/mm3 (0.00-0.00); Lymphocytes # (Auto) 1.4 Thou/mm3 (1.0-4.8); Lymphocytes % (Auto) 12 % (10-50); Mean Corpuscular HGB Conc 31.8 g/dl (31.0-37.0); Mean Corpuscular Hemoglobin 23.4 pg (25.0-35.0); Mean Corpuscular Volume 74 fL (80-100); Monocytes # (Auto) 1.1 Thou/mm3 (0.0-0.8); Monocytes % (Auto) 10 % (0-12); Neutrophils # (Auto) 8.5 Thou/mm3 (1.8-7.7); Neutrophils % (Auto) 74 % (37-80); Nucleated Red Blood Cell % 0 /100 WBC (0); Platelet Count 442 Thou/mm3 (140-440); RDW Standard Deviation 53.4 fL (35.1-43.9); Red Blood Count 3.76 Miln/mm3 (4.50-5.90); White Blood Count 11.4 Thou/mm3 (3.8-10.6)
[2024-03-07 06:03] LABS: Hemoglobin 8.8 g/dL (13.5-16.0)
[2024-03-07 06:15] LABS: Alanine Aminotransferase 36 U/L (10-49); Albumin/Globulin Ratio 1.2 (1.2-2.2); Alkaline Phosphatase 81 U/L (46-116); Anion Gap 6 (7-16); Aspartate Amino Transferase 28 U/L (0-34); BUN/Creatinine Ratio 37 Ratio (12-20); Bilirubin,Total 0.2 mg/dL (0.3-1.2); Blood Urea Nitrogen 26 mg/dL (9-23); Calcium 8.4 mg/dL (8.3-10.6); Calcium (Corrected) 9.2 mg/dL (8.5-10.1); Carbon Dioxide 26.8 mMol/L (20.0-31.0); Chloride 106 mMol/L (98-107); Creatinine (Component) 0.7 mg/dL (0.6-1.3); Estimated Creatinine Clearance 90.9 mL/min (>60); Globulin 2.6 gm/dL (2.3-3.5); Glucose 91 mg/dL (74-106); Magnesium 1.9 mg/dL (1.6-2.6); Osmolality,Calculated 282 (275-295); Phosphorous 3.2 mg/dL (2.4-5.1); Potassium 4.4 mMol/L (3.4-5.1); Sodium 139 mMol/L (136-145); Total Protein 5.6 gm/dL (5.7-8.2); eGFR > 60 See Note
[2024-03-07] MEDS: ASCORBIC ACID 250 MG TABLET 500 MG PO ×2 (08:11→20:04)
[2024-03-07] MEDS: ZINC SULFATE 220 MG CAPSULE PO (08:11)
[2024-03-07] MEDS: cefTRIAXone/D5w 1gm IV premix 50 ML IV (08:12)
[2024-03-07] MEDS: SODIUM CHLORIDE 0.9% 500 ML 500 ML 999 ML IV ×2 (08:23→09:19)
[2024-03-07] MEDS: Magnesium Sulfate 1 gm Ivpb 1 GM/100 ML BAG IV (09:19)
[2024-03-07] MEDS: DOXYCYCLINE 100 MG TABLET PO ×2 (09:19→20:04)
--- NOTE | 2024-03-07 10:51 | ESPR_ITS ---
<Statement entered by Harry Lim MD - 03/07/24 16:44> Patient was seen and examined at the bedside. Patient has been running low on his blood pressure and reported to have abdominal discomfort as he did not pass a bowel movement from couple of days. Patient is getting dressing changes daily post BKA. We tried contacting patient's on the phone call as she was waiting for an update however we could not get a hold on her today. Patient was given fluid bolus which improved the blood pressure. Labs are unremarkable. Patient is currently on IV ceftriaxone and doxycycline sensitive to wound cultures. We ordered an MRI for bowel movement as patient did not get a bowel movement with lactulose and MiraLAX. Likely continue with current management. All labs and orders were reviewed. I saw and examined the patient, and I agree with current management stated by Dr Bishnu MD,PGY1. Plan of care was discussed with the attending physician and resident physician. Disclaimer: Despite multiple revisions, due to the dictation software being used, the document bellow may not be free of grammatical errors including phonetic/typographic errors. However, this does not deter from our commitment to providing health care in the patient's best interest in mind. Dr. Carina MD, PGY 2 Documentation for date of: 03/07/24 Subjective Subjective Interval history: 03/07: NAEO. BP soft this morning 98/52. Given NS bolus. Holding tamsulosin. WBC downtrending. CBC stable. Electrolytes stable. Patient resting comfortably, states he does have pain but much better than before. Spoke to Dr. Randhawa, states that he will get dressing change tomorrow and get patient fitted for prosthesis. Patient states that he has had a bowel movement, but none recorded by nurse. KUB shows constipation pattern. Adjusting bowel regimen. Exam Vital Signs Temp Pulse Resp BP Pulse Ox O2 Del Method O2 Flow Rate 97.8 F 64 17 98/52 L 95 Room Air 2 03/07/24 08:00 03/07/24 08:00 03/07/24 08:00 03/07/24 08:00 03/07/24 08:00 03/07/24 08:00 03/04/24 14:59 Narrative Exam Constitutional: Patient was mildly anxious, AOx3 saturating well on room air. Eyes: EOMI, no scleral icterus ENMT: Moist Mucous Membranes CVS: RRR, S1 and S2 present, no murmurs, rubs or gallops . RESP: CTAB, no increased work of breathing, no rales, rhonchi or wheezing, on room air GI: Soft, nondistended, nontender MSK: Below-knee amputation left leg. Skin: Warm to touch, Dry. Psych: (AAO) x3 . Appropriate mood and affect. Objective Labs 03/07/24 05:13 03/07/24 05:13 Labs: Laboratory Results - last 24 hr 03/07/24 05:13 WBC 11.4 H RBC 3.76 L Hgb 8.8 L Hct 27.7 L MCV 74 L MCH 23.4 L MCHC 31.8 RDW Std Deviation 53.4 H Plt Count 442 H Neut % (Auto) 74 Lymph % (Auto) 12 [place] % (Auto) 10 Eos % (Auto) 3 Baso % (Auto) 1 Neut # (Auto) 8.5 H Lymph # (Auto) 1.4 [place] # (Auto) 1.1 H Eos # (Auto) 0.3 Baso # (Auto) 0.1 Immature Gran # (Auto) 0.06 H Absolute Nucleated RBC 0.00 Immature Gran % 1 H Nucleated RBC % 0 Sodium 139 Potassium 4.4 Chloride 106 Carbon Dioxide 26.8 Anion Gap 6 L BUN 26 H Creatinine 0.7 Estim Creat Clear Calc 90.9 eGFR > 60 BUN/Creatinine Ratio 37 H Glucose 91 Calculated Osmolality 282 Calcium 8.4 Corrected Calcium 9.2 Phosphorus 3.2 Magnesium 1.9 Total Bilirubin 0.2 L AST 28 ALT 36 Alkaline Phosphatase 81 Total Protein 5.6 L Albumin 3.0 L Globulin 2.6 Albumin/Globulin Ratio 1.2 Quality Measures Quality Measures VTE prophylaxis Advance care planning discussed with:: patient Assessment & Plan Assessment Current Active Medications: Generic Name Dose Route Start Last Admin Trade Name Freq PRN Reason Stop Dose Admin Acetaminophen 650 mg 03/01/24 14:19 Acetaminophen 325 Mg Tablet PO 03/31/24 14:18 Q6H PRN Fever >101.5 Acetaminophen 650 mg 03/01/24 14:19 03/05/24 18:21 Acetaminophen 325 Mg Tablet PO 03/31/24 14:18 650 mg Q6H PRN Administration PAIN SCALE 1-3 (mild Hydrocodone Bitart/Acetaminophen 1 tab 03/03/24 21:21 03/07/24 03:50 Hydrocodone/Apap 7.5/325 Tablet PO 03/08/24 21:20 1 tab Q6HR PRN Administration Moderate Pain 4-7 Ascorbic Acid 500 mg 03/03/24 21:00 03/07/24 08:11 Ascorbic Acid 250 Mg Tablet PO 04/02/24 20:59 500 mg BID YARI Administration Atorvastatin Calcium 80 mg 03/01/24 21:00 03/06/24 20:53 Atorvastatin Calcium 20 Mg Tablet PO 03/31/24 20:59 80 mg QPM YARI Administration Docusate Sodium 100 mg 03/04/24 21:00 03/07/24 08:12 Docusate Sod 100 Mg Capsule PO 04/03/24 20:59 Not Given BID YARI Protocol Doxycycline Hyclate 100 mg 03/07/24 09:00 03/07/24 09:19 Doxycycline 100 Mg Tablet PO 03/14/24 08:59 100 mg BID YARI Administration Ceftriaxone Sodium/Dextrose 50 mls @ 100 mls/hr 03/07/24 09:00 03/07/24 08:42 Rocephin/D5w 1gm Iv Premix IV 03/14/24 08:59 Infused QDAY YARI Infusion Metoclopramide HCl 10 mg 03/05/24 10:51 Metoclopramide 5 Mg Tablet PO 04/04/24 10:50 Q6HR PRN NAUSEA OR VOMITING Morphine Sulfate 2 mg 03/05/24 11:37 03/06/24 23:46 Morphine Sulf Inj 10 Mg/Ml Vial IVP 03/09/24 15:18 2 mg Q2H PRN Administration PAIN SCALE 8-10 (Severe Ondansetron HCl 4 mg 03/01/24 14:19 03/05/24 04:54 Ondansetron Inj 2 Mg/Ml Inj 2 Ml IV 03/31/24 14:18 4 mg Q6H PRN Administration NAUSEA OR VOMITING Protocol Polyethylene Glycol 17 gm 03/03/24 10:08 Polyethylene Glycol 17 Gm Packet PO 03/31/24 14:51 Q6HR PRN CONSTIPATION Protocol Sennosides 1 tab 03/01/24 14:50 Senna Tablet PO 03/31/24 14:49 QDAY PRN CONSTIPATION Protocol Tamsulosin HCl 0.4 mg 03/01/24 21:00 03/06/24 20:54 Tamsulosin Hcl 0.4 Mg Capsule PO 03/31/24 20:59 0.4 mg HS YARI Administration Zinc Sulfate 220 mg 03/04/24 09:00 03/07/24 08:11 Zinc Sulfate 220 Mg Capsule PO 04/03/24 08:59 220 mg QDAY YARI Administration Plan Patient is a 73-year-old male with past medical history of CVA, CHF stage I diastolic dysfunction, 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 Patient admitted for management of osteomyelitis and below- knee amputation. # Osteomyelitis of first metatarsal, left foot # Below-knee amputation status post osteomyelitis first metatarsal, left foot X-ray foot shows osteomyelitis of first metatarsal, peroneal soft tissue swelling around dorsum of foot WBC elevated at 14.9 Patient given 1 dose of Zosyn in the emergency room Dr Randhawa suggest BKA, however patient is persistent about contacting Dr. Caldwell for his opinion. Wound Gram stain negative-pending final culture Blood cultures -48 hours Wound culture grows gram-positive cocci and gram-negative aj, appears to be mixed ashley MRSA negative Vancomycin and cefepime on from 03/01 to 03/06 -De-escalating to ceftriaxone and doxycycline 03/06?. -pain management as needed -Wound care -Follow-up on morning labs -Dressings in place, Dr Randhaaw to remove on 03/08 and to fit patient for prosthesis #Severe peripheral artery disease status post percutaneous transluminal angioplasty #Chronic limb ischemia #Gangrene of left lower extremity digits #History of first metatarsal amputation, left foot # Post BKA Patient has history of peripheral artery disease status post CNC MILL PROGRAMMER. First metatarsal of left foot amputated by Dr Randhawa 3 months ago. Patient at that time very adamant on not having leg amputated. 5 weeks ago had another CNC MILL PROGRAMMER performed by Dr. Caldwell. Patient states that his wound and gangrene has been getting worse since then. See physical exam description for more detailed description of wound CTA: occlusion proximal right posterior tibial artery 60% stenosis left superficial femoral artery stent in its midportion No contrast opacification of the distal left popliteal stent Occlusion proximal left anterior tibial artery, there is reconstitution of the mid and distal anterior tibial artery Occlusion of the proximal left posterior tibial and main continuation artery trunk BKA performed by Dr. Randhawa on 03/04 -Wound care - Pain control with [place], morphine - Physical therapy when appropriate #Hypotension, improving 98/52 this AM -Bolused 500cc, improved after -Pain medications were adjusted. -Will continue to trend #Constipation #Abdominal Pain Patient states he has been having bowel movements, however nurses stating he has not had a bowel movements in several days KUB shows extensive stool burden without obstruction - Lactulose 20 gm one dose - Miralax and Senna Qday - Simethicone x 1 - PPI for reflux #Benign prostatic hyperplasia -Home tamsulosin 0.4 mg Holding dosage due to hypotension #Hypertension BPs soft today, holding home dose - Will restart patients home metoprolol 25 PO Qday as pressures allow #Hyperlipidemia - Restarted patient's home dose of atorvastatin 80 mg Health maintenance Diet: Cardiac Diet, GI: PPI DVT:Heparin subcut Persaud: None Lines: Peripheral Dispo: Med Tele Code: Conditional: Patient is accepting of chest compressions, but is DNI- DO NOT INTUBATE Disposition: Pending dressing change, prosthesis, surgery recommendations Plan of care discussed with attending physician, Dr. Mel Bahena DO PGY1 Anesthesiology Attending Provider Attestation/Addendum I have discussed and was present for the essential components of the history, physical examination, diagnosis, and treatment plan with the resident. I agree with the patient's care as documented by the resident and amended herein by me. Juan José Leal DO.
--- NOTE | 2024-03-07 11:40 | XR_ITS ---
Examination: Abdomen AP single view Technique: AP portable supine abdomen, single view Exam date and time: March 07, 2024 1217 hours INDICATIONS: Abdominal distention today. FINDINGS: Large amounts of stool throughout the colon No obstruction No free air Prominent osteopenia IMPRESSION: Large amounts of stool throughout the colon
[2024-03-07] MEDS: PANTOPRAZOLE 40 MG TABLET PO (12:02)
[2024-03-07] MEDS: POLYETHYLENE GLYCOL 17 GM PACKET PO (12:04)
--- NOTE | 2024-03-07 12:13 | PC.SS ---
SS follow up note; SS attempted to contact Mayra from [employer] in regards to patients medicare days available. SS left VM with contact information.
--- NOTE | 2024-03-07 12:18 | PC.SS ---
SS follow up note; SS contacted patient's , Cherelle in regards to choice of facility and she reported she would like more time to decide on facilities. SS informed her that patient might possibly discharge tomorrow. SS will follow up with patient's in a few hrs.
[2024-03-07] MEDS: NALOXEGOL OXALATE 25 MG TABLET (NON-FORMULARY) 12.5 MG PO (12:26)
[2024-03-07] MEDS: SENNA TABLET 1 TAB PO (12:26)
[2024-03-07] MEDS: LACTULOSE SYRUP 20 GM/30 ML UDC PO (14:29)
[2024-03-07] MEDS: MORPHINE SULF INJ 10 MG/ML VIAL 2 MG IVP ×3 (17:58→23:39)
[2024-03-07] MEDS: DOCUSATE SOD 100 MG CAPSULE PO (20:03)
[2024-03-07] MEDS: ATORVASTATIN CALCIUM 20 MG TABLET 80 MG PO (20:04)
[2024-03-07] MEDS: ACETAMINOPHEN 325 MG TABLET 650 MG PO (23:39)
[2024-03-08] VITALS (8 sets, daily range): BP systolic 91–114; BP diastolic 44–60; PULSE 57–95; RESP 17–20; TEMP 36.3–38.9; O2SAT 90–97; BMI 26.9
--- NOTE | 2024-03-08 00:47 | PC.NURSE ---
Notify of the pt's temperature.
[2024-03-08 05:43] LABS: Basophils # (Auto) 0.1 Thou/mm3 (0.0-0.2); Basophils % (Auto) 0 % (0-2.5); Eosinophils # (Auto) 0.1 Thou/mm3 (0.0-0.5); Eosinophils % (Auto) 0 % (0-10); Hematocrit 29.5 % (41.0-53.0); Hemoglobin 9.4 g/dL (13.5-16.0); Immature Granulocytes % (Auto) 1 % (0-0); Lymphocytes # (Auto) 1.1 Thou/mm3 (1.0-4.8); Lymphocytes % (Auto) 4 % (10-50); Mean Corpuscular HGB Conc 31.9 g/dl (31.0-37.0); Mean Corpuscular Hemoglobin 23.7 pg (25.0-35.0); Mean Corpuscular Volume 74 fL (80-100); Monocytes # (Auto) 1.9 Thou/mm3 (0.0-0.8); Monocytes % (Auto) 7 % (0-12); Neutrophils # (Auto) 22.7 Thou/mm3 (1.8-7.7); Neutrophils % (Auto) 87 % (37-80); Nucleated Red Blood Cell % 0 /100 WBC (0); Platelet Count 309 Thou/mm3 (140-440); RDW Standard Deviation 53.5 fL (35.1-43.9); Red Blood Count 3.97 Miln/mm3 (4.50-5.90)
[2024-03-08 06:27] LABS: Alanine Aminotransferase 33 U/L (10-49); Albumin, Serum 3.2 gm/dL (3.4-4.8); Albumin/Globulin Ratio 1.3 (1.2-2.2); Alkaline Phosphatase 86 U/L (46-116); Anion Gap 10 (7-16); Aspartate Amino Transferase 20 U/L (0-34); BUN/Creatinine Ratio 35 Ratio (12-20); Bilirubin,Total 0.4 mg/dL (0.3-1.2); Blood Urea Nitrogen 28 mg/dL (9-23); Calcium 8.4 mg/dL (8.3-10.6); Carbon Dioxide 23.5 mMol/L (20.0-31.0); Chloride 105 mMol/L (98-107); Creatinine (Component) 0.8 mg/dL (0.6-1.3); Estimated Creatinine Clearance 86.1 mL/min (>60); Globulin 2.5 gm/dL (2.3-3.5); Glucose 100 mg/dL (74-106); Magnesium 1.8 mg/dL (1.6-2.6); Osmolality,Calculated 281 (275-295); Phosphorous 3.8 mg/dL (2.4-5.1); Potassium 3.9 mMol/L (3.4-5.1); Sodium 138 mMol/L (136-145); Total Protein 5.7 gm/dL (5.7-8.2); eGFR > 60 See Note
--- NOTE | 2024-03-08 08:09 | PC.SS ---
SS follow up: spoke with Esha at [facility], she confirms they are able to accept the patient as senior living as patient used all of his Medicare days at previous SNF. Notified Esha patient is a possible discharge today and she is agreeable with accepting the patient.
[2024-03-08] MEDS: ASCORBIC ACID 250 MG TABLET 500 MG PO ×2 (09:06→21:33)
[2024-03-08] MEDS: PANTOPRAZOLE 40 MG TABLET PO (09:06)
[2024-03-08] MEDS: ZINC SULFATE 220 MG CAPSULE PO (09:06)
[2024-03-08] MEDS: Magnesium Sulfate 4 GM Ivpb 4 GM/50 ML BAG IV (09:12)
[2024-03-08] MEDS: metroNIDAZOLE 250 MG TABLET 500 MG PO ×3 (09:21→21:33)
--- NOTE | 2024-03-08 09:42 | ESPR_ITS ---
Documentation for date of: 03/08/24 Subjective Subjective Narrative: Patient is seen and examined. He appears more lethargic this morning Exam Vital Signs Temp Pulse Resp BP Pulse Ox O2 Del Method O2 Flow Rate 97.8 F 65 18 96/52 L 93 L Nasal Cannula 2 03/08/24 08:00 03/08/24 08:00 03/08/24 08:00 03/08/24 08:00 03/08/24 08:00 03/08/24 08:00 03/08/24 08:00 Constitutional Constitutional: no acute distress Routine Extremities Exam Comments: Left BKA stump dressings removed, incision is clean, dry and intact Assessment & Plan Assessment Additional comments: Postop day #4 status post left below the knee amputation Plan Will contact [employer] Designer prosthesis to provide special education resource room teacher and stump protector Procedures Procedures Left below the knee amputation
[2024-03-08] MEDS: CEFEPIME INJ 2 GM in SODIUM CHLORIDE 0.9% 50 ML IV ×3 (09:55→21:33)
[2024-03-08] MEDS: VANCOMYCIN/NS 1 GM IVPB 200 ML IV ×2 (10:19→22:14)
[2024-03-08] MEDS: RINGERS LACTATED 1000 ML 1,000 ML 999 ML IV (12:15)
--- NOTE | 2024-03-08 13:34 | ESPR_ITS ---
<Statement entered by Harry Lim MD - 03/08/24 14:19> Patient was seen and examined at the bedside. This morning, patient was more lethargic and was having soft blood pressure. Labs showed elevation in white count to 26. Patient is postop day 2 post BKA. He has been having multiple bowel movements after enema therefore bowel regimen was held. Patient's was updated regarding the plan. Surgeon recommended to open the dressing wound appeared clean and dry however it was foul smelling. Repeat blood cultures were ordered as patient had a fever spike overnight. Patient was escalated on antibiotics on vancomycin cefepime and Flagyl. Kidney functions remained stable. Patient was given 1.5 L bolus of fluids for his high blood pressure and pain management was optimized with [place] 7/325 and morphine was reduced to 0.5. Will continue with current management. All labs and orders were reviewed. I saw and examined the patient, and I agree with current management stated by Dr Bishnu MD,PGY1. Plan of care was discussed with the attending physician and resident physician. Disclaimer: Despite multiple revisions, due to the dictation software being used, the document bellow may not be free of grammatical errors including phonetic/typographic errors. However, this does not deter from our commitment to providing health care in the patient's best interest in mind. Dr. Carina MD, PGY 2 Documentation for date of: 03/08/24 Subjective Subjective Interval history: 03/08: Overnight spiked a fever of 102. Given Tylenol, repeat temperature 99. Morning blood pressure continues to be soft 114/55. Rest of vital signs stable, saturating well. Afebrile on exam this a.m. Labs significant for white count of 26 from 11. Electrolytes normal. Blood sugar normal. Urine output appears to be 50 cc recorded, however there are multiple unmeasured voids. Patient also had multiple bowel movements throughout the day, soft. On physical exam in a.m. patient mentating well. Wound dressing is off, site looks clean dry and intact. No erythema or purulent drainage noted. Repeat blood pressure 91/44. Total of 1.5 L fluids given. Broadened antibiotic coverage to vancomycin, cefepime, Flagyl. Adjusting maintenance fluids. Sent repeat blood cultures. Will continuously reassess throughout the day. Dr. Randhawa per note states that he will contact anger energy conservation representative for prosthesis and stump protector. Exam Vital Signs Temp Pulse Resp BP Pulse Ox O2 Del Method O2 Flow Rate 97.3 F 66 20 91/44 L 93 L Nasal Cannula 2 03/08/24 12:00 03/08/24 12:00 03/08/24 12:00 03/08/24 12:00 03/08/24 12:00 03/08/24 12:00 03/08/24 12:00 Narrative Exam Constitutional: AOx3 saturating well on room air. Eyes: EOMI, no scleral icterus ENMT: Moist Mucous Membranes CVS: RRR, S1 and S2 present, no murmurs, rubs or gallops . RESP: CTAB, no increased work of breathing, no rales, rhonchi or wheezing, on room air GI: Soft, nondistended, nontender MSK: Below-knee amputation left leg. Skin: Warm to touch, Dry. Psych: (AAO) x3 . Appropriate mood and affect. Objective Labs 03/08/24 05:20 03/08/24 05:20 Labs: Laboratory Results - last 24 hr 03/03/24 03/08/24 16:45 05:20 WBC 26.0 H D RBC 3.97 L Hgb 9.4 L Hct 29.5 L MCV 74 L MCH 23.7 L MCHC 31.9 RDW Std Deviation 53.5 H Plt Count 309 D Neut % (Auto) 87 H Lymph % (Auto) 4 L [place] % (Auto) 7 Eos % (Auto) 0 Baso % (Auto) 0 Neut # (Auto) 22.7 H Lymph # (Auto) 1.1 [place] # (Auto) 1.9 H Eos # (Auto) 0.1 Baso # (Auto) 0.1 Immature Gran # (Auto) 0.20 H Absolute Nucleated RBC 0.00 Immature Gran % 1 H Nucleated RBC % 0 Sodium 138 Potassium 3.9 D Chloride 105 Carbon Dioxide 23.5 Anion Gap 10 BUN 28 H Creatinine 0.8 Estim Creat Clear Calc 86.1 eGFR > 60 BUN/Creatinine Ratio 35 H Glucose 100 Calculated Osmolality 281 Calcium 8.4 Corrected Calcium 9.0 Phosphorus 3.8 Magnesium 1.8 Total Bilirubin 0.4 AST 20 ALT 33 Alkaline Phosphatase 86 Total Protein 5.7 Albumin 3.2 L Globulin 2.5 Albumin/Globulin Ratio 1.3 Blood Type A Positive Antibody Screen NEGATIVE Crossmatch See Detail Blood Bank Wristband ID Yes Quality Measures Quality Measures VTE prophylaxis Advance care planning discussed with:: other Assessment & Plan Assessment Current Active Medications: Generic Name Dose Route Start Last Admin Trade Name Freq PRN Reason Stop Dose Admin Acetaminophen 650 mg 03/01/24 14:19 03/07/24 23:39 Acetaminophen 325 Mg Tablet PO 03/31/24 14:18 650 mg Q6H PRN Administration Fever >101.5 Acetaminophen 650 mg 03/01/24 14:19 03/05/24 18:21 Acetaminophen 325 Mg Tablet PO 03/31/24 14:18 650 mg Q6H PRN Administration PAIN SCALE 1-3 (mild Hydrocodone Bitart/Acetaminophen 1 tab 03/03/24 21:21 03/07/24 19:37 Hydrocodone/Apap 7.5/325 Tablet PO 03/08/24 21:20 1 tab Q6HR PRN Administration Moderate Pain 4-7 Ascorbic Acid 500 mg 03/03/24 21:00 03/08/24 09:06 Ascorbic Acid 250 Mg Tablet PO 04/02/24 20:59 500 mg BID YARI Administration Atorvastatin Calcium 80 mg 03/01/24 21:00 03/07/24 20:04 Atorvastatin Calcium 20 Mg Tablet PO 03/31/24 20:59 80 mg QPM YARI Administration Cefepime HCl 2 gm/ Sodium 50 mls @ 100 mls/hr 03/08/24 08:55 03/08/24 10:25 Chloride IV 03/15/24 08:54 Infused Q8HR YARI Infusion Vancomycin/Sodium Chloride 200 mls @ 120 mls/hr 03/08/24 10:00 03/08/24 10:19 Vancomycin/Ns 1 Gm Ivpb IV 03/15/24 09:59 120 mls/hr BID@1000,2200 YARI Administration Protocol Metoclopramide HCl 10 mg 03/05/24 10:51 Metoclopramide 5 Mg Tablet PO 04/04/24 10:50 Q6HR PRN NAUSEA OR VOMITING Metronidazole 500 mg 03/08/24 09:00 03/08/24 09:21 Metronidazole 250 Mg Tablet PO 03/15/24 08:59 500 mg TID YARI Administration Morphine Sulfate 0.5 mg 03/08/24 10:47 Morphine Sulf Inj 10 Mg/Ml Vial IVP 03/09/24 15:18 Q2H PRN PAIN SCALE 8-10 (Severe Ondansetron HCl 4 mg 03/01/24 14:19 03/05/24 04:54 Ondansetron Inj 2 Mg/Ml Inj 2 Ml IV 03/31/24 14:18 4 mg Q6H PRN Administration NAUSEA OR VOMITING Protocol Pantoprazole Sodium 40 mg 03/07/24 11:45 03/08/24 09:06 Pantoprazole 40 Mg Tablet PO 04/06/24 11:44 40 mg QDAY YARI Administration Pharmacy Consult 1 each 03/08/24 09:00 Vancomycin Pharmacy To Dose 1 Each Each IV 04/07/24 08:59 QDAY PRN CONSULT Tamsulosin HCl 0.4 mg 03/01/24 21:00 03/06/24 20:54 Tamsulosin Hcl 0.4 Mg Capsule PO 03/31/24 20:59 0.4 mg HS YARI Administration Zinc Sulfate 220 mg 03/04/24 09:00 03/08/24 09:06 Zinc Sulfate 220 Mg Capsule PO 04/03/24 08:59 220 mg QDAY YARI Administration Plan Patient is a 73-year-old male with past medical history of CVA, CHF stage I diastolic dysfunction, PAD status post AERIAL HURRICANE HUNTER, CVI, hypertension, benign prostatic hyperplasia, prostate cancer status post external beam proton radiation, smoking history, hyperlipidemia presented with chief complaint of non-healing lower left extremity wound. Patient admitted for management of osteomyelitis and below- knee amputation. #Hypotension #Fever, appears to have resolved #Leukocytosis 114/55 blood pressure this A.M. 14: Overnight spiked a fever of 102. Given 1 dose of acetaminophen, afebrile throughout this a.m. Morning labs show white count of 26. Blood pressures continued to be soft. Respiratory rate normal. Heart rate normal. -Bolused 1.5 L today, pressures slightly improved. -Running maintenance normal saline at 80 -Increased antibiotic coverage with vancomycin, cefepime, Flagyl ?Repeat blood cultures ordered, pending -Pain medications were adjusted. # Osteomyelitis of first metatarsal, left foot # Below-knee amputation status post osteomyelitis first metatarsal, left foot X-ray foot shows osteomyelitis of first metatarsal, peroneal soft tissue swelling around dorsum of foot Blood cultures -48 hours Wound culture grew Staph aureus and Proteus. MRSA negative Vancomycin and cefepime on from 03/01 to 1/12 ceftriaxone and doxycycline 03/06?03/08 03/08: Overnight spiked a fever of 102. Morning labs show white count of 26. Increasing antibiotic coverage -Vancomycin 03/08- -cefepime 03/08? -Flagyl 03/08? -pain management as needed -Wound care -Follow-up on morning labs -Dressings in place, Dr Randhawa to remove on 03/08 and to fit patient for prosthesis #Severe peripheral artery disease status post percutaneous transluminal angioplasty #Chronic limb ischemia #Gangrene of left lower extremity digits #History of first metatarsal amputation, left foot # Post BKA Patient has history of peripheral artery disease status post AERIAL HURRICANE HUNTER. First metatarsal of left foot amputated by Dr Randhawa 3 months ago. Patient at that time very adamant on not having leg amputated. 5 weeks ago had another AERIAL HURRICANE HUNTER performed by Dr. Caldwell. Patient states that his wound and gangrene has been getting worse since then. See physical exam description for more detailed description of wound CTA: occlusion proximal right posterior tibial artery 60% stenosis left superficial femoral artery stent in its midportion No contrast opacification of the distal left popliteal stent Occlusion proximal left anterior tibial artery, there is reconstitution of the mid and distal anterior tibial artery Occlusion of the proximal left posterior tibial and main continuation artery trunk BKA performed by Dr. Randhawa on 03/04 -Wound care - Pain control with [place], morphine - Physical therapy when appropriate #Constipation- resolved #Abdominal Pain-resolved Patient states he has been having bowel movements, however nurses stating he has not had a bowel movements in several days KUB shows extensive stool burden without obstruction Lactulose 20 gm one dose Miralax and Senna Qday Simethicone x 1 PPI for reflux 03/08: - holding due to multiple bowel movements, clearance of abdominal pain/constipation #Benign prostatic hyperplasia -Home tamsulosin 0.4 mg Holding dosage due to hypotension #Hypertension BPs soft today, holding home dose - Will restart patients home metoprolol 25 PO Qday as pressures allow #Hyperlipidemia - Restarted patient's home dose of atorvastatin 80 mg Health maintenance Diet: Cardiac Diet, GI: PPI DVT:Heparin subcut Persaud: None Lines: Peripheral Code: Conditional: Patient is accepting of chest compressions, but is DNI- DO NOT INTUBATE Disposition: Pending blood cultures, improvement of hypotension, surgery recommendations. Plan of care discussed with attending physician, Dr. Leal and senior resident on service Bishnu Bahena DO PGY1 Anesthesiology Attending Provider Attestation/Addendum I have discussed and was present for the essential components of the history, physical examination, diagnosis, and treatment plan with the resident. I agree with the patient's care as documented by the resident and amended herein by me. Juan José Leal DO. Patient seen and evaluated this AM. No acute events overnight however blood pressure soft, 96/52 mmHg overnight. Temperature 102.1 overnight. 3 BMs recorded. Significant labs include an uptrending WBC, 26 today, stable hemoglobin at 9.4, renal function within normal limits. Blood cultures reordered, of also broaden out the antibiotics to cefepime vancomycin and Flagyl considering fever and low blood pressure. Surgery consulted, Passenger Service Agent prosthesis ordered, appreciate recommendations. Will continue to monitor closely Although this document has been carefully reviewed, there may still be some phonetic and other typographical errors. These errors are purely grammatical due to imperfections in the software program and should not be construed in any way to compromise the substance of the patient's medical care during this visit.
[2024-03-08] MEDS: SODIUM CHLORIDE 0.9% 1000 ML 1,000 ML 80 ML IV (14:14)
[2024-03-08] MEDS: ATORVASTATIN CALCIUM 20 MG TABLET 80 MG PO (21:32)
[2024-03-08] MEDS: MELATONIN 3 MG TABLET PO (22:14)
[2024-03-09] VITALS (7 sets, daily range): BP systolic 96–122; BP diastolic 46–68; PULSE 56–69; RESP 16–21; TEMP 36.2–36.8; O2SAT 93–98
--- NOTE | 2024-03-09 04:34 | PC.NURSE ---
called Dr. Leroy regarding patient's HR went down to the 35 for a few seconds, did not sustain, rhythm also shows a.fib.
[2024-03-09] MEDS: CEFEPIME INJ 2 GM in SODIUM CHLORIDE 0.9% 50 ML IV ×3 (05:31→21:17)
[2024-03-09] MEDS: metroNIDAZOLE 250 MG TABLET 500 MG PO ×3 (05:31→21:15)
[2024-03-09] MEDS: SODIUM CHLORIDE 0.9% 1000 ML 1,000 ML 80 ML IV (05:33)
[2024-03-09 05:43] LABS: Basophils # (Auto) 0.1 Thou/mm3 (0.0-0.2); Basophils % (Auto) 0 % (0-2.5); Eosinophils # (Auto) 0.3 Thou/mm3 (0.0-0.5); Eosinophils % (Auto) 2 % (0-10); Hematocrit 26.3 % (41.0-53.0); Immature Granulocytes % (Auto) 1 % (0-0); Immature Granulocytes Auto 0.11 Thou/mm3 (0.00-0.00); Lymphocytes # (Auto) 1.1 Thou/mm3 (1.0-4.8); Lymphocytes % (Auto) 7 % (10-50); Mean Corpuscular HGB Conc 31.9 g/dl (31.0-37.0); Mean Corpuscular Hemoglobin 23.3 pg (25.0-35.0); Mean Corpuscular Volume 73 fL (80-100); Monocytes # (Auto) 0.9 Thou/mm3 (0.0-0.8); Monocytes % (Auto) 5 % (0-12); Neutrophils # (Auto) 14.2 Thou/mm3 (1.8-7.7); Neutrophils % (Auto) 85 % (37-80); Nucleated Red Blood Cell % 0 /100 WBC (0); Platelet Count 322 Thou/mm3 (140-440); Red Blood Count 3.61 Miln/mm3 (4.50-5.90); White Blood Count 16.6 Thou/mm3 (3.8-10.6)
[2024-03-09 05:49] LABS: Hemoglobin 8.4 g/dL (13.5-16.0)
[2024-03-09 06:39] LABS: Alanine Aminotransferase 35 U/L (10-49); Albumin/Globulin Ratio 1.3 (1.2-2.2); Alkaline Phosphatase 82 U/L (46-116); Anion Gap 8 (7-16); Aspartate Amino Transferase 25 U/L (0-34); BUN/Creatinine Ratio 47 Ratio (12-20); Bilirubin,Total 0.2 mg/dL (0.3-1.2); Blood Urea Nitrogen 28 mg/dL (9-23); Calcium 8.1 mg/dL (8.3-10.6); Calcium (Corrected) 8.9 mg/dL (8.5-10.1); Carbon Dioxide 24.6 mMol/L (20.0-31.0); Chloride 106 mMol/L (98-107); Creatinine (Component) 0.6 mg/dL (0.6-1.3); Estimated Creatinine Clearance 116.6 mL/min (>60); Globulin 2.3 gm/dL (2.3-3.5); Glucose 136 mg/dL (74-106); Osmolality,Calculated 285 (275-295); Phosphorous 2.4 mg/dL (2.4-5.1); Potassium 3.8 mMol/L (3.4-5.1); Sodium 139 mMol/L (136-145); Total Protein 5.3 gm/dL (5.7-8.2); eGFR > 60 See Note
[2024-03-09] MEDS: ASCORBIC ACID 250 MG TABLET 500 MG PO ×2 (09:39→21:15)
[2024-03-09] MEDS: PANTOPRAZOLE 40 MG TABLET PO (09:40)
[2024-03-09] MEDS: ZINC SULFATE 220 MG CAPSULE PO (09:40)
[2024-03-09] MEDS: VANCOMYCIN/NS 1 GM IVPB 200 ML IV (09:41)
--- NOTE | 2024-03-09 10:38 | CHAP ---
Patient was sleeping. Prayed beside bed.
--- NOTE | 2024-03-09 14:32 | PC.SS ---
Rounding note: repeat cultures, pending surgery recommendations due to prosthesis from amputation.
--- NOTE | 2024-03-09 14:33 | ESPR_ITS ---
<Statement entered by Harry Lim MD - 03/09/24 14:50> Patient was seen and examined at the bedside this morning. Patient reported that his pain is under control. He denied having a bowel movement today. Repeat blood cultures are showing no growth for 24 hours. Surgery recommended to keep the patient until we get prosthesis for his extremity. Blood pressure this morning was improved since yesterday. White count improving today 16.6. Hemoglobin stable. Will continue with cefepime vancomycin and Flagyl and continue with wound care with dressing changes daily. All labs and orders were reviewed. I saw and examined the patient, and I agree with current management stated by Dr Bishnu DO,PGY1. Plan of care was discussed with the attending physician and resident physician. Disclaimer: Despite multiple revisions, due to the dictation software being used, the document bellow may not be free of grammatical errors including phonetic/typographic errors. However, this does not deter from our commitment to providing health care in the patient's best interest in mind. Dr. Carina MD, PGY 2 Documentation for date of: 03/09/24 Subjective Subjective Interval history: 03/08: Overnight spiked a fever of 102. Given Tylenol, repeat temperature 99. Morning blood pressure continues to be soft 114/55. Rest of vital signs stable, saturating well. Afebrile on exam this a.m. Labs significant for white count of 26 from 11. Electrolytes normal. Blood sugar normal. Urine output appears to be 50 cc recorded, however there are multiple unmeasured voids. Patient also had multiple bowel movements throughout the day, soft. On physical exam in a.m. patient mentating well. Wound dressing is off, site looks clean dry and intact. No erythema or purulent drainage noted. Repeat blood pressure 91/44. Total of 1.5 L fluids given. Broadened antibiotic coverage to vancomycin, cefepime, Flagyl. Adjusting maintenance fluids. Sent repeat blood cultures. Will continuously reassess throughout the day. Dr. Randhawa per note states that he will contact [employer] agency service representative for prosthesis and stump protector. 03/09:. No acute events overnight. Afebrile since that episode yesterday. Blood pressures appear adequate. WBC trending down from 26-16.6 hemoglobin slightly decreased, most likely dilutional. Will continue to trend. Electrolytes appear normal. Blood cultures negative after 24 hours. Patient denies any new symptoms, states that he is feeling little better. Will continue abx, monitor, trend symptoms. Exam Vital Signs Temp Pulse Resp BP Pulse Ox O2 Del Method O2 Flow Rate 97.8 F 61 17 122/68 96 Nasal Cannula 2 03/09/24 12:00 03/09/24 12:00 03/09/24 12:00 03/09/24 12:00 03/09/24 12:00 03/09/24 12:00 03/09/24 12:00 Narrative Exam Constitutional: AOx3 saturating well on nasal cannula. Eyes: EOMI, no scleral icterus ENMT: Moist Mucous Membranes CVS: RRR, S1 and S2 present, no murmurs, rubs or gallops . RESP: CTAB, no increased work of breathing, no rales, rhonchi or wheezing, on room air GI: Soft, nondistended, nontender MSK: Below-knee amputation left leg. Skin: Warm to touch, Dry. Psych: (AAO) x3 . Appropriate mood and affect. Objective Labs 03/09/24 05:13 03/09/24 05:13 Labs: Laboratory Results - last 24 hr 03/09/24 05:13 WBC 16.6 H D RBC 3.61 L Hgb 8.4 L Hct 26.3 L MCV 73 L MCH 23.3 L MCHC 31.9 RDW Std Deviation 53.0 H Plt Count 322 Neut % (Auto) 85 H Lymph % (Auto) 7 L [place] % (Auto) 5 Eos % (Auto) 2 Baso % (Auto) 0 Neut # (Auto) 14.2 H Lymph # (Auto) 1.1 [place] # (Auto) 0.9 H Eos # (Auto) 0.3 Baso # (Auto) 0.1 Immature Gran # (Auto) 0.11 H Absolute Nucleated RBC 0.00 Immature Gran % 1 H Nucleated RBC % 0 Sodium 139 Potassium 3.8 Chloride 106 Carbon Dioxide 24.6 Anion Gap 8 BUN 28 H Creatinine 0.6 Estim Creat Clear Calc 116.6 eGFR > 60 BUN/Creatinine Ratio 47 H Glucose 136 H Calculated Osmolality 285 Calcium 8.1 L Corrected Calcium 8.9 Phosphorus 2.4 Magnesium 2.0 Total Bilirubin 0.2 L AST 25 ALT 35 Alkaline Phosphatase 82 Total Protein 5.3 L Albumin 3.0 L Globulin 2.3 Albumin/Globulin Ratio 1.3 Quality Measures Quality Measures VTE prophylaxis Advance care planning discussed with:: patient Assessment & Plan Assessment Current Active Medications: Generic Name Dose Route Start Last Admin Trade Name Sofy PRN Reason Stop Dose Admin Acetaminophen 650 mg 03/01/24 14:19 03/07/24 23:39 Acetaminophen 325 Mg Tablet PO 03/31/24 14:18 650 mg Q6H PRN Administration Fever >101.5 Acetaminophen 650 mg 03/01/24 14:19 03/05/24 18:21 Acetaminophen 325 Mg Tablet PO 03/31/24 14:18 650 mg Q6H PRN Administration PAIN SCALE 1-3 (mild Ascorbic Acid 500 mg 03/03/24 21:00 03/09/24 09:39 Ascorbic Acid 250 Mg Tablet PO 04/02/24 20:59 500 mg BID YARI Administration Atorvastatin Calcium 80 mg 03/01/24 21:00 03/08/24 21:32 Atorvastatin Calcium 20 Mg Tablet PO 03/31/24 20:59 80 mg QPM YARI Administration Cefepime HCl 2 gm/ Sodium 50 mls @ 100 mls/hr 03/08/24 08:55 03/09/24 13:24 Chloride IV 03/15/24 08:54 100 mls/hr Q8HR YARI Administration Vancomycin/Sodium Chloride 200 mls @ 120 mls/hr 03/08/24 10:00 03/09/24 09:41 Vancomycin/Ns 1 Gm Ivpb IV 03/15/24 09:59 120 mls/hr BID@1000,2200 YARI Administration Protocol Melatonin 3 mg 03/08/24 21:52 03/08/24 22:14 Melatonin 3 Mg Tablet PO 04/08/24 20:59 3 mg HS PRN Administration Insomnia Metoclopramide HCl 10 mg 03/05/24 10:51 Metoclopramide 5 Mg Tablet PO 04/04/24 10:50 Q6HR PRN NAUSEA OR VOMITING Metronidazole 500 mg 03/08/24 09:00 03/09/24 13:22 Metronidazole 250 Mg Tablet PO 03/15/24 08:59 500 mg TID YARI Administration Morphine Sulfate 0.5 mg 03/08/24 14:19 Morphine Sulf Inj 10 Mg/Ml Vial IVP 03/13/24 10:46 Q4H PRN PAIN SCALE 8-10 (Severe Ondansetron HCl 4 mg 03/01/24 14:19 03/05/24 04:54 Ondansetron Inj 2 Mg/Ml Inj 2 Ml IV 03/31/24 14:18 4 mg Q6H PRN Administration NAUSEA OR VOMITING Protocol Pantoprazole Sodium 40 mg 03/07/24 11:45 03/09/24 09:40 Pantoprazole 40 Mg Tablet PO 04/06/24 11:44 40 mg QDAY YARI Administration Pharmacy Consult 1 each 03/08/24 09:00 Vancomycin Pharmacy To Dose 1 Each Each IV 04/07/24 08:59 QDAY PRN CONSULT Tamsulosin HCl 0.4 mg 03/01/24 21:00 03/06/24 20:54 Tamsulosin Hcl 0.4 Mg Capsule PO 03/31/24 20:59 0.4 mg HS YARI Administration Zinc Sulfate 220 mg 03/04/24 09:00 03/09/24 09:40 Zinc Sulfate 220 Mg Capsule PO 04/03/24 08:59 220 mg QDAY YARI Administration Plan Patient is a 73-year-old male with past medical history of CVA, CHF stage I diastolic dysfunction, PAD status post LICENSING ENGINEER, CVI, hypertension, benign prostatic hyperplasia, prostate cancer status post external beam proton radiation, smoking history, hyperlipidemia presented with chief complaint of non-healing lower left extremity wound. Patient admitted for management of osteomyelitis and below- knee amputation. #Hypotension #Fever, appears to have resolved #Leukocytosis Blood cultures negative after 24 hours drawn 03/08 03/08: Overnight spiked a fever of 102. Given 1 dose of acetaminophen, afebrile throughout this a.m. Morning labs show white count of 26. Blood pressures continued to be soft. Respiratory rate normal. Heart rate normal. 03/09: WBC downtrending, no fevers since. Vital signs stable, blood pressures appear normal at this time. -Maintenance 80 NS running until 12 PM -Vancomycin 03/08- -cefepime 03/08? -Flagyl 03/08? -Pain medications were adjusted to decrease incidence of hypotension. # Osteomyelitis of first metatarsal, left foot # Below-knee amputation status post osteomyelitis first metatarsal, left foot X-ray foot shows osteomyelitis of first metatarsal, peroneal soft tissue swelling around dorsum of foot Blood cultures -48 hours Wound culture grew Staph aureus and Proteus. MRSA negative Vancomycin and cefepime on from 03/01 to 03/06 ceftriaxone and doxycycline 03/06?03/08 Blood cultures negative after 24 hours drawn 03/08 03/08: Overnight spiked a fever of 102. Morning labs show white count of 26. Increasing antibiotic coverage -Vancomycin 03/08- -cefepime 03/08? -Flagyl 03/08? -pain management as needed -Wound care -Follow-up on morning labs -Wound appears clean dry and intact. Dr Randhawa to contact [employer] agency service representative for prosthesis fitting. #Severe peripheral artery disease status post percutaneous transluminal angioplasty #Chronic limb ischemia #Gangrene of left lower extremity digits #History of first metatarsal amputation, left foot # Post BKA Patient has history of peripheral artery disease status post LICENSING ENGINEER. First metatarsal of left foot amputated by Dr Randhawa 3 months ago. Patient at that time very adamant on not having leg amputated. 5 weeks ago had another LICENSING ENGINEER performed by Dr. Caldwell. Patient states that his wound and gangrene has been getting worse since then. See physical exam description for more detailed description of wound CTA: occlusion proximal right posterior tibial artery 60% stenosis left superficial femoral artery stent in its midportion No contrast opacification of the distal left popliteal stent Occlusion proximal left anterior tibial artery, there is reconstitution of the mid and distal anterior tibial artery Occlusion of the proximal left posterior tibial and main continuation artery trunk BKA performed by Dr. Randhawa on 03/04 -Wound care - Pain control with [place], morphine - Physical therapy daily #Constipation- resolved #Abdominal Pain-resolved Patient states he has been having bowel movements, however nurses stating he has not had a bowel movements in several days KUB shows extensive stool burden without obstruction Lactulose 20 gm one dose Miralax and Senna Qday Simethicone x 1 PPI for reflux 03/08: - holding due to multiple bowel movements, clearance of abdominal pain/constipation #Benign prostatic hyperplasia -Home tamsulosin 0.4 mg Holding dosage due to hypotension #Hypertension BPs soft today, holding home dose - Will restart patients home metoprolol 25 PO Qday as pressures allow #Hyperlipidemia - Restarted patient's home dose of atorvastatin 80 mg Health maintenance Diet: Cardiac Diet, GI: PPI DVT:Heparin subcut Persaud: None Lines: Peripheral Code: Conditional: Patient is accepting of chest compressions, but is DNI- DO NOT INTUBATE Disposition: Pending blood cultures, improvement of hypotension, surgery recommendations. Plan of care discussed with attending physician, Dr. Leal and senior resident on service Bishnu Bahena DO PGY1 Anesthesiology Attending Provider Attestation/Addendum I have discussed and was present for the essential components of the history, physical examination, diagnosis, and treatment plan with the resident. I agree with the patient's care as documented by the resident and amended herein by me. Juan José Leal DO. Patient seen and evaluated this AM. Patient now postop day 5 for left lower extremity BKA. Blood pressure soft overnight however vital signs stable, patient afebrile. WBC down trended to 16, hemoglobin low however stable. Blood cultures demonstrating NGTD. Will continue ceftriaxone vancomycin and Flagyl for now considering fevers and low blood pressure as well as uptrending white count on previous day. Prosthetic pending, likely discharge in 1 to 2 days pending specialist recommendations. Although this document has been carefully reviewed, there may still be some phonetic and other typographical errors. These errors are purely grammatical due to imperfections in the software program and should not be construed in any way to compromise the substance of the patient's medical care during this visit.
[2024-03-09] MEDS: MELATONIN 3 MG TABLET PO (21:16)
[2024-03-09] MEDS: ATORVASTATIN CALCIUM 20 MG TABLET 80 MG PO (21:16)
[2024-03-10] VITALS: BP 118/58; PULSE 60; PULSE 70; RESP 23; TEMP 36.9; O2SAT 94
[2024-03-10] MEDS: VANCOMYCIN/NS 1 GM IVPB 200 ML IV ×2 (00:16→09:51)
[2024-03-10] MEDS: MORPHINE SULF INJ 10 MG/ML VIAL IVP (00:25)
[2024-03-10 04:00] VITALS: BP 122/72; PULSE 61; PULSE 62; RESP 18; TEMP 36.8; O2SAT 97
[2024-03-10] MEDS: metroNIDAZOLE 250 MG TABLET 500 MG PO ×2 (05:54→13:48)
[2024-03-10] MEDS: CEFEPIME INJ 2 GM in SODIUM CHLORIDE 0.9% 50 ML IV ×2 (05:54→13:49)
[2024-03-10 06:00] VITALS: BMI 27.5
[2024-03-10 06:39] LABS: Basophils % (Auto) 0 % (0-2.5); Eosinophils # (Auto) 0.3 Thou/mm3 (0.0-0.5); Eosinophils % (Auto) 3 % (0-10); Hematocrit 27.9 % (41.0-53.0); Immature Granulocytes % (Auto) 1 % (0-0); Immature Granulocytes Auto 0.07 Thou/mm3 (0.00-0.00); Lymphocytes # (Auto) 1.2 Thou/mm3 (1.0-4.8); Lymphocytes % (Auto) 9 % (10-50); Mean Corpuscular HGB Conc 30.8 g/dl (31.0-37.0); Mean Corpuscular Hemoglobin 22.8 pg (25.0-35.0); Mean Corpuscular Volume 74 fL (80-100); Monocytes % (Auto) 8 % (0-12); Neutrophils # (Auto) 10.1 Thou/mm3 (1.8-7.7); Neutrophils % (Auto) 80 % (37-80); Nucleated Red Blood Cell % 0 /100 WBC (0); Platelet Count 372 Thou/mm3 (140-440); RDW Standard Deviation 54.2 fL (35.1-43.9); Red Blood Count 3.77 Miln/mm3 (4.50-5.90); White Blood Count 12.7 Thou/mm3 (3.8-10.6)
[2024-03-10 06:43] LABS: Hemoglobin 8.6 g/dL (13.5-16.0)
--- NOTE | 2024-03-10 06:56 | PC.NURSE ---
Dr. Leroy notified of patient HR 39 but not sustaining and came back up to 80s. Patient symptomatic.
[2024-03-10 06:59] LABS: Alanine Aminotransferase 52 U/L (10-49); Albumin, Serum 3.2 gm/dL (3.4-4.8); Albumin/Globulin Ratio 1.4 (1.2-2.2); Alkaline Phosphatase 84 U/L (46-116); Anion Gap 9 (7-16); Aspartate Amino Transferase 37 U/L (0-34); BUN/Creatinine Ratio 54 Ratio (12-20); Bilirubin,Total 0.2 mg/dL (0.3-1.2); Blood Urea Nitrogen 27 mg/dL (9-23); Calcium 8.3 mg/dL (8.3-10.6); Calcium (Corrected) 8.9 mg/dL (8.5-10.1); Carbon Dioxide 25.4 mMol/L (20.0-31.0); Chloride 105 mMol/L (98-107); Creatinine (Component) 0.5 mg/dL (0.6-1.3); Estimated Creatinine Clearance 139.2 mL/min (>60); Globulin 2.3 gm/dL (2.3-3.5); Glucose 94 mg/dL (74-106); Magnesium 1.6 mg/dL (1.6-2.6); Osmolality,Calculated 282 (275-295); Phosphorous 2.3 mg/dL (2.4-5.1); Potassium 3.9 mMol/L (3.4-5.1); Sodium 139 mMol/L (136-145); Total Protein 5.5 gm/dL (5.7-8.2); eGFR > 60 See Note
[2024-03-10 08:00] VITALS: BP 113/53; PULSE 58; PULSE 60; RESP 16; TEMP 36.6; O2SAT 94
--- NOTE | 2024-03-10 08:48 | PC.NURSE ---
Jimena Edwards, followed up with [employer] for the stump machine operator replanter and protector. [employer] informed me that they would be out to deliver the equipment today, 03/10, before 12pm.
[2024-03-10] MEDS: Magnesium Sulfate 4 GM Ivpb 4 GM/50 ML BAG IV (09:50)
--- NOTE | 2024-03-10 10:13 | PC.SS ---
Addendum entered by KIM Govea 03/10/24 16:16: Received a call from [facility], delayed transport for 5:30pm. Updated bed side nurse and [facility] staff. Addendum entered by KIM Govea 03/10/24 14:51: [facility] ETA 4:30pm. Bed side nurse yahaira informed. Patient's Cherelle and Esha at [facility] were informed of ETA. Addendum entered by KIM Govea 03/10/24 14:16: Spoke with patent's , Cherelle she was agreeable with the discharge plan to [facility] today. [facility] reference number: [id number]. Pending transport ETA . Addendum entered by KIM Govea 03/10/24 13:28: SS update: patient ready for d/c. Contacted [facility] staff, spoke with Esha they can accept the patient today at their SNF. Attempted contact with patient's Cherelle, however was unavailable and voicemail was provided. Original Note: SS update: was informed by community development aide that patient's stump protector from [employer] should be delivered around noon time today.
[2024-03-10 12:00] VITALS: BP 127/77; PULSE 59; PULSE 69; RESP 18; TEMP 36.6; O2SAT 95
--- NOTE | 2024-03-10 12:04 | PC.NURSE ---
[place] delivered stump protector
--- NOTE | 2024-03-10 12:36 | ESPR_ITS ---
Documentation for date of: 03/10/24 Subjective Subjective Narrative: Patient is seen and examined. He is resting comfortably Exam Vital Signs Temp Pulse Resp BP Pulse Ox O2 Del Method O2 Flow Rate 97.8 F 58 L 16 113/53 L 94 L Nasal Cannula 2 03/10/24 08:00 03/10/24 08:00 03/10/24 08:00 03/10/24 08:00 03/10/24 08:00 03/10/24 08:00 03/10/24 08:00 Constitutional Constitutional: no acute distress Routine Extremities Exam Comments: Left below the amputation stump healing, no evidence of infection or bleeding at this time Assessment & Plan Assessment Additional comments: Postop day #6 status post left below the knee amputation Plan I was informed that the Department Chairperson prosthesis will be providing stump protector and hydrogen cell tender today. Patient may be discharged after placement of protector Procedures Procedures Left below the knee amputation
--- NOTE | 2024-03-10 14:04 | ESDS_ITS ---
<Statement entered by Harry Lim MD - 03/10/24 15:45> I saw and examined the patient, and I agree with current management stated by Dr Bishnu MD,PGY1. Plan of care was discussed with the attending physician and resident physician. Disclaimer: Despite multiple revisions, due to the dictation software being used, the document bellow may not be free of grammatical errors including phonetic/typographic errors. However, this does not deter from our commitment to providing health care in the patient's best interest in mind. Dr. Carina MD, PGY 2 Planned Discharge Date 03/10/24 DS: Providers Provider Date of admission: 03/01/24 14:19 Primary care physician: Fernando Calle MD Admitting Provider: Brandon Chambers MD Attending Provider on Admission: Brandon Chambers MD Consults: 03/01/24 14:46 Consult to General Surgery Stat Comment: Consulting Provider: Kashif Randhawa 03/01/24 15:33 Referral Physical Therapy Routine Comment: Physician Instructions: 03/02/24 12:48 Referral Wound Care Routine Comment: Attending Provider on DC: Dr. Chambers Discharging Provider: Bishnu Bahena D.O. DS: Diagnosis Problem List Completed Was Problem List Reviewed/Reconciled?: Yes Hospital Course Hospital Course Hospital course: #Hypotension #Fever, appears to have resolved #Leukocytosis # Osteomyelitis of first metatarsal, left foot # Below-knee amputation status post osteomyelitis first metatarsal, left foot #Severe peripheral artery disease status post percutaneous transluminal angioplasty #Chronic limb ischemia #Gangrene of left lower extremity digits #History of first metatarsal amputation, left foot # Post BKA #Constipation- resolved #Abdominal Pain-resolved #Benign prostatic hyperplasia #Hypertension #Hyperlipidemia Patient is a 73-year-old male with past medical history of CVA, CHF stage I diastolic dysfunction, PAD 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 Patient was previously admitted in November 2023 for with similar symptoms. During that hospital course patient was very adamant about going back to SNF without surgical intervention and states that he would refuse any surgical intervention even if it was necessary. Patient was discharged with IV antibiotics and to follow-up up with Dr Randhawa, who amputated patient's first metatarsal of left foot 3 months ago. Since then, patient and state that the wounds have been getting worse. Patient most recently saw Dr. Caldwell vascular surgeon 5 weeks ago at [facility] who performed a percutaneous transluminal angioplasty of the left leg, apparently placed 1 stent after finding greater than 70% occlusion of one of the leg arteries per patient. Since then, patient states that he is wound does not appear to be healing and that his toes are getting darker. Patient states on this admission he is amenable to left leg amputation. On presentation the emergency department vital signs were stable. Blood pressure 149/73, heart rate 85, respiratory rate 21, afebrile, saturating 96% on room air. WBC elevated at 14.9. Hemoglobin 8.2. CMP normal. Blood sugar 94. ESR elevated at 65, CRP 10.3. X-ray of foot shows osteomyelitis of first metatarsal, pronounced soft tissues swelling around dorsum of foot. Venous Doppler of left lower extremity negative for DVT. Given 1 dose of Zosyn and 1 L fluids in ER. Dr Randhawa consulted from the emergency room and states that he will perform BKA. Physical exam of the left leg showed multiple gangrenous digits, no active bleeding, first metatarsal amputation noted with skin erosion down to bone, appeared to be nonhealing. Multiple skin breaks, scabbing, gangrene across left lower extremity below the knee. DP pulses diminished on left lower extremity. Patient was admitted for osteomyelitis and below-knee amputation of left lower extremity. Over the course of patient's hospital stay patient was treated with antibiotics and fluids. Patient had below-knee amputation of left lower extremity performed by Dr Randhawa, and appeared to recover well. During his hospital stay after below- knee amputation patient spiked a fever and had an increasing white count overnight. Blood cultures were taken, patient continued to be on antibiotics. Blood culture resulted negative after 24 hours, white count normalized, patient was afebrile afterwards. Upon discharge patient's vital signs are stable, labs are stable. Patient was seen by Logistic Specialist used equipment sales representative and fitted for prosthesis and will continue to work with physical therapy and SNF to regain his strength. Patient appears stable on upon discharge, and is amenable to discharge to SNF. Status at Discharge Cognitive/behavioral status at discharge: Patient is stable at time of discharge Time Spent with Patient Time attestation: Total time spent providing and/or coordinating discharge services: Exam Vital Signs Temp Pulse Resp BP Pulse Ox O2 Del Method O2 Flow Rate 97.8 F 58 L 16 113/53 L 94 L Nasal Cannula 2 03/10/24 08:00 03/10/24 08:00 03/10/24 08:00 03/10/24 08:00 03/10/24 08:00 03/10/24 08:00 03/10/24 08:00 Narrative Exam Constitutional: AOx3 saturating well on nasal cannula. Eyes: EOMI, no scleral icterus ENMT: Moist Mucous Membranes CVS: RRR, S1 and S2 present, no murmurs, rubs or gallops . RESP: CTAB, no increased work of breathing, no rales, rhonchi or wheezing, on room air GI: Soft, nondistended, nontender MSK: Below-knee amputation left leg. Skin: Warm to touch, Dry. Signs of patient is clean dry and intact. Sutures in place. Psych: (AAO) x3 . Appropriate mood and affect. Discharge Plan Plan Patient Disposition: Xfer Skilled Nsg Fac (SNF) Patient condition on transfer: Stable Care Plan Goals: Please continue to take your home medications as prescribed Please follow-up with your primary care provider provider within 7 days of discharge If you do not have a primary care provider you can establish care with [facility] at [address] [place] [address] , [address], [place], [place] [phone] Please follow-up with Dr Randhawa in clinic within two weeks of discharge [address] [place] [address] Please continue to work with physical therapy as this is crucial to regain your strength If symptoms recur or worsen, persist please return to the emergency department Prescriptions/Referrals Prescriptions/Med Rec: New ascorbic acid (vitamin C) 500 mg capsule 500 mg PO BID 30 Days Qty: 60 0RF melatonin 3 mg Tablet 3 mg PO HS PRN (Reason: Insomnia) 30 Days Qty: 30 0RF zinc sulfate 50 mg zinc (220 mg) Capsule 220 mg PO QDAY 30 Days Qty: 132 0RF polyethylene glycol 3350 [Miralax] 17 gram/dose powder 4 g PO QDAY PRN (Reason: constipation) Qty: 119 0RF ferrous sulfate 325 mg (65 mg iron) tablet 325 mg PO Q OTHER DAY Qty: 30 0RF doxycycline monohydrate 100 mg capsule 100 mg PO BID 5 Days Qty: 10 0RF Continued tamsulosin 0.4 mg capsule 0.4 mg PO QHS metoprolol succinate 25 mg tablet extended release 24 hr 25 mg PO QDAY Patient Comments: TAKE ONE TABLET BY MOUTH EVERY DAY FOR BLOOD PRESSURE Eliquis 5 mg tablet 2.5 mg PO BID Patient Comments: TAKE ONE TABLET BY MOUTH TWICE DAILY FOR THE HEART furosemide 40 mg tablet 40 mg PO QDAY 30 Days Qty: 30 3RF hydrocodone-acetaminophen 10-325 mg Tablet 1 tab PO Q6H PRN (Reason: Breakthrough Pain) atorvastatin 80 mg tablet 80 mg PO QPM Patient Comments: TAKE ONE TABLET BY MOUTH AT BEDTIME FOR CHOLESTEROL Discontinued lorazepam [Ativan] 1 mg Tablet 1 mg PO Q6H PRN (Reason: Anxiety) OxyContin 20 mg Tablet Extended Release 12 Hr 20 mg PO BID Referrals: Fernando Calle MD [Primary Care Provider] - Kashif Randhawa MD [Physician] - Patient/Caregiver Discharge Instructions Other Discharge Activity Instructions:: Please continue to take your home medications as prescribed Please follow-up with your primary care provider provider within 7 days of discharge If you do not have a primary care provider you can establish care with [facility] at [address] [place] [address] , [address], [place], [place] [phone] Please follow-up with Dr Randhawa in clinic within two weeks of discharge [address] [place] [address] Please continue to work with physical therapy as this is crucial to regain your strength If symptoms recur or worsen, persist please return to the emergency department Education Materials: Amputation Leg Health Other Leg, Amputation Phantom Sensation Pain, Amputation What to Expect After, Adjusting to Limb Loss, Amputation Lower Body Strength, Preventing Surgical Site Infections Print Language: Danish Activity Restrictions/Additional Instructions: May shower. Apply fuel retrofitting technician and stump protector at all times. Keep knee straight. Follow-up with Dr Randhawa in 2 weeks, please call [phone] for an appointment. Stand Alone Forms: [employer] Award Info., Patient Portal Info Letter Discharge Order Discharge Orders: Discharge (Routine); Ordered 03/10/24 Ordered By: Harry Lim Quality Discharge Quality Measures VTE prophylaxis Attestestation MD Attestation I attest that I was physically present for the evaluation, physical examination, lab and imaging review of the patient with the residents. I discussed the case with the residents and agree with the findings and plans of care as documented above. Patient received his prosthesis today, states that he has been feeling well and does not have any new complaints.? Patient had a fever on the 14th after his surgery, has been on antibiotics.? Afebrile for 2 days and WBC count has been i mproving consistently.? We will discharge patient on oral antibiotics.? Recommended to follow-up with PCP and general surgery in 1 to 2 weeks of discharge. Brandon Chambers MD
[2024-03-10 15:54] VITALS: PULSE 62
== END 2024-03-10 17:29 | disposition skilled nursing facility (03) | DRG 240 ==
LOC: SERX 13:36 → SERHOLD 14:43 → S3EX 21:09 → S3SX 03-03 18:02
PROVIDERS: Registered Nurse General Practice; Student in an Organized Health Care Education/Training Program; Surgery; Admitting Provider Student in an Organized Health Care Education/Training Program; Emergency Provider Emergency Medicine; PCP Family Medicine; Visit Provider Student in an Organized Health Care Education/Training Program
PROC: 0Y6J0Z1 Detachment at Left Lower Leg, High, Open Approach (ICD-10-PCS; CPT 27880; principal; 2024-03-04 12:15)
DX: E11.52 Type 2 diabetes mellitus with diabetic peripheral angiopathy with gangrene (principal); I50.32 Chronic diastolic (congestive) heart failure; M86.172 Other acute osteomyelitis, left ankle and foot; I70.262 Atherosclerosis of native arteries of extremities with gangrene, left leg; E11.69 Type 2 diabetes mellitus with other specified complication; I11.0 Hypertensive heart disease with heart failure; E78.5 Hyperlipidemia, unspecified; F15.10 Other stimulant abuse, uncomplicated; N40.0 Benign prostatic hyperplasia without lower urinary tract symptoms; K59.00 Constipation, unspecified; I95.9 Hypotension, unspecified; I48.91 Unspecified atrial fibrillation; Z66 Do not resuscitate; Z98.62 Peripheral vascular angioplasty status; Z87.891 Personal history of nicotine dependence; Z86.73 Personal history of transient ischemic attack (TIA), and cerebral infarction without residual deficits; Z85.46 Personal history of malignant neoplasm of prostate; Z79.899 Other long term (current) drug therapy; Z79.01 Long term (current) use of anticoagulants
CPT/HCPCS: 36415; 73630; 74018; 75635; 80053; 80202; 80307; 81001; 83735; 84100; 84484; 85014; 85018; 85025; 85610; 85652; 85730; 86140; 86850; 86900; 86901; 86923; 87040; 87070; 87077; 87081; 87086; 87186; 87205; 93005; 93225; 93971; 96361; 96365; 97162; 99285; A4217; A4649; J0692; J0696; J1100; J1643; J2250; J2270; J2405; J2543; J2704; J2795; J3010; J3370; J3372; J3475; J3480; J3490; J7030; J7040; J7050; J7120; P9016; Q9967; A9270

== ENCOUNTER 2024-03-18 15:27 | Emergency (ER) | payer MEDICARE, MEDICAID, SELFPAY ==
[2024-03-18 15:36] VITALS: BP 127/62; PULSE 60; RESP 16; TEMP 37; O2SAT 96; BMI 26.8
[2024-03-18 16:07] VITALS: PULSE 60; BMI 162.4
--- NOTE | 2024-03-18 17:10 | PC.CC ---
Patient is a 73 year-old male BIBA to the [facility] for mental health evaluation due making suicidal statement to staff at [facility]. JADEWLia made [id number] contact with patient to complete assessment. ASW?s introduced self, role, and reason for assessment to patient. ASW disclosed limits of confidentiality as well. Patient appeared alert and oriented to self, place, and situation. Patient made appropriate eye contact and engaged in assessment. Patient mood appeared depressed throughout assessment; his behavior appeared disinhibited with flat affect. Patient?s thought process was linear and organized. Patient reports he has been feeling depresses and sad as his life completely changed approximately six months ago. Patient stated, ?I had a stroke about 6 months ago then I got an infection in my toe which did not heal then I had to get a below the knee amputation.? 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 Patient reports he made suicidal statements about there not being an outlook on life; however, he does not have a plan or intention when it comes to suicide. Patient denied past suicide attempts. Patient denied homicidal ideations, visual and auditory hallucinations. Patient reports he has never been placed on a 5150-hold. Patient reports he has his who is a beautiful and has her to live for and his sister, Sada Singh. The following information is collateral information from Margarita-Business Data Analyst at [facility]. She reports that patient was seen by their psychiatrist but refused all medication recommendation. Patient had stated, ?Suicide is on his mind every day at all times.? ASW spoke to the patient to gain clarification of the above suicide statement he had made to staff and patient stated, ?They are lying I did not say that.? ASW explored with patient how he felt about returning back to [facility] and he reports he ?I am fine going back.? Upon clinical consultation with ASSISTANT DIRECTOR OF ADMISSIONS, Lesley Escobedo the patient does not meet criteria for 5150-Hold as patient is denying suicidal ideations with plan or intention. ASW made contact with ALEXANDR Mayo at [facility] and he reports all medications are locked at the facility. Patient is not allowed to have firearms. The facility is to provide extra supervision for the next 72 hours and have their psychiatrist attempt to consult with the patient again. Dr. Oates and beverage server Lanise were made aware of the discharge plan. ASW to arrange transportation back to [place].
--- NOTE | 2024-03-18 17:32 | EDNOTE_ITS ---
ED Psych RME/HPI General Chief Complaint: Suicidal Stated Complaint: VOLUNTARY 5150 Time Seen by Provider: 03/18/24 15:35 Arrival date/time: 03/18/24 15:27 RME / HPI RME / HPI Narrative: 73 year old male with history of CVA, CHF , PAD, hypertension, BPH, prostate cancer s/p external beam proton radiation, hyperlipidemia, s/p left BKA performed 03/04/2024 Dr. Randhawa presents to the ED BIBA from [facility] for evaluation of suicidal statements today. Per medics, patient had made suicidal statements to the [facility] staff. Reportedly states he did not have a plan to kill himself but did not care if his life ended. While in the ED patient reports feeling supper depressed and down . States he has had suicidal thoughts without any plans or actions. Denies homicidal ideation or hallucinations. No other complaints reported. Denies consulting with psychiatrist or therapist. Related Data Home Medications ?Medication ?Instructions ?Recorded ?Confirmed tamsulosin 0.4 mg capsule 0.4 mg PO QHS 08/02/21 03/01/24 apixaban 5 mg tablet (Eliquis) 2.5 mg PO BID 11/10/23 12/13/23 metoprolol succinate 25 mg 25 mg PO QDAY 11/10/23 03/01/24 tablet,extended release 24 hr hydrocodone 10 mg-acetaminophen 1 tab PO Q6H PRN Breakthrough Pain 12/13/23 03/01/24 325 mg tablet atorvastatin 80 mg tablet 80 mg PO QPM 03/01/24 03/01/24 Previous Rx's ?Medication ?Instructions ?Recorded furosemide 40 mg tablet 40 mg PO QDAY 30 days #30 tabs 11/16/23 ascorbic acid (vitamin C) 500 mg 500 mg PO BID 30 days #60 caps 03/10/24 capsule ferrous sulfate 325 mg (65 mg 325 mg PO Q OTHER DAY #30 tabs 03/10/24 iron) tablet melatonin 3 mg tablet 3 mg PO HS PRN Insomnia 30 days 03/10/24 #30 tabs polyethylene glycol 3350 17 4 g PO QDAY PRN constipation #119 03/10/24 gram/dose oral powder (Miralax) grams zinc sulfate 50 mg zinc (220 mg) 220 mg (4.4 x 50 mg zinc (220 mg)) 03/10/24 capsule PO QDAY 30 days #132 caps Allergies Allergy/AdvReac Type Severity Reaction Status Date / Time No Known Allergies Allergy Verified 03/18/24 16:11 Review of Systems Review of Systems Narrative Review of Systems: Gen: No fever, no chills, no weight loss EYES: No discharge, no visual changes, no pain HEENT: No ear pain, no congestion, no sore throat PULM: no shortness of breath, no cough, no congestion CV: No chest pain, no dyspnea on exertion, no palpitations, no chest tightness GI: No nausea, no vomiting, no diarrhea, no pain, no constipation : No frequency, no urgency,? no dysuria Musc/skel: No joint pain, no back pain Skin: No rash, no ecchymosis, no lesions Psyc: No hallucinations, + depression, +suicidal thoughts Heme/Lymph: No easy bleeding or bruising tendencies Neuro: No weakness, no headache Past Medical History Past Medical History NEUROLOGIC: Positive Neurological Disorders and Cerebrovascular Accident CARDIAC: Positive Cardiac Disorders, Myocardial Infarction, Peripheral Vascular Disease, Hypercholesterolemia, Congestive Heart Failure, Deep Vein Thrombosis and Hypertension GENITOURINARY: Positive Prostate Cancer and Benign Prostatic Hyperplasia MUSCULOSKELETAL: Positive Osteomyelitis OTHER HISTORY: Positive Cancer and Prostate Cancer Surgical History SURGICAL: Positive Amputation Social History SMOKING STATUS: Former smoker SECOND HAND EXPOSURE: No SUBSTANCE USE: does not use 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 MMM. EOMI, clear conjunctiva, oropharynx clear. NECK: Supple without lymphadenopathy. No stiffness or restricted ROM. HEART: Normal rate and regular rhythm, normal S1/S1, no m/r/g LUNGS: CTAB, moving air well. No crackles or wheezes are heard. ABDOMEN: Soft, nontender, nondistended with good bowel sounds heard. BACK: No midline C/T/L spine pain or deformity, No CVAT, no obvious deformity. EXTREMITIES: Left BKA. Without cyanosis, clubbing or edema. MUSCULOSKELETAL: FROM of all major joints, no chest tenderness NEUROLOGICAL: Grossly nonfocal. Alert and oriented, moving all 4 extremities. CN not formally tested but appear grossly intact. Skin: Warm and dry without any rash. Course Quality Measures none Reevaluation(s) Reevaluation #1: Patient remains clinically stable throughout the emergency department visit. We reviewed treatment plans. Patient is amenable to discharge. Patient was discharged in stable condition. Time: 17:05 Vital Signs Vital signs: Vital Signs Temperature 98.6 F 03/18/24 15:36 Pulse Rate 60 03/18/24 15:36 Respiratory Rate 16 03/18/24 15:36 Blood Pressure 127/62 03/18/24 15:36 Pulse Oximetry (%) 96 03/18/24 15:36 Oxygen Delivery Method Room Air 03/18/24 15:36 Pulse ox is 96% on room air which is adequate. Psych MDM Narrative MDM Narrative:: IJohana am scribing for and in the presence of Dr. Oates. 1545: Patient is medically cleared for mental health evaluation. Patient has been evaluated by our ASW, states patient can be discharged home. Provided with adequate resources. Patient data External records reviewed:: [facility] previous records (I reviewed admission from 03/01/2024 through 03/10/2024), EMS form and Long Term records (I reviewed txfer ppw from [facility] ) Clinical information provided by:: patient and EMS Social determinants that could affect healthcare access:: housing ([place] resident ) Patient has the following chronic illnesses:: CVA, CHF , PAD, hypertension, BPH, prostate cancer s/p external beam proton radiation, hyperlipidemia, s/p left BKA performed [address]by Dr. Randhawa How is presenting disease/condition affected by chronic disease/condition?: ex acerbated by Evaluation data The following diagnostics were reviewed and interpreted by me:: other (specify) (None ) Lab and/or radiology exams considered but not ordered:: None Interpretation Summary: N/A Medications / Prescriptions Medications or Prescriptions considered but not ordered:: None Medication administrations:: None Consultations Consultation(s) initiated? (list below): No Diagnosis Psych Differential Diagnosis: suicidal ideation, bipolar disorder, depression and acute anxiety Most likely diagnosis given after review of the tests above:: Depression Admission Indicated Admission indicated?: not indicated Admission Request Was there a request for admission?: No Disposition Plan Disposition Plan: Discharge Discharge Attestation Discharge Attestation: The patient and all family members were given an opportunity to ask questions and understood the discharge instructions. Discharge instructions specifically effects, indications for sooner follow up or return to the emergency department, and the expected course of current diagnosis. Patient condition: Stable Discharge Plan Plan Patient Disposition: HOME (Self Care) Prescriptions/Referrals Prescriptions/Med Rec: No Action tamsulosin 0.4 mg capsule 0.4 mg PO QHS metoprolol succinate 25 mg tablet extended release 24 hr 25 mg PO QDAY Patient Comments: TAKE ONE TABLET BY MOUTH EVERY DAY FOR BLOOD PRESSURE Eliquis 5 mg tablet 2.5 mg PO BID Patient Comments: TAKE ONE TABLET BY MOUTH TWICE DAILY FOR THE HEART furosemide 40 mg tablet 40 mg PO QDAY 30 Days Qty: 30 3RF hydrocodone-acetaminophen 10-325 mg Tablet 1 tab PO Q6H PRN (Reason: Breakthrough Pain) atorvastatin 80 mg tablet 80 mg PO QPM Patient Comments: TAKE ONE TABLET BY MOUTH AT BEDTIME FOR CHOLESTEROL ascorbic acid (vitamin C) 500 mg capsule 500 mg PO BID 30 Days Qty: 60 0RF melatonin 3 mg Tablet 3 mg PO HS PRN (Reason: Insomnia) 30 Days Qty: 30 0RF zinc sulfate 50 mg zinc (220 mg) Capsule 220 mg PO QDAY 30 Days Qty: 132 0RF polyethylene glycol 3350 [Miralax] 17 gram/dose powder 4 g PO QDAY PRN (Reason: constipation) Qty: 119 0RF ferrous sulfate 325 mg (65 mg iron) tablet 325 mg PO Q OTHER DAY Qty: 30 0RF Problem List Clinical Impression: Depression Patient/Caregiver Discharge Instructions Education Materials: ED Depression Additional Instructions: Follow-up with your safety plan as outlined with the mental health provider today. Return to emergency room sooner symptoms worsen or if there is any new or concerning issues. Print Language: Kyrgyz Stand Alone Forms: Litzy Award Info., Patient Portal Info Letter
== END 2024-03-18 19:45 | disposition home or self-care (01) ==
LOC: SERX 19:31
PROVIDERS: Emergency Provider Emergency Medicine; PCP Family Medicine
DX: F32.A Depression, unspecified (principal); E78.5 Hyperlipidemia, unspecified; N40.0 Benign prostatic hyperplasia without lower urinary tract symptoms; I50.9 Heart failure, unspecified; I11.0 Hypertensive heart disease with heart failure; Z92.3 Personal history of irradiation; Z85.46 Personal history of malignant neoplasm of prostate
CPT/HCPCS: 90839; 96127; 99283

== ENCOUNTER 2024-04-01 09:15 | Inpatient (IN) | payer MEDICARE, MEDICAID, SELFPAY ==
[2024-04-01] VITALS (7 sets, daily range): BP systolic 119–151; BP diastolic 63–74; PULSE 47–78; RESP 17–99; TEMP 36.6–36.9; O2SAT 95–98; BMI 26.8; BMI 25.2
--- NOTE | 2024-04-01 09:46 | EDNOTE_ITS ---
ED Skin Abcess FB-RME/HPI General Chief complaint: Wound/Laceration Stated complaint: POSSIBLE INFECTION TO LEFT BKA SURGICAL SITE Time Seen by Provider: 04/01/24 09:36 Arrival date/time: 04/01/24 09:15 RME / HPI RME / HPI narrative: DR. MILLER MAIN ED EVALUATION: 73 year old male presents to the Emergency Department with complaints of redness, soreness, swelling, and leaking fluid on the left BKA surgical site. Patient saw Dr. Randhawa this morning and was sent over for admission. No other symptoms reported at this time. PMHx: Hypertension, chronic foot ulcers, on Eliquis Social Hx: Methamphetamine abuse Related Data Home Medications ?Medication ?Instructions ?Recorded ?Confirmed tamsulosin 0.4 mg capsule 0.4 mg PO QHS 08/02/2103/01 apixaban 5 mg tablet (Eliquis) 2.5 mg PO BID 11/10/23 12/13/23 metoprolol succinate 25 mg 25 mg PO QDAY 11/10/2309/16 tablet,extended release 24 hr hydrocodone 10 mg-acetaminophen 1 tab PO Q6H PRN Break through Pain 12/13/23 03/01/24 325 mg tablet atorvastatin 80 mg tablet 80 mg PO QPM 03/01/24 Previous Rx's ?Medication ?Instructions ?Recorded furosemide 40 mg tablet 40 mg PO QDAY 30 days #30 ta bs 11/16/23 ascorbic acid (vitamin C) 500 mg 500 mg PO BID 30 days #60 caps 03/10/24 capsule ferrous sulfate 325 mg (65 mg 325 mg PO Q OTHER DAY #3 0 tabs 03/10/24 iron) tablet melatonin 3 mg tablet 3 mg PO HS PRN Insomnia 30 d ays 03/10/24 #30 tabs polyethylene glycol 3350 17 4 g PO QDAY PRN constipati on #119 03/10/24 gram/dose oral powder (Miralax) grams zinc sulfate 50 mg zinc (220 mg) 220 mg (4.4 x 50 mg z inc (220 mg)) 03/10/24 capsule PO QDAY 30 days #132 caps Allergies Allergy/AdvReac Type Severity Reaction Status Date / Time No Known Allergies Allergy Verified 04/01/24 09:17 Review of Systems Review of Systems Systems Reviewed: All systems reviewed, normal except as documented Narrative Review of Systems: GEN: No fever, no chills, no weight loss EYES: No discharge, no visual changes, no pain HEENT: No ear pain, no congestion, no sore throat PULM: No shortness of breath, no cough, no congestion CV: No chest pain, no dyspnea on exertion, no palpitations GI: No nausea, no vomiting, no diarrhea, no pain, no constipation : No frequency, no urgency and no dysuria MUSC/SKEL: No joint pain, no back pain SKIN: No rash. + redness, soreness, swelling, and leaking fluid on the left BKA surgical site PSYCH: No hallucinations, no depression HEME/LYMPH: No easy bleeding or bruising tendencies NEURO: No weakness, no headache Past Medical History Past Medical History NEUROLOGIC: Positive Neurological Disorders and Cerebrovascular Accident CARDIAC: Positive Cardiac Disorders, Myocardial Infarction, Peripheral Vascular Disease, Hypercholesterolemia, Congestive Heart Failure, Deep Vein Thrombosis and Hypertension GENITOURINARY: Positive Prostate Cancer and Benign Prostatic Hyperplasia MUSCULOSKELETAL: Positive Osteomyelitis OTHER HISTORY: Positive Cancer and Prostate Cancer Surgical History SURGICAL: Positive Amputation Social History SMOKING STATUS: Former smoker SECOND HAND EXPOSURE: No SUBSTANCE USE: methamphetamine 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 HEENT: Normocephalic, atraumatic; pupils equal, round, reactive to light; EOMI; mucous membranes pink, moist; oropharynx clear NECK: Supple LUNGS: CTABL; no wheezes, no rales, no rhonchi HEART: Regular rate, regular rhythm; normal S1, S2; no murmurs ABDOMEN: non distended; normal BS; soft, no tenderness, no guarding, no rebound; no masses, no organomegaly, no hernia BACK: no CVA tenderness EXTREMITIES: left BKA surgical site redness and swelling noted NEUROLOGIC: awake; alert and oriented x4; cranial nerves II-XII grossly intact; no focal sensory or motor deficits PSYCHIATRIC: appropriate mood and affect SKIN: warm, dry, normal color; no rashes Course Quality Measures none Orders Category Date Time Status COVID-19 Screening Questionnaire NOW Care 04/01/24 14:18 Active Silk Screen Cutter NOW Care 04/01/24 10:45 Active Decision to Admit X1 Care 04/01/24 14:18 Active EKG (ED ONLY) *Do not use* NOW Care 04/01/24 10:45 Completed EKG (ED Only) Stat Exams 04/01/24 10:45 Draft XR chest 1V portable Stat Exams 04/01/24 10:45 Completed B-Type Natriuretic Peptide Stat Lab 04/01/24 11:13 Completed Blood Culture (Lab) Stat Lab 04/01/24 11:13 Received CBC Stat Lab 04/01/24 11:13 Completed Comprehensive Metabolic Panel Stat Lab 04/01/24 11:13 Completed Lactate (Lactic Acid) Stat Lab 04/01/24 11:13 Completed Lipase Stat Lab 04/01/24 11:13 Completed Magnesium Stat Lab 04/01/24 11:13 Completed Partial Thromboplastin Time Stat Lab 04/01/24 11:13 Completed Path Review Blood Smear Stat Lab 04/01/24 11:13 Completed Procalcitonin Stat Lab 04/01/24 11:13 Completed Prothrombin Time with INR Stat Lab 04/01/24 11:13 Completed Troponin I Stat Lab 04/01/24 11:13 Completed Vital Signs Vital signs: Vital Signs Temperature 98.5 F 04/01/24 10:11 Pulse Rate 47 L 04/01/24 10:11 Respiratory Rate 19 04/01/24 10:11 Blood Pressure 119/63 04/01/24 10:11 Pulse Oximetry (%) 98 04/01/24 10:11 Oxygen Delivery Method Room Air 04/01/24 10:11 Skin / Abscess / Foreign Body MDM Narrative MDM Narrative:: I, Nidia Thomas am scribing for and in the presence of Dr. Miller. Patient data External records reviewed:: [facility] previous records (Reviewed last admission discharge dated 03/10/24, patient admitted for the following: Acute osteomyelitis of left foot) Clinical information provided by:: patient Social determinants that could affect healthcare access:: substance use (Methamphetamine abuse) Patient has the following chronic illnesses:: Hypertension, chronic foot ulcers, on Eliquis How is presenting disease/condition affected by chronic disease/condition?: exacerbated by Evaluation data The following diagnostics were reviewed and interpreted by me:: lab results, radiology exam(s) and EKG tracing(s) (sinus bradycardia with occasional ventricular premature complexes, rate 49, left anterior fascicular block) Lab and/or radiology exams considered but not ordered:: none Interpretation Summary: Procedure(s): XR chest 1V portable Accession Number(s): [id number] cc: Timur Metzger MD; Cynthia Miller MD~ Examination: AP chest single view TECHNIQUE: Upright AP chest single view Exam date and time: April 01, 2024 at 1051 hours INDICATIONS: Chest pain today. FINDINGS: Mild to moderate enlargement left ventricle, mild vascular congestion No pneumonia or pulmonary edema The osseous structures are intact IMPRESSION: No pneumonia or pulmonary edema Mild vascular congestion Dictated By: Timur Metzger MD Medications / Prescriptions Medications or Prescriptions considered but not ordered:: none Medication administrations:: see above if any Consultations Consultation(s) initiated? (list below): Yes Consultation #1 (Physician, Specialty, Details): Discussed test HPI, PMHx, lab, radiology results and/or management with hospitalist. Will admit for further evaluation and management. Accepts patient for admission. Time: 14:43 Diagnosis Skin/Abscess Differential Diagnosis: abscess of skin or subcutaneous tissue, cellulitis and other (osteomyelitis, sepsis) Most likely diagnosis given after review of the tests above:: Cellulitis Admission Indicated Admission indicated?: indicated Admission Request Was there a request for admission?: Yes Admission Attestation Admission request attestation: Discussed case with [] from Hospitalist service regarding admission. Discussed patients ED course, exam findings, labs, and radiology results. The Hospitalist [agrees,declines] to accept the patient for admission. Disposition Plan Disposition Plan: Admit Discharge Plan Plan Patient Disposition: Admit Acute Care w/in Hospital Prescriptions/Referrals Prescriptions/Med Rec: No Action tamsulosin 0.4 mg capsule 0.4 mg PO QHS metoprolol succinate 25 mg tablet extended release 24 hr 25 mg PO QDAY Patient Comments: TAKE ONE TABLET BY MOUTH EVERY DAY FOR BLOOD PRESSURE Eliquis 5 mg tablet 2.5 mg PO BID Patient Comments: TAKE ONE TABLET BY MOUTH TWICE DAILY FOR THE HEART furosemide 40 mg tablet 40 mg PO QDAY 30 Days Qty: 30 3RF hydrocodone-acetaminophen 10-325 mg Tablet 1 tab PO Q6H PRN (Reason: Breakthrough Pain) atorvastatin 80 mg tablet 80 mg PO QPM Patient Comments: TAKE ONE TABLET BY MOUTH AT BEDTIME FOR CHOLESTEROL ascorbic acid (vitamin C) 500 mg capsule 500 mg PO BID 30 Days Qty: 60 0RF melatonin 3 mg Tablet 3 mg PO HS PRN (Reason: Insomnia) 30 Days Qty: 30 0RF zinc sulfate 50 mg zinc (220 mg) Capsule 220 mg PO QDAY 30 Days Qty: 132 0RF polyethylene glycol 3350 [Miralax] 17 gram/dose powder 4 g PO QDAY PRN (Reason: constipation) Qty: 119 0RF ferrous sulfate 325 mg (65 mg iron) tablet 325 mg PO Q OTHER DAY Qty: 30 0RF Referrals: Fernando Calle MD [Primary Care Provider] - In 1 week Problem List Clinical Impression: Cellulitis Patient/Caregiver Discharge Instructions Print Language: Urdu Stand Alone Forms: [employer] Award Info., Patient Portal Info Letter
--- NOTE | 2024-04-01 10:45 | EKG_ITS ---
[facility] Test Date: 2024-04-01 Pat Name: JENNA VO Department: Room: - Gender: Male Air Tucker: : 1950 Requested By: Cynthia Dia Order Number: [id number] Reading MD: Cynthia Dia Measurements Intervals [place] Rate: 49 P: -62 [place]: 202 QRS: -53 QRSD: 111 T: -12 QT: 456 QTc: 412 Interpretive Statements SINUS BRADYCARDIA WITH OCCASIONAL VENTRICULAR PREMATURE COMPLEXES PATTERN CONSISTENT WITH PULMONARY DISEASE LEFT ANTERIOR FASCICULAR BLOCK [QRS AXIS <= -45, QR IN I, RS IN II] POSSIBLE SEPTAL MYOCARDIAL INFARCTION , PROBABLY OLD [30 ms Q WAVE IN V1/V2] Compared to ECG 03/05/2024 13:28:22 Ventricular premature complex(es) now present Left anterior fascicular block now present T-wave abnormality no longer present Possible ischemia no longer present Myocardial infarct finding still present /store/S0/[id number]/[id number].pdf
--- NOTE | 2024-04-01 10:45 | XR_ITS ---
Examination: AP chest single view TECHNIQUE: Upright AP chest single view Exam date and time: April 01, 2024 at 1051 hours INDICATIONS: Chest pain today. FINDINGS: Mild to moderate enlargement left ventricle, mild vascular congestion No pneumonia or pulmonary edema The osseous structures are intact IMPRESSION: No pneumonia or pulmonary edema Mild vascular congestion
[2024-04-01 11:29] LABS: Lactate (Lactic Acid) 1.2 mMol/L (0.4-2.0)
[2024-04-01 11:31] LABS: Basophils # (Auto) 0.1 Thou/mm3 (0.0-0.2); Basophils % (Auto) 1 % (0-2.5); Eosinophils # (Auto) 0.3 Thou/mm3 (0.0-0.5); Eosinophils % (Auto) 5 % (0-10); Hematocrit 34.9 % (41.0-53.0); Hemoglobin 10.8 g/dL (13.5-16.0); Immature Granulocytes % (Auto) 0 % (0-0); Immature Granulocytes Auto 0.02 Thou/mm3 (0.00-0.00); Lymphocytes % (Auto) 16 % (10-50); Mean Corpuscular HGB Conc 30.9 g/dl (31.0-37.0); Mean Corpuscular Hemoglobin 24.3 pg (25.0-35.0); Mean Corpuscular Volume 79 fL (80-100); Monocytes # (Auto) 0.7 Thou/mm3 (0.0-0.8); Monocytes % (Auto) 10 % (0-12); Neutrophils # (Auto) 4.3 Thou/mm3 (1.8-7.7); Neutrophils % (Auto) 68 % (37-80); Nucleated Red Blood Cell % 0 /100 WBC (0); Platelet Count 244 Thou/mm3 (140-440); RDW Standard Deviation 69.8 fL (35.1-43.9); Red Blood Count 4.44 Miln/mm3 (4.50-5.90); White Blood Count 6.4 Thou/mm3 (3.8-10.6)
[2024-04-01 11:47] LABS: Partial Thromboplastin Time 28.1 Seconds (22.0-36.0); Prothrombin Time 11.4 Seconds (9.0-12.2)
[2024-04-01 11:48] LABS: B-Type Natriuretic Peptide 156 pg/mL (0-100)
[2024-04-01 12:05] LABS: Alanine Aminotransferase 15 U/L (10-49); Albumin/Globulin Ratio 1.7 (1.2-2.2); Alkaline Phosphatase 131 U/L (46-116); Anion Gap 7 (7-16); Aspartate Amino Transferase 13 U/L (0-34); BUN/Creatinine Ratio 23 Ratio (12-20); Bilirubin,Total 0.4 mg/dL (0.3-1.2); Blood Urea Nitrogen 21 mg/dL (9-23); Calcium 8.9 mg/dL (8.3-10.6); Calcium (Corrected) 8.9 mg/dL (8.5-10.1); Carbon Dioxide 27.6 mMol/L (20.0-31.0); Chloride 106 mMol/L (98-107); Creatinine (Component) 0.9 mg/dL (0.6-1.3); Estimated Creatinine Clearance 80.2 mL/min (>60); Globulin 2.4 gm/dL (2.3-3.5); Glucose 84 mg/dL (74-106); Lipase 30 U/L (12-53); Magnesium 1.8 mg/dL (1.6-2.6); Osmolality,Calculated 283 (275-295); Potassium 4.2 mMol/L (3.4-5.1); Procalcitonin 0.05 ng/ml (0.0-0.49); Sodium 141 mMol/L (136-145); Total Protein 6.4 gm/dL (5.7-8.2); Troponin I < 0.020 ng/mL (0.0-0.045); eGFR > 60 See Note
[2024-04-01 12:52] LABS: Path Review Blood Smear Sent to Pathologist
--- NOTE | 2024-04-01 15:21 | ESHP_ITS ---
<Statement entered by Esvin Finley MD - 04/02/24 17:34> I discussed with and supervised the purchasing internship physician involved in the care of this patient. Patient assessment and plan was discussed with entire medicine team, including my attending. I agree with the assessment and plan as documented by purchasing internship doctor. Patient care was discussed with my attending physician Dr. Kyler Finley, PGY-2 Documentation for date of: 04/01/24 HPI History of Present Illness Chief complaint: Swollen left stump History of present illness: HPI: Patient is a 73-year-old male with a past medical history significant for peripheral arterial disease s/p percutaneous angioplasty, critical limb ischemia s/p left BKA [03/04/2024], BPH, primary hypertension, hyperlipidemia, chronic CVA [2023], chronic diastolic heart failure with preserved EF [>70%], severe pulmonary arterial hypertension, coronary artery disease s/p stents presented with a chief complaint of swollen left stump. Patient follows up with medical technician Dr. Talat Kirby. Patient was recently hospitalized from 03/01/2024 to 03/10/2024. Patient was treated with a left BKA by general surgeon, Dr Randhawa after failed stenting and angioplasty of left extremity by Dr. Mccoy, vascular surgeon. Today patient had a routine follow-up with general surgeon, Dr Randhawa who instructed him to present to the emergency department. His stump was swollen, erythematous and draining serosanguineous fluid. Patient denies any fever, pain, vomiting, diarrhea, chest pain, palpitations, SOB and recent illnesses. Patient also denies any sick contacts or recent travel. ED course: BP 119/63, P47, RR 19, temp 98.5 F, SpO2 98% on room air. Labs significant for Hb 10.8, HCT 34.9, NA 141, K4.2, Pro-Tex 0.05. Chest x-ray significant for mild vascular congestion. Negative for pulmonary edema or pleural effusion EKG significant for sinus bradycardia with PVCs. Rate 47 In the ED patient received no medication or treatment Patient will be admitted for treatment and management of left lower extremity cellulitis. General surgeon, Dr Randhawa consulted and closely following the case. Appreciate recommendations Review of Systems Review of Systems Narrative Review of Systems: GENERAL: Denies fever/chills or diaphoresis. HEENT: Denies headaches or visual changes. Denies discharge. Neuro: Denies unusual weakness or difficulty speaking. CARDIO: Denies chest pain or palpitations. PULM: Denies SOB, coughing or wheezing. GI: Denies abdominal pain, N/V/C/D. Reports having BMs. URO: Denies burning/itching/pain/urinary changes. MSK/EXT/SKIN: Denies joint/skeletal/muscle pain, issues/changes in upper or lower extremities, itchiness, or superficial pain. PSYCH: Cooperative, pleasant mood & affect. The rest of the review of systems is otherwise negative. Past Medical History Past Medical History Comments PMH COMMENT: Past medical history: Peripheral arterial disease s/p percutaneous angioplasty Critical limb ischemia s/p left BKA [03/04/2024] BPH Primary hypertension Hyperlipidemia Chronic CVA [2023] Chronic diastolic heart failure with preserved ejection fraction [>70%] Severe pulmonary arterial hypertension CAD s/p stents Medication list: Awaiting reconciliation Past surgical history: Prostate cancer s/p radiation at [facility] 2015 - now in remission Allergies: NKFDA Social history: Occupational History: No retired. Previously a [employer] Education Level: Attended 2 years college, did not graduate. Marital Status: Tobacco use: Quit 10 years ago. Previously approximately 80?560-spqu-adcd history ETHO use: Approximately 1 drink per month Illicit drug use: Denies Social History Note: lives alone Family History: Father?stroke Exam Vital Signs Temp Pulse Resp BP Pulse Ox O2 Del Method 98.0 F 65 18 126/63 95 Room Air 04/01/24 14:14 04/01/24 14:14 04/01/24 14:14 04/01/24 14:14 04/01/24 14:14 04/01/24 14:14 Narrative Exam Constitutional Alert, oriented x 3 and comfortable. Elderly male HEENT Vision grossly intact. Patent nares. Trachea midline Respiratory Chest normal on inspection and clear auscultation bilaterally Cardiovascular S1 and S2 audible, RRR. No murmurs carotid bruit. No gross JVD. Abdominal Soft and non tender to palpation in all quadrants. BS + Genitourinary No bladder tenderness, no flank pain. Normal to palpation Musculoskeletal Extremities tone within normal limits. No LE edema. Neurological CN II - XII grossly intact. Extremity motor and sensation grossly intact. Skin Warm, dry and intact. Left BKA stump, allie noted with small 5 x 3 cm open wound on the medial aspect with minimal serosanguineous drainage. Mildly swollen and erythematous Psychiatric Patient has good affect, is cooperative Results: Labs 04/01/24 11:13 04/01/24 11:13 Labs: Short CBC 04/01/24 Range/Units 11:13 WBC 6.4 (3.8-10.6) Thou/mm3 Hgb 10.8 L (13.5-16.0) g/dL Hct 34.9 L (41.0-53.0) % Plt Count 244 D (140-440) Thou/mm3 BMP 04/01/24 11:13 Sodium 141 Potassium 4.2 Chloride 106 Carbon Dioxide 27.6 BUN 21 Creatinine 0.9 Glucose 84 Calcium 8.9 Cardiac Enzymes 04/01/24 Range/Units 11:13 Troponin I < 0.020 (0.0-0.045) ng/mL Liver Function 04/01/24 Range/Units 11:13 Total Bilirubin 0.4 (0.3-1.2) mg/dL AST 13 (0-34) U/L ALT 15 (10-49) U/L Alkaline Phosphatase 131 H (46-116) U/L Albumin 4.0 (3.4-4.8) gm/dL Quality Measures Quality Measures none Advance care planning discussed with:: patient Medications Home Medications and Allergies Home Medications ?Medication ?Instructions ?Recorded ?Confirmed ?Type tamsulosin 0.4 mg capsule 0.4 mg PO QHS 08/02/2103/01 History apixaban 5 mg tablet (Eliquis) 2.5 mg PO BID 11/10/23 12/13/23 History metoprolol succinate 25 mg 25 mg PO QDAY 11/10/2309/16 History tablet,extended release 24 hr hydrocodone 10 mg-acetaminophen 1 tab PO Q6H PRN Break through Pain 12/13/23 03/01/24 History 325 mg tablet atorvastatin 80 mg tablet 80 mg PO QPM 03/01/24 History Allergies Allergy/AdvReac Type Severity Reaction Status Date / Time No Known Allergies Allergy Verified 04/01/24 09:17 Visit Medications Acetaminophen (Acetaminophen 325 Mg Tablet) 1,000 mg PO Q6H PRN PRN Reason: Fever >100.3 or pain Stop: 05/01/24 15:09 Hydrocodone Bitart/Acetaminophen (Hydrocodone/Apap 10/325 Tab) 1 tab PO Q4H PRN PRN Reason: PAIN SCALE 4-10(Mod-Sev Stop: 04/06/24 15:09 Albuterol/Ipratropium (Albuterol/Ipratropium (Duoneb) Rt Nola 3 Ml Nebu) 3 ml INH Q4HR PRN PRN Reason: SHORTNESS OF BREATH OR WHEEZE Stop: 05/01/24 15:09 Heparin Sodium (Porcine) (Heparin Sod Inj 5000 Unit/Ml Vial) 5,000 unit SC BID YARI Stop: 04/15/24 20:59 Piperacillin/Tazobactam/Dextrose (Zosyn) 50 mls @ 12.5 mls/hr IV Q8HR YARI; Protocol Stop: 04/08/24 21:59 Piperacillin/Tazobactam/Dextrose (Zosyn) 50 mls @ 100 mls/hr IV X1 ONE Stop: 04/01/24 15:59 Ondansetron HCl (Ondansetron Inj 2 Mg/Ml Inj 2 Ml) 4 mg IV Q6H PRN; Protocol PRN Reason: NAUSEA OR VOMITING Stop: 05/01/24 15:09 Pharmacy Consult (Vancomycin Pharmacy To Dose 1 Each Each) 1 each IV QDAY PRN PRN Reason: CONSULT Stop: 05/01/24 15:29 Sennosides (Senna Tablet) 1 tab PO QDAY YARI; Protocol Stop: 05/02/24 08:59 Assessment & Plan Plan Patient is a 73-year-old male with a past medical history significant for peripheral arterial disease s/p percutaneous angioplasty, critical limb ischemia s/p left BKA [03/04/2024], BPH, primary hypertension, hyperlipidemia, chronic CVA [2023], chronic diastolic heart failure with preserved EF [>70%], severe pulmonary arterial hypertension, coronary artery disease s/p stents presented with a chief complaint of swollen left stump. Patient follows up with medical technician Dr. Talat Kirby. Patient will be admitted for treatment and management of left lower extremity cellulitis. 1. Left lower extremity cellulitis secondary to left BKA [03/04/2024] 2. Peripheral arterial disease s/p percutaneous angioplasty 3. Critical limb ischemia Patient had follow-up appointment with general surgeon today who recommended to present to the ED for swollen, erythematous left BKA stump. On exam stump erythematous with serosanguineous drainage. Plan: ? Started on Zosyn 3.375 g IV Q8 hourly on [04/01? ? Started on vancomycin IV on [04/01? ? Left lower extremity x-ray ordered to rule out osteomyelitis ? General surgeon, Dr Randhawa consulted. Appreciate recommendations 4. Primary hypertension 5. Hyperlipidemia On admission BP 119/63 Plan: ? Antihypertensives on hold for now 6. Atrial fibrillation?paroxysmal on Eliquis Patient's Vascor high. Home medication Eliquis 2.5 Mg p.o. twice daily On admission EKG significant for sinus bradycardia with frequent PVCs rate 47. Previous EKGs showed a history of atrial fibrillation Plan: ? Eliquis on hold for now in anticipation of possible procedures ? Spoke to pharmacy to inquire about equivalent dosage of heparin for stroke prophylaxis and A-fib. Was told that there is no equivalent dosage of heparin for A-fib stroke prophylaxis. ? Started patient on heparin 5000 units SC every 8 hourly 7. Chronic diastolic heart failure with preserved ejection fraction [>70%] 8. Severe pulmonary arterial hypertension 9. Coronary artery disease s/p stents Last echo completed on 07/06/2023 findings include: Hyperdynamic LV function EF >70%. Grade 1 diastolic dysfunction. Hyperdynamic RV function. RVSP 62 mmHg. Moderate to severe PAH 10. Chronic CVA Patient has history of stroke in 2023 with no residual deficits Patient was on Eliquis and aspirin at home for stroke prophylaxis Plan: ? Aspirin on hold for now in anticipation of possible procedures Health maintenance: Disposition: IV abtibiotics. Suregery recs Diet: Cadiac Lines: pIVs GI Prophylaxis: None Thrombo Prophylaxis: Heparin 5000 U sc Q 8 hrly Code status: FULL CODE Plan of care discussed with Attending Dr. Chávez and PGY2 Dr. Malia Turner MD PGY 1
[2024-04-01] MEDS: PIPER/TAZO 3.375 GM 50 ML IV ×2 (15:48→22:36)
[2024-04-01] MEDS: VANCOMYCIN/NS 1 GM IVPB 200 ML IV ×2 (15:48→21:22)
--- NOTE | 2024-04-01 18:03 | XR_ITS ---
Examination: Left femur 2 views Technique one AP lateral left femur 2 views Exam date and time: April 01, 2019 0507 hrs. Indications: Redness swelling and pain involving the left side today Findings: Superficial femoral artery stents Moderate left hip osteoarthritis No hip or femur fracture Below the knee amputation No neeraj cortical bone destruction Impression: No neeraj cortical bone destruction
--- NOTE | 2024-04-01 19:00 | PC.NURSE ---
PT TAKEN UP TO FLOOR WITHOUT INCIDENT CONNECTED TO TELE. RN AND G[employer] PROCESSING PLANT OPERATOR AT BEDSIDE TO ASSUME CARE.
--- NOTE | 2024-04-01 20:00 | PC.NURSE ---
When doing admission questions. The patient stated that he is from a rehab center. When nurse is trying to reconcile his medication, the patient mentioned to the nurse that he does not know what medication he takes at home and also mentioning that he gets his medication from the rehab facility. Nurse tried to find the packet from the facility to no avail.
[2024-04-01] MEDS: HEPARIN SOD INJ 5000 UNIT/ML VIAL SC (21:13)
[2024-04-02] VITALS (9 sets, daily range): BP systolic 91–126; BP diastolic 51–64; PULSE 46–61; RESP 16–96; TEMP 36.2–36.6; O2SAT 93–98
[2024-04-02] MEDS: MELATONIN 3 MG TABLET PO ×2 (00:03→20:51)
[2024-04-02] MEDS: HYDROcodone/APAP 10/325 TAB PO (01:33)
[2024-04-02] MEDS: PIPER/TAZO 3.375 GM 50 ML IV ×3 (05:04→21:05)
[2024-04-02] MEDS: HEPARIN SOD INJ 5000 UNIT/ML VIAL SC ×3 (05:05→21:08)
[2024-04-02 05:46] LABS: Basophils # (Auto) 0.1 Thou/mm3 (0.0-0.2); Basophils % (Auto) 1 % (0-2.5); Eosinophils # (Auto) 0.3 Thou/mm3 (0.0-0.5); Eosinophils % (Auto) 6 % (0-10); Hematocrit 31.4 % (41.0-53.0); Hemoglobin 9.6 g/dL (13.5-16.0); Immature Granulocytes % (Auto) 0 % (0-0); Immature Granulocytes Auto 0.01 Thou/mm3 (0.00-0.00); Lymphocytes # (Auto) 1.1 Thou/mm3 (1.0-4.8); Lymphocytes % (Auto) 19 % (10-50); Mean Corpuscular HGB Conc 30.6 g/dl (31.0-37.0); Mean Corpuscular Hemoglobin 23.9 pg (25.0-35.0); Mean Corpuscular Volume 78 fL (80-100); Monocytes # (Auto) 0.6 Thou/mm3 (0.0-0.8); Monocytes % (Auto) 10 % (0-12); Neutrophils # (Auto) 3.7 Thou/mm3 (1.8-7.7); Neutrophils % (Auto) 64 % (37-80); Nucleated Red Blood Cell % 0 /100 WBC (0); Platelet Count 205 Thou/mm3 (140-440); RDW Standard Deviation 70.7 fL (35.1-43.9); Red Blood Count 4.01 Miln/mm3 (4.50-5.90); White Blood Count 5.8 Thou/mm3 (3.8-10.6)
[2024-04-02 05:54] LABS: Glucose Estimated Average 105 mg/dL (80-131); Hemoglobin A1C 5.3 % Hgb (4.8-6.0)
--- NOTE | 2024-04-02 06:08 | PC.NURSE ---
Contacted [facility] [phone] regarding patient's medication due to the patient not coming into the unit with a list of medication from the facility. Went over each medication and each mediation was verified.
[2024-04-02 06:35] LABS: Alanine Aminotransferase 10 U/L (10-49); Albumin, Serum 3.3 gm/dL (3.4-4.8); Albumin/Globulin Ratio 1.6 (1.2-2.2); Alkaline Phosphatase 110 U/L (46-116); Anion Gap 4 (7-16); Aspartate Amino Transferase 12 U/L (0-34); BUN/Creatinine Ratio 21 Ratio (12-20); Bilirubin,Total 0.5 mg/dL (0.3-1.2); Blood Urea Nitrogen 15 mg/dL (9-23); Calcium 8.3 mg/dL (8.3-10.6); Calcium (Corrected) 8.9 mg/dL (8.5-10.1); Carbon Dioxide 25.9 mMol/L (20.0-31.0); Cardiac Risk Estimate 1.9 RATIO (4.0-6.7); Chloride 110 mMol/L (98-107); Cholesterol 94 mg/dL (132-200); Creatinine (Component) 0.7 mg/dL (0.6-1.3); Estimated Creatinine Clearance 103.2 mL/min (>60); Globulin 2.1 gm/dL (2.3-3.5); Glucose 87 mg/dL (74-106); HDL Cholesterol 49 mg/dL (40-60); LDL Cholesterol,Calculated 32 mg/dL (0-130); Magnesium 1.8 mg/dL (1.6-2.6); Osmolality,Calculated 279 (275-295); Phosphorous 3.4 mg/dL (2.4-5.1); Potassium 3.7 mMol/L (3.4-5.1); Sodium 140 mMol/L (136-145); Thyroid Stimulating Hormone 1.73 uIU/mL (0.55-4.78); Total Protein 5.4 gm/dL (5.7-8.2); Triglycerides 64 mg/dL (30-150); eGFR > 60 See Note
--- NOTE | 2024-04-02 08:02 | PC.NURSE ---
Made MD Davies aware of pts current hr of 47. Pt comfortable awake alert X4 no complains of abnormal symptoms.
[2024-04-02] MEDS: ACETAMINOPHEN 325 MG TABLET 1000 MG PO (09:12)
[2024-04-02] MEDS: POTASSIUM CHLORIDE 10% 20 MEQ/15 ML UDC 40 MEQ PO (09:15)
[2024-04-02] MEDS: SENNA TABLET 1 TAB PO (09:15)
[2024-04-02] MEDS: Magnesium Sulfate 4 GM Ivpb 4 GM/50 ML BAG IV (09:16)
--- NOTE | 2024-04-02 13:17 | PD.RESPRO ---
Documentation for date of: 04/02/24 Subjective Subjective Interval history: 04/02/2024: No acute overnight events to report. Patient seen and examined in hospital bed, states that there is less pain at the site of the wound. Upon examination, left BKA site has very mild serosanguineous oozing; moreover, purulent discharge no longer noted. Patient's right lower extremity has chronic venous change noted but both motor and sensory functions are evident. Patient denies having any concerning symptoms such as chest pain, shortness of breath or any new headaches/dizziness. Dr Randhawa, general surgeon, is on the case and recommendations are to keep left extremity elevated and to continue antibiotics. Wound referral sent to manage open wound. Exam Vital Signs Temp Pulse Resp BP Pulse Ox O2 Del Method 97.1 F 50 L 18 91/52 L 98 Room Air 04/02/24 12:00 04/02/24 12:00 04/02/24 12:00 04/02/24 12:00 04/02/24 12:00 04/02/24 12:00 Narrative Exam Physical Exam: GENERAL: Awake, answering questions appropriately, appears stated age HEENT: NC/AT. Moist mucosa. PERRLA/EOMI. CARDIO: Heart RRR, no obvious murmurs, no JVD. PULM: No coughing or visible SOB. Lungs CTA B/L. GI: Abdomen soft, NT/ND, +BS. SKIN/MSK/EXT: Patient has a left BKA with allie suture along with serosanguineous oozing, right lower extremity chronic venous changes. No rashes/edema noted, no noted pain on palpation. +Pedal pulse present on the right NEURO: Oriented x3, no focal neurologic deficit, Moves extremities x4. Objective Labs 04/02/24 04:12 04/02/24 04:12 Labs: Laboratory Results - last 24 hr 04/02/24 04:12 WBC 5.8 RBC 4.01 L Hgb 9.6 L Hct 31.4 L MCV 78 L MCH 23.9 L MCHC 30.6 L RDW Std Deviation 70.7 H Plt Count 205 D Neut % (Auto) 64 Lymph % (Auto) 19 [place] % (Auto) 10 Eos % (Auto) 6 Baso % (Auto) 1 Neut # (Auto) 3.7 Lymph # (Auto) 1.1 [place] # (Auto) 0.6 Eos # (Auto) 0.3 Baso # (Auto) 0.1 Immature Gran # (Auto) 0.01 H Absolute Nucleated RBC 0.00 Immature Gran % 0 Nucleated RBC % 0 Sodium 140 Potassium 3.7 D Chloride 110 H Carbon Dioxide 25.9 Anion Gap 4 L BUN 15 Creatinine 0.7 Estim Creat Clear Calc 103.2 eGFR > 60 BUN/Creatinine Ratio [address] Glu mg/dL 105 Hemoglobin A1c 5.3 Calculated Osmolality 279 Calcium 8.3 Corrected Calcium 8.9 Phosphorus 3.4 Magnesium 1.8 Total Bilirubin 0.5 AST 12 ALT 10 Alkaline Phosphatase 110 D Total Protein 5.4 L Albumin 3.3 L D Globulin 2.1 L Albumin/Globulin Ratio 1.6 Triglycerides 64 Cholesterol 94 L LDL Cholesterol, Calc 32 HDL Cholesterol 49 Cholesterol/HDL Ratio 1.9 L TSH 1.73 Quality Measures Quality Measures none Advance care planning discussed with:: patient Assessment & Plan Assessment Current Active Medications: Generic Name Dose Route Start Last Admin Trade Name Freq PRN Reason Stop Dose Admin Acetaminophen 1,000 mg 04/02/24 11:48 Acetaminophen 500 Mg Tablet PO 05/01/24 15:09 Q6H PRN Fever >100.3 or pain (1-3) Hydrocodone Bitart/Acetaminophen 1 tab 04/01/24 15:10 04/02/24 01:33 Hydrocodone/Apap 10/325 Tab PO 04/06/24 15:09 1 tab Q4H PRN Administration PAIN SCALE 4-10(Mod-Sev Albuterol/Ipratropium 3 ml 04/01/24 15:10 Albuterol/Ipratropium (Duoneb) Rt Nola 3 Ml Nebu INH 05/01/24 15:09 Q4HR PRN SHORTNESS OF BREATH OR WHEEZE Heparin Sodium (Porcine) 5,000 unit 04/01/24 22:00 04/02/24 05:05 Heparin Sod Inj 5000 Unit/Ml Vial SC 04/15/24 21:59 5,000 unit Q8HR YARI Administration Piperacillin/Tazobactam/Dextrose 50 mls @ 12.5 mls/hr 04/01/24 22:00 04/02/24 05:04 Zosyn IV 04/08/24 21:59 12.5 mls/hr Q8HR YARI Administration Protocol Vancomycin/Sodium Chloride 200 mls @ 120 mls/hr 04/01/24 22:00 04/01/24 21:22 Vancomycin/Ns 1 Gm Ivpb IV 04/08/24 21:59 120 mls/hr BID@1000,2200 YARI Administration Protocol Melatonin 3 mg 04/01/24 23:50 04/02/24 00:03 Melatonin 3 Mg Tablet PO 05/01/24 23:49 3 mg HS YARI Administration Ondansetron HCl 4 mg 04/01/24 15:10 Ondansetron Inj 2 Mg/Ml Inj 2 Ml IV 05/01/24 15:09 Q6H PRN NAUSEA OR VOMITING Protocol Pharmacy Consult 1 each 04/01/24 15:30 Vancomycin Pharmacy To Dose 1 Each Each IV 05/01/24 15:29 QDAY PRN CONSULT Sennosides 1 tab 04/02/24 09:00 04/02/24 09:15 Senna Tablet PO 05/02/24 08:59 1 tab QDAY YARI Administration Protocol Plan 73-year-old male with a past medical history significant for peripheral arterial disease s/p percutaneous angioplasty, critical limb ischemia s/p left BKA [03/04/2024], BPH, primary hypertension, hyperlipidemia, chronic CVA [2023], chronic diastolic heart failure with preserved EF [>70%], severe pulmonary arterial hypertension, coronary artery disease s/p stents presented with a chief complaint of swollen left stump. Patient follows up with [facility] glass[employer]acer Dr. Talat Kirby. Patient will be admitted for treatment and management of left lower extremity cellulitis. #Left lower extremity cellulitis secondary to left BKA [03/04/2024] #Peripheral arterial disease s/p percutaneous angioplasty #Critical limb ischemia Patient had follow-up appointment with general surgeon today who recommended to present to the ED for swollen, erythematous left BKA stump. On exam stump erythematous with serosanguineous drainage Blood cultures no growth within 24 hours MRSA nares pending Left extremity x-ray shows no neeraj bony involvement Plan: Continue Zosyn 3.375 g IV Q8 hourly Continue vancomycin IV on [04/01? General surgeon, Dr Randhawa consulted. Appreciate recommendations Will keep extremity elevated Wound care referral #Primary hypertension #Hyperlipidemia Patient hypotensive secondary to infection Plan: Antihypertensives on hold for now secondary to patient being hypotensive due to infection We will restart antihypertensive and statin medication on discharge #Atrial fibrillation?paroxysmal on Eliquis Patient's Vascor high. Home medication Eliquis 2.5 Mg p.o. twice daily On admission EKG significant for sinus bradycardia with frequent PVCs rate 47. Previous EKGs showed a history of atrial fibrillation Plan: Continue to hold Eliquis Continue heparin 5000 units every 8 hours #Chronic diastolic heart failure with preserved ejection fraction [>70%] #Severe pulmonary arterial hypertension #Coronary artery disease s/p stents Last echo completed on 07/06/2023 findings include: Hyperdynamic LV function EF >70%. Grade 1 diastolic dysfunction. Hyperdynamic RV function. RVSP 62 mmHg. Moderate to severe PAH No acute exacerbation, patient remained stable Plan: Monitor for any acute changes #Chronic CVA Patient has history of stroke in 2023 with no residual deficits Patient was on Eliquis and aspirin at home for stroke prophylaxis Plan: Aspirin on hold for now in anticipation of possible procedures Health Maintenance: Diet: Cadiac Lines: PIVs GI Prophylaxis: None DVT prophylaxis: Heparin 5000 U sc Q 8hr Dispo: IV abtibiotics. Suregery recs Code: Full Patient seen and assessed with attending Dr. Kyler Davies, PGY-1
[2024-04-02] MEDS: VANCOMYCIN/NS 1 GM IVPB 200 ML IV ×2 (14:07→22:04)
--- NOTE | 2024-04-02 19:50 | PD.RESPRO ---
Documentation for date of: 04/02/24 Exam Vital Signs Temp Pulse Resp BP Pulse Ox O2 Del Method 97.1 F 52 L 18 102/51 L 97 Room Air 04/02/24 16:00 04/02/24 16:00 04/02/24 16:00 04/02/24 16:00 04/02/24 16:00 04/02/24 16:00 Objective Labs 04/02/24 04:12 04/02/24 04:12 Labs: Laboratory Results - last 24 hr 04/02/24 04:12 WBC 5.8 RBC 4.01 L Hgb 9.6 L Hct 31.4 L MCV 78 L MCH 23.9 L MCHC 30.6 L RDW Std Deviation 70.7 H Plt Count 205 D Neut % (Auto) 64 Lymph % (Auto) 19 [place] % (Auto) 10 Eos % (Auto) 6 Baso % (Auto) 1 Neut # (Auto) 3.7 Lymph # (Auto) 1.1 [place] # (Auto) 0.6 Eos # (Auto) 0.3 Baso # (Auto) 0.1 Immature Gran # (Auto) 0.01 H Absolute Nucleated RBC 0.00 Immature Gran % 0 Nucleated RBC % 0 Sodium 140 Potassium 3.7 D Chloride 110 H Carbon Dioxide 25.9 Anion Gap 4 L BUN 15 Creatinine 0.7 Estim Creat Clear Calc 103.2 eGFR > 60 BUN/Creatinine Ratio 21 H [address]ucose [address] Glu mg/dL 105 Hemoglobin A1c 5.3 Calculated Osmolality 279 Calcium 8.3 Corrected Calcium 8.9 Phosphorus 3.4 Magnesium 1.8 Total Bilirubin 0.5 AST 12 ALT 10 Alkaline Phosphatase 110 D Total Protein 5.4 L Albumin 3.3 L D Globulin 2.1 L Albumin/Globulin Ratio 1.6 Triglycerides 64 Cholesterol 94 L LDL Cholesterol, Calc 32 HDL Cholesterol 49 Cholesterol/HDL Ratio 1.9 L TSH 1.73 Quality Measures Quality Measures none Assessment & Plan Assessment Current Active Medications: Generic Name Dose Route Start Last Admin Trade Name Freq PRN Reason Stop Dose Admin Acetaminophen 1,000 mg 04/02/24 11:48 Acetaminophen 500 Mg Tablet PO 05/01/24 15:09 Q6H PRN Fever >100.3 or pain (1-3) Hydrocodone Bitart/Acetaminophen 1 tab 04/01/24 15:10 04/02/24 01:33 Hydrocodone/Apap 10/325 Tab PO 04/06/24 15:09 1 tab Q4H PRN Administration PAIN SCALE 4-10(Mod-Sev Albuterol/Ipratropium 3 ml 04/01/24 15:10 Albuterol/Ipratropium (Duoneb) Rt Nola 3 Ml Nebu INH 05/01/24 15:09 Q4HR PRN SHORTNESS OF BREATH OR WHEEZE Heparin Sodium (Porcine) 5,000 unit 04/01/24 22:00 04/02/24 13:59 Heparin Sod Inj 5000 Unit/Ml Vial SC 04/15/24 21:59 5,000 unit Q8HR YARI Administration Piperacillin/Tazobactam/Dextrose 50 mls @ 12.5 mls/hr 04/01/24 22:00 04/02/24 13:59 Zosyn IV 04/08/24 21:59 12.5 mls/hr Q8HR YARI Administration Protocol Vancomycin/Sodium Chloride 200 mls @ 120 mls/hr 04/01/24 22:00 04/02/24 14:07 Vancomycin/Ns 1 Gm Ivpb IV 04/08/24 21:59 120 mls/hr BID@1000,2200 YARI Administration Protocol Melatonin 3 mg 04/01/24 23:50 04/02/24 00:03 Melatonin 3 Mg Tablet PO 05/01/24 23:49 3 mg HS YARI Administration Ondansetron HCl 4 mg 04/01/24 15:10 Ondansetron Inj 2 Mg/Ml Inj 2 Ml IV 05/01/24 15:09 Q6H PRN NAUSEA OR VOMITING Protocol Pharmacy Consult 1 each 04/01/24 15:30 Vancomycin Pharmacy To Dose 1 Each Each IV 05/01/24 15:29 QDAY PRN CONSULT Sennosides 1 tab 04/02/24 09:00 04/02/24 09:15 Senna Tablet PO 05/02/24 08:59 1 tab QDAY YARI Administration Protocol
[2024-04-02 21:52] LABS: Vancomycin,Trough 14.8 mcg/mL (5.0-10.0)
[2024-04-02] MEDS: ACETAMINOPHEN 500 MG TABLET 1000 MG PO (22:07)
[2024-04-03] VITALS (10 sets, daily range): BP systolic 124–142; BP diastolic 58–77; PULSE 35–61; RESP 11–95; TEMP 36.1–36.6; O2SAT 92–97
--- NOTE | 2024-04-03 02:15 | PC.NURSE ---
Pt went to the restroom to have bowel movement using the wheelchair, tolerated well. After 10 mins pt complaints of pain on his left stump, offered norco but he said [place] doesnt help with his pain. MD Jaimes made aware, came and talked to the pt, new order made for his pain and will carried out.
[2024-04-03] MEDS: oxyCODONE/APAP 5/325 TABLET 1 TAB PO (02:34)
[2024-04-03] MEDS: GABAPENTIN 100 MG CAPSULE PO ×3 (02:34→21:31)
[2024-04-03] MEDS: HEPARIN SOD INJ 5000 UNIT/ML VIAL SC ×2 (05:12→14:23)
[2024-04-03] MEDS: PIPER/TAZO 3.375 GM 50 ML IV ×3 (05:12→21:32)
[2024-04-03 05:39] LABS: Basophils # (Auto) 0.1 Thou/mm3 (0.0-0.2); Basophils % (Auto) 1 % (0-2.5); Eosinophils # (Auto) 0.4 Thou/mm3 (0.0-0.5); Eosinophils % (Auto) 8 % (0-10); Hematocrit 31.7 % (41.0-53.0); Hemoglobin 9.8 g/dL (13.5-16.0); Immature Granulocytes % (Auto) 0 % (0-0); Immature Granulocytes Auto 0.01 Thou/mm3 (0.00-0.00); Lymphocytes # (Auto) 1.2 Thou/mm3 (1.0-4.8); Lymphocytes % (Auto) 22 % (10-50); Mean Corpuscular HGB Conc 30.9 g/dl (31.0-37.0); Mean Corpuscular Hemoglobin 24.3 pg (25.0-35.0); Mean Corpuscular Volume 79 fL (80-100); Monocytes # (Auto) 0.8 Thou/mm3 (0.0-0.8); Monocytes % (Auto) 14 % (0-12); Neutrophils # (Auto) 3.1 Thou/mm3 (1.8-7.7); Neutrophils % (Auto) 56 % (37-80); Nucleated Red Blood Cell % 0 /100 WBC (0); Platelet Count 250 Thou/mm3 (140-440); RDW Standard Deviation 70.2 fL (35.1-43.9); Red Blood Count 4.04 Miln/mm3 (4.50-5.90); White Blood Count 5.5 Thou/mm3 (3.8-10.6)
[2024-04-03 06:14] LABS: Alanine Aminotransferase < 7 U/L (10-49); Albumin, Serum 3.4 gm/dL (3.4-4.8); Albumin/Globulin Ratio 1.5 (1.2-2.2); Alkaline Phosphatase 103 U/L (46-116); Anion Gap 5 (7-16); Aspartate Amino Transferase 14 U/L (0-34); BUN/Creatinine Ratio 19 Ratio (12-20); Bilirubin,Total 0.2 mg/dL (0.3-1.2); Blood Urea Nitrogen 15 mg/dL (9-23); Calcium 8.3 mg/dL (8.3-10.6); Calcium (Corrected) 8.8 mg/dL (8.5-10.1); Carbon Dioxide 26.7 mMol/L (20.0-31.0); Chloride 111 mMol/L (98-107); Creatinine (Component) 0.8 mg/dL (0.6-1.3); Estimated Creatinine Clearance 90.3 mL/min (>60); Globulin 2.2 gm/dL (2.3-3.5); Glucose 85 mg/dL (74-106); Osmolality,Calculated 284 (275-295); Phosphorous 3.8 mg/dL (2.4-5.1); Potassium 4.2 mMol/L (3.4-5.1); Sodium 143 mMol/L (136-145); Total Protein 5.6 gm/dL (5.7-8.2); eGFR > 60 See Note
[2024-04-03] MEDS: ASCORBIC ACID 250 MG TABLET 500 MG PO ×2 (09:28→21:31)
[2024-04-03] MEDS: SENNA TABLET 1 TAB PO (09:28)
[2024-04-03] MEDS: ZINC SULFATE 220 MG CAPSULE PO (09:28)
[2024-04-03] MEDS: MULTIVITAMINS TABLET 1 TAB PO (09:28)
[2024-04-03] MEDS: VANCOMYCIN/NS 1 GM IVPB 200 ML IV ×2 (10:00→21:32)
--- NOTE | 2024-04-03 10:17 | ESDS_ITS ---
<Statement entered by Zachariah Clark MD - 04/04/24 16:29> Agree with plan and examination finding on the note below. Patient seen and examined at bedside today. Labs and imaging reviewed. Patient care discussed with my attending Dr. Chávez and co-resident . Planned Discharge Date 04/03/24 DS: Providers Provider Date of admission: 04/01/24 15:10 Primary care physician: Fernando Calle MD Admitting Provider: Sujey Chávez MD Attending Provider on Admission: Sujey Chávez MD Consults: 04/01/24 17:29 Consult to General Surgery Routine Comment: Consulting Provider: Kashif Randhawa 04/02/24 11:05 Referral Wound Care Routine Comment: s/p L BKA + compression stocking for R leg Attending Provider on DC: Emmanuel Turner MD Discharging Provider: Emmanuel Turner MD DS: Diagnosis Problem List Completed Was Problem List Reviewed/Reconciled?: Yes Hospital Course Hospital Course Hospital course: 73-year-old male with a past medical history significant for peripheral arterial disease s/p percutaneous angioplasty, critical limb ischemia s/p left BKA [03/04/2024], BPH, primary hypertension, hyperlipidemia, chronic CVA [2023], chronic diastolic heart failure with preserved EF [>70%], severe pulmonary arterial hypertension, coronary artery disease s/p stents presented with a chief complaint of swollen left stump. Patient follows up with excel vba developer Dr. Talat Kirby. Patient will be admitted for treatment and management of left lower extremity cellulitis. With regards to patient's left stump infection he was treated with Zosyn 3.375 g IV Q8 hourly and vancomycin 1 g IV twice daily from 04/01 - 04/03. After which patient's edema, erythema and serosanguineous drainage improved. Left extremity x-ray showed no neeraj cortical bone involvement and patient was deemed to be low suspicion for osteomyelitis. General surgeon, Dr Randhawa was consulted who recommended patient to continue with wet on dry dressings. For his atrial fibrillation, Eliquis was initially held in anticipation of possible debridement. Patient was anticoagulated with heparin 5000 units SC Q8 hourly during hospitalization. Will resume his Eliquis upon discharge. All patient's labs are now returning to his baseline. Patient is now clinically stable and fit for discharge back to acute rehab with wound care. Discharge diagnoses: 1. Left stump infection?resolving 2. Peripheral arterial disease s/p percutaneous angioplasty and left BKA 3. Critical limb ischemia 4. Primary hypertension 5. Hyperlipidemia 6. Atrial fibrillation?paroxysmal on Eliquis 7. Chronic diastolic heart failure with preserved ejection fraction [>70%] 8. Severe pulmonary arterial hypertension 9. Coronary artery disease s/p stents 10. Chronic CVA Discharge plan: -You have been started on antibiotic Augmentin. Take 1 tablet twice a day for 12 more days. -You have been started on antibiotic doxycycline. Take 1 tablet twice a day for 12 more days. -We have ordered home health to change your wound dressings. -Please continue taking the rest of your home medication as before. -Please follow up with your PCP within 1 week of discharge. -Please see your Sleeve Setter within 1-2 weeks of discharge to decide on resuming your metoprolol. -If you experience any new, worsening or persistent symptoms either call yur PCP, dial 911 or present to the emergency department. Plan of care discussed with Attending Dr. Chávez and PGY3 Dr. Eduardo Turner MD PGY 1 Time Spent with Patient Time attestation: Total time spent providing and/or coordinating discharge services: Time spent: Greater than 30 minutes (37) Home Health Home Health Referral Orders: 04/03/24 09:57 Home Health Referral Routine Reason For Exam: wound care Home-Bound The patient must either because of illness or injury, need the aid of supportive devices such as crutches, canes, wheelchairs, and walkers; the use of special transportation; or the assistance of another person in order to leave their place of residence; OR have a condition such that leaving his or her home is medically contraindicated. In addition, the patient also meets the following criteria: patient is normally unable to leave the home and leaving home requires considerable taxing effort. Addendum to Home Health Certification Practitioner's Certification: I certify that the patient has been under my care in the hospital and the care of attending physician (see below). We had a [id number]-[id number] encounter on (see date below). My clinical findings indicate that the patient is home bound per the above criteria and the Home Health Services noted in these orders are medically necessary. The primary reason for the [id number]-[id number] encounter is related to the fact that the patient requires home health services. Date Certifying Ynzd-je-Hsor Physician Encounter: 04/01/24 Physician's Name who will Assume Oversight for Services: Fernando Calle Physician's Phone No.who will Assume Oversight for Service: MEDICAL STAFF PHYSICIAN - Community Resources: No PT to Evaluate: No PT to evaluate and provide a treatmnet plan to increase patient's mobility and strength. Wound Care: Yes Home Health RN - Wound Care Order: per wound care team IV Therapy: No RN Safety Evaluation: Yes RN to evaluate and create a plan of care that will produce positive outcomes. Palliative Treatment: No Palliative treatment and evaluate the need for hospice. Home Health Aide - Personal Care: No Home Health Aide to assist with any ADL's. Exam Vital Signs Temp Pulse Resp BP Pulse Ox O2 Del Method 97.0 F 48 L 19 124/65 94 L Room Air 04/03/24 08:00 04/03/24 08:00 04/03/24 08:00 04/03/24 08:00 04/03/24 08:00 04/03/24 08:00 Narrative Exam Physical Exam: GENERAL: Awake, answering questions appropriately, appears stated age HEENT: NC/AT. Moist mucosa. PERRLA/EOMI. CARDIO: Heart RRR, no obvious murmurs, no JVD. PULM: No coughing or visible SOB. Lungs CTA B/L. GI: Abdomen soft, NT/ND, +BS. SKIN/MSK/EXT: Patient has a left BKA with allie suture along with minimal slough, right lower extremity chronic venous changes. No rashes/edema noted, no noted pain on palpation. +Pedal pulse present on the right NEURO: Oriented x3, no focal neurologic deficit, Moves extremities x4. Discharge Plan Plan Patient Disposition: Xfer Skilled Nsg Fac (SNF) Disposition Comment: [place] Care Plan Goals: You have been started on antibiotic Augmentin. Take 1 tablet twice a day for 12 more days. You have been started on antibiotic doxycycline. Take 1 tablet twice a day for 12 more days. We have ordered home health to change your wound dressings. Please continue taking the rest of your home medication as before. Please follow up with your PCP within 1 week of discharge. Please see your Sleeve Setter within 1-2 weeks of discharge to decide on resuming your metoprolol. If you experience any new, worsening or persistent symptoms either call yur PCP, dial 911 or present to the emergency department. Prescriptions/Referrals Prescriptions/Med Rec: New amoxicillin-pot clavulanate 875-125 mg tablet 1 tab PO Q12H Qty: 24 0RF doxycycline hyclate 100 mg capsule 100 mg PO BID Qty: 6 0RF Continued tamsulosin 0.4 mg capsule 0.4 mg PO QHS Eliquis 5 mg tablet 2.5 mg PO BID Patient Comments: TAKE ONE TABLET BY MOUTH TWICE DAILY FOR THE HEART furosemide 40 mg tablet 40 mg PO QDAY 30 Days Qty: 30 3RF hydrocodone-acetaminophen 10-325 mg Tablet 1 tab PO Q6H PRN (Reason: Breakthrough Pain) atorvastatin 80 mg tablet 80 mg PO QPM Patient Comments: TAKE ONE TABLET BY MOUTH AT BEDTIME FOR CHOLESTEROL ascorbic acid (vitamin C) 500 mg capsule 500 mg PO BID 30 Days Qty: 60 0RF melatonin 3 mg Tablet 3 mg PO HS PRN (Reason: Insomnia) 30 Days Qty: 30 0RF zinc sulfate 50 mg zinc (220 mg) Capsule 220 mg PO QDAY 30 Days Qty: 132 0RF polyethylene glycol 3350 [Miralax] 17 gram/dose powder 4 g PO QDAY PRN (Reason: constipation) Qty: 119 0RF ferrous sulfate 325 mg (65 mg iron) tablet 325 mg PO Q OTHER DAY Qty: 30 0RF gabapentin 100 mg capsule 100 mg PO TID Held metoprolol succinate 25 mg tablet extended release 24 hr 25 mg PO QDAY Hold Instructions: Resume on 04/15/24. After seeing excel vba developer Patient Comments: TAKE ONE TABLET BY MOUTH EVERY DAY FOR BLOOD PRESSURE Discontinued doxycycline hyclate 100 mg tablet 100 mg PO Referrals: Fernando Calle MD [Primary Care Provider] - Patient/Caregiver Discharge Instructions Education Materials: Changing Dressing Dc, Discharge Instructions Wound ... Print Language: Nicaraguan Stand Alone Forms: Litzy Award Info., Patient Portal Info Letter Discharge Order Discharge Orders: Discharge (Routine); Ordered 04/03/24 Ordered By: Emmanuel Turner Quality Discharge Quality Measures VTE prophylaxis
--- NOTE | 2024-04-03 11:13 | PC.SS ---
Addendum entered by Airam Parra 04/03/24 15:12: JOHN informed by E resident Dr. Clark that patient was ready to discharge to [facility]. Patient requested that his , Cherelle be contacted. SW contacted Cherelle via telephone call. JOHN introduced self, role and reason for phone call. Cherelle reported that she disagreed with discharge and was concerned with patient's wound, not receiving sufficient IV antibiotics. She reported that if the wound spreads to the bone, then Dr. Randhawa told her that patient would need another surgery. At this time, Cherelle requested [facility]'s phone number to appeal discharge. Original Note: This is 73-year-old, , male who presented to the ED for wound. Patient appeared alert and oriented to self, place and situation. Patient was pleasant, his mood and behavior were ordinary. Patient came from [facility]. Patient is dependent on staff to assist with ADLs due to waiting for a prosthetic for his left leg. Patient reported being able to use a wheelchair. He has at home, a wheelchair, walker, hospital bed and cane. Patient's PCP is Fernando Calle. When medically clear, patient will return to [facility] unless staff can find a bed at [facility] or [facility]. Discharge plan: [facility] with transportation. Medical Decision Maker: Cherelle Khan.
[2024-04-03] MEDS: MELATONIN 3 MG TABLET PO (21:31)
[2024-04-03] MEDS: APIXABAN 2.5 MG TABLET PO (21:31)
[2024-04-03] MEDS: HYDROcodone/APAP 10/325 TAB PO (21:31)
[2024-04-04] VITALS (7 sets, daily range): BP systolic 119–136; BP diastolic 55–72; PULSE 46–75; RESP 14–18; TEMP 36.2–36.5; O2SAT 92–95; BMI 25.1
[2024-04-04] MEDS: PIPER/TAZO 3.375 GM 50 ML IV ×2 (05:30→14:41)
[2024-04-04] MEDS: GABAPENTIN 100 MG CAPSULE PO ×2 (05:30→14:41)
[2024-04-04 05:37] LABS: Basophils # (Auto) 0.1 Thou/mm3 (0.0-0.2); Basophils % (Auto) 1 % (0-2.5); Eosinophils # (Auto) 0.4 Thou/mm3 (0.0-0.5); Eosinophils % (Auto) 7 % (0-10); Hematocrit 31.8 % (41.0-53.0); Hemoglobin 9.9 g/dL (13.5-16.0); Immature Granulocytes % (Auto) 0 % (0-0); Immature Granulocytes Auto 0.01 Thou/mm3 (0.00-0.00); Lymphocytes # (Auto) 1.3 Thou/mm3 (1.0-4.8); Lymphocytes % (Auto) 23 % (10-50); Mean Corpuscular HGB Conc 31.1 g/dl (31.0-37.0); Mean Corpuscular Hemoglobin 24.4 pg (25.0-35.0); Mean Corpuscular Volume 79 fL (80-100); Monocytes # (Auto) 0.7 Thou/mm3 (0.0-0.8); Monocytes % (Auto) 12 % (0-12); Neutrophils # (Auto) 3.3 Thou/mm3 (1.8-7.7); Neutrophils % (Auto) 57 % (37-80); Nucleated Red Blood Cell % 0 /100 WBC (0); Platelet Count 243 Thou/mm3 (140-440); RDW Standard Deviation 70.6 fL (35.1-43.9); Red Blood Count 4.05 Miln/mm3 (4.50-5.90); White Blood Count 5.7 Thou/mm3 (3.8-10.6)
[2024-04-04 07:15] LABS: Alanine Aminotransferase 8 U/L (10-49); Albumin, Serum 3.3 gm/dL (3.4-4.8); Albumin/Globulin Ratio 1.5 (1.2-2.2); Alkaline Phosphatase 101 U/L (46-116); Anion Gap 7 (7-16); Aspartate Amino Transferase 11 U/L (0-34); BUN/Creatinine Ratio 18 Ratio (12-20); Bilirubin,Total 0.4 mg/dL (0.3-1.2); Blood Urea Nitrogen 14 mg/dL (9-23); Calcium 8.5 mg/dL (8.3-10.6); Calcium (Corrected) 9.1 mg/dL (8.5-10.1); Carbon Dioxide 26.8 mMol/L (20.0-31.0); Chloride 109 mMol/L (98-107); Creatinine (Component) 0.8 mg/dL (0.6-1.3); Estimated Creatinine Clearance 90.3 mL/min (>60); Globulin 2.2 gm/dL (2.3-3.5); Glucose 76 mg/dL (74-106); Osmolality,Calculated 284 (275-295); Phosphorous 3.7 mg/dL (2.4-5.1); Potassium 4.1 mMol/L (3.4-5.1); Sodium 143 mMol/L (136-145); Total Protein 5.5 gm/dL (5.7-8.2); eGFR > 60 See Note
[2024-04-04] MEDS: APIXABAN 2.5 MG TABLET PO (08:15)
[2024-04-04] MEDS: MULTIVITAMINS TABLET 1 TAB PO (08:15)
[2024-04-04] MEDS: ZINC SULFATE 220 MG CAPSULE PO (08:16)
[2024-04-04] MEDS: ASCORBIC ACID 250 MG TABLET 500 MG PO (08:16)
[2024-04-04] MEDS: SENNA TABLET 1 TAB PO (08:16)
--- NOTE | 2024-04-04 08:26 | PC.CC ---
Jayleen [id number] In Clinical Review per provider portal.
[2024-04-04 10:16] LABS: Vancomycin,Trough 18.8 mcg/mL (5.0-10.0)
--- NOTE | 2024-04-04 10:47 | PD.RESPRO ---
Documentation for date of: 04/04/24 Exam Vital Signs Temp Pulse Resp BP Pulse Ox O2 Del Method 97.2 F 46 L 18 119/64 94 L Room Air 04/04/24 08:00 04/04/24 08:00 04/04/24 08:00 04/04/24 08:00 04/04/24 08:00 04/04/24 08:00 Objective Labs 04/04/24 04:34 04/04/24 04:34 Labs: Laboratory Results - last 24 hr 04/04/24 04/04/24 04:34 09:09 WBC 5.7 RBC 4.05 L Hgb 9.9 L Hct 31.8 L MCV 79 L MCH 24.4 L MCHC 31.1 RDW Std Deviation 70.6 H Plt Count 243 Neut % (Auto) 57 Lymph % (Auto) 23 [place] % (Auto) 12 Eos % (Auto) 7 Baso % (Auto) 1 Neut # (Auto) 3.3 Lymph # (Auto) 1.3 [place] # (Auto) 0.7 Eos # (Auto) 0.4 Baso # (Auto) 0.1 Immature Gran # (Auto) 0.01 H Absolute Nucleated RBC 0.00 Immature Gran % 0 Nucleated RBC % 0 Sodium 143 Potassium 4.1 Chloride 109 H Carbon Dioxide 26.8 Anion Gap 7 BUN 14 Creatinine 0.8 Estim Creat Clear Calc 90.3 eGFR > 60 BUN/Creatinine Ratio 18 Glucose 76 Calculated Osmolality 284 Calcium 8.5 Corrected Calcium 9.1 Phosphorus 3.7 Magnesium 2.0 Total Bilirubin 0.4 AST 11 ALT 8 L Alkaline Phosphatase 101 Total Protein 5.5 L Albumin 3.3 L Globulin 2.2 L Albumin/Globulin Ratio 1.5 Vancomycin Trough 18.8 H Quality Measures Quality Measures VTE prophylaxis Assessment & Plan Assessment Current Active Medications: Generic Name Dose Route Start Last Admin Trade Name Freq PRN Reason Stop Dose Admin Acetaminophen 1,000 mg 04/02/24 11:48 04/02/24 22:07 Acetaminophen 500 Mg Tablet PO 05/01/24 15:09 1,000 mg Q6H PRN Administration Fever >100.3 or pain (1-3) Hydrocodone Bitart/Acetaminophen 1 tab 04/04/24 10:01 Hydrocodone/Apap 10/325 Tab PO 04/06/24 15:09 Q4H PRN PAIN SCALE 4-10(Mod-Sev Albuterol/Ipratropium 3 ml 04/01/24 15:10 Albuterol/Ipratropium (Duoneb) Rt Nola 3 Ml Nebu INH 05/01/24 15:09 Q4HR PRN SHORTNESS OF BREATH OR WHEEZE Apixaban 2.5 mg 04/03/24 21:00 04/04/24 08:15 Apixaban 2.5 Mg Tablet PO 05/03/24 20:59 2.5 mg BID YARI Administration Ascorbic Acid 500 mg 04/03/24 09:00 04/04/24 08:16 Ascorbic Acid 250 Mg Tablet PO 05/03/24 08:59 500 mg BID YARI Administration Gabapentin 100 mg 04/03/24 14:00 04/04/24 05:30 Gabapentin 100 Mg Capsule PO 05/03/24 13:59 100 mg TID YARI Administration Piperacillin/Tazobactam/Dextrose 50 mls @ 12.5 mls/hr 04/01/24 22:00 04/04/24 05:30 Zosyn IV 04/08/24 21:59 12.5 mls/hr Q8HR YARI Administration Protocol Vancomycin HCl 750 mg/ Sodium 250 mls @ 200 mls/hr 04/04/24 11:00 Chloride IV 04/11/24 10:59 BID@1000,2200 YARI Protocol Melatonin 3 mg 04/01/24 23:50 04/03/24 21:31 Melatonin 3 Mg Tablet PO 05/01/24 23:49 3 mg HS YARI Administration Multivitamins 1 tab 04/03/24 09:00 04/04/24 08:15 Multivitamins Tablet PO 05/03/24 08:59 1 tab QDAY YARI Administration Ondansetron HCl 4 mg 04/01/24 15:10 Ondansetron Inj 2 Mg/Ml Inj 2 Ml IV 05/01/24 15:09 Q6H PRN NAUSEA OR VOMITING Protocol Pharmacy Consult 1 each 04/01/24 15:30 Vancomycin Pharmacy To Dose 1 Each Each IV 05/01/24 15:29 QDAY PRN CONSULT Sennosides 1 tab 04/02/24 09:00 04/04/24 08:16 Senna Tablet PO 05/02/24 08:59 1 tab QDAY YARI Administration Protocol Zinc Sulfate 220 mg 04/03/24 09:00 04/04/24 08:16 Zinc Sulfate 220 Mg Capsule PO 04/17/24 08:59 220 mg QDAY YARI Administration
--- NOTE | 2024-04-04 11:13 | ESPR_ITS ---
Documentation for date of: 04/04/24 Subjective Subjective Narrative: Pt is seen and examined. His pain is improving Exam Vital Signs Temp Pulse Resp BP Pulse Ox O2 Del Method 97.2 F 46 L 18 119/64 94 L Room Air 04/04/24 08:00 04/04/24 08:00 04/04/24 08:00 04/04/24 08:00 04/04/24 08:00 04/04/24 08:00 Constitutional Constitutional: no acute distress Routine Extremities Exam Comments: Left BKA stump swelling improving. Small opening at the medial aspect with drainage. No evidence of abscess Assessment & Plan Diagnosis (1) Cellulitis: Status: Acute Plan Continue IV antibiotics. Keep LLE elevated. Wound care as directed. Call Wide Piece Goods Inspector prosthesis to provide stump regional sales manager.
[2024-04-04] MEDS: Vancomycin Inj 750 MG in SODIUM CHLORIDE 0.9% 250 ML 250 ML 200 MG IV (11:24)
--- NOTE | 2024-04-04 11:43 | PC.SS ---
Addendum entered by Devora Yost 04/04/24 15:30: Patient verbalized he wants to d/c today. He does not want to wait for [employer] appeal process. Original Note: Follow up note: Patient/family filed an appeal yesterday. Results pending . Patient is a resident from [facility]
--- NOTE | 2024-04-04 18:21 | ESDS_ITS ---
<Statement entered by Zachariah Clark MD - 04/05/24 17:15> Agree with plan and examination finding on the note below. Patient seen and examined at bedside today. Labs and imaging reviewed. Patient care discussed with my attending Dr. Chávez and co-resident Dr. Turner. Planned Discharge Date 04/04/24 DS: Providers Provider Date of admission: 04/01/24 15:10 Primary care physician: Fernando Calle MD Admitting Provider: Sujey Chávez MD Attending Provider on Admission: Sujey Chávez MD Consults: 04/01/24 17:29 Consult to General Surgery Routine Comment: Consulting Provider: Kashif Randhawa 04/02/24 11:05 Referral Wound Care Routine Comment: s/p L BKA + compression stocking for R leg Attending Provider on DC: Sujey Chávez MD Discharging Provider: Emmanuel Turner MD DS: Diagnosis Problem List Completed Was Problem List Reviewed/Reconciled?: Yes Hospital Course Hospital Course Hospital course: 73-year-old male with a past medical history significant for peripheral arterial disease s/p percutaneous angioplasty, critical limb ischemia s/p left BKA [03/04/2024], BPH, primary hypertension, hyperlipidemia, chronic CVA [2023], chronic diastolic heart failure with preserved EF [>70%], severe pulmonary arterial hypertension, coronary artery disease s/p stents presented with a chief complaint of swollen left stump. Patient follows up with smoking pipe coater Dr. Talat Kirby. Patient will be admitted for treatment and management of left lower extremity cellulitis. With regards to patient's left stump infection he was treated with Zosyn 3.375 g IV Q8 hourly and vancomycin 1 g IV twice daily from 04/01 - 04/03. After which patient's edema, erythema and serosanguineous drainage improved. Left extremity x-ray showed no neeraj cortical bone involvement and patient was deemed to be low suspicion for osteomyelitis. General surgeon, Dr Randhawa was consulted who recommended patient to continue with wet on dry dressings. For his atrial fibrillation, Eliquis was initially held in anticipation of possible debridement. Patient was anticoagulated with heparin 5000 units SC Q8 hourly during hospitalization. Will resume his Eliquis upon discharge. All patient's labs are now returning to his baseline. Patient is now clinically stable and fit for discharge back to acute rehab with wound care. Discharge diagnoses: 1. Left stump infection?resolving 2. Peripheral arterial disease s/p percutaneous angioplasty and left BKA 3. Critical limb ischemia 4. Primary hypertension 5. Hyperlipidemia 6. Atrial fibrillation?paroxysmal on Eliquis 7. Chronic diastolic heart failure with preserved ejection fraction [>70%] 8. Severe pulmonary arterial hypertension 9. Coronary artery disease s/p stents 10. Chronic CVA Discharge plan: -You have been started on antibiotic Augmentin. Take 1 tablet twice a day for 11 more days. -You have been started on antibiotic doxycycline. Take 1 tablet twice a day for 11 more days. -We have ordered home health to change your wound dressings. -Please continue taking the rest of your home medication as before. -Please follow up with your PCP within 1 week of discharge. -Please see your Network Relations Consultant within 1-2 weeks of discharge to decide on resuming your metoprolol. -If you experience any new, worsening or persistent symptoms either call yur PCP, dial 911 or present to the emergency department. Plan of care discussed with Attending Dr. Chávez and PGY3 Dr. Eduardo Turner MD PGY 1 Time Spent with Patient Time attestation: Total time spent providing and/or coordinating discharge services: Home Health Home Health Referral Orders: 04/03/24 09:57 Home Health Referral Routine Reason For Exam: wound care Home-Bound The patient must either because of illness or injury, need the aid of supportive devices such as crutches, canes, wheelchairs, and walkers; the use of special transportation; or the assistance of another person in order to leave their place of residence; OR have a condition such that leaving his or her home is medically contraindicated. In addition, the patient also meets the following criteria: patient is normally unable to leave the home and leaving home requires considerable taxing effort. Addendum to Home Health Certification Practitioner's Certification: I certify that the patient has been under my care in the hospital and the care of attending physician (see below). We had a yvqj-sr-wivg encounter on (see date below). My clinical findings indicate that the patient is home bound per the above criteria and the Home Health Services noted in these orders are medically necessary. The primary reason for the [id number]-td-[id number] encounter is related to the fact that the patient requires home health services. Date Certifying Gnjh-rn-Nlmt Physician Encounter: 04/01/24 Physician's Name who will Assume Oversight for Services: Fernandooriana Calle Physician's Phone No.who will Assume Oversight for Service: VISITOR SERVICES SPECIALIST - Community Resources: No PT to Evaluate: No PT to evaluate and provide a treatmnet plan to increase patient's mobility and strength. Wound Care: Yes Home Health RN - Wound Care Order: per wound care team IV Therapy: No RN Safety Evaluation: Yes RN to evaluate and create a plan of care that will produce positive outcomes. Palliative Treatment: No Palliative treatment and evaluate the need for hospice. Home Health Aide - Personal Care: No Home Health Aide to assist with any ADL's. Exam Vital Signs Temp Pulse Resp BP Pulse Ox O2 Del Method 97.1 F 52 L 18 136/64 H 94 L Room Air 04/04/24 16:00 04/04/24 16:04/04/24 16:00 04/04/24 16:04/04/24 16:04/04/24 16:00 Narrative Exam Physical Exam: GENERAL: Awake, answering questions appropriately, appears stated age HEENT: NC/AT. Moist mucosa. PERRLA/EOMI. CARDIO: Heart RRR, no obvious murmurs, no JVD. PULM: No coughing or visible SOB. Lungs CTA B/L. GI: Abdomen soft, NT/ND, +BS. SKIN/MSK/EXT: Patient has a left BKA with allie suture along with minimal slough, right lower extremity chronic venous changes. No rashes/edema noted, no noted pain on palpation. +Pedal pulse present on the right NEURO: Oriented x3, no focal neurologic deficit, Moves extremities x4. Discharge Plan Plan Patient Disposition: Xfer Skilled Nsg Fac (SNF) Disposition Comment: [place] Care Plan Goals: You have been started on antibiotic Augmentin. Take 1 tablet twice a day for 11 more days. You have been started on antibiotic doxycycline. Take 1 tablet twice a day for 11 more days. We have ordered home health to change your wound dressings. Please continue taking the rest of your home medication as before. Please follow up with your PCP within 1 week of discharge. Please see your Network Relations Consultant within 1-2 weeks of discharge to decide on resuming your metoprolol. If you experience any new, worsening or persistent symptoms either call yur PCP, dial 911 or present to the emergency department. Prescriptions/Referrals Prescriptions/Med Rec: New amoxicillin-pot clavulanate 875-125 mg tablet 1 tab PO Q12H Qty: 24 0RF doxycycline hyclate 100 mg capsule 100 mg PO BID Qty: 6 0RF Continued tamsulosin 0.4 mg capsule 0.4 mg PO QHS Eliquis 5 mg tablet 2.5 mg PO BID Patient Comments: TAKE ONE TABLET BY MOUTH TWICE DAILY FOR THE HEART furosemide 40 mg tablet 40 mg PO QDAY 30 Days Qty: 30 3RF hydrocodone-acetaminophen 10-325 mg Tablet 1 tab PO Q6H PRN (Reason: Breakthrough Pain) atorvastatin 80 mg tablet 80 mg PO QPM Patient Comments: TAKE ONE TABLET BY MOUTH AT BEDTIME FOR CHOLESTEROL ascorbic acid (vitamin C) 500 mg capsule 500 mg PO BID 30 Days Qty: 60 0RF melatonin 3 mg Tablet 3 mg PO HS PRN (Reason: Insomnia) 30 Days Qty: 30 0RF zinc sulfate 50 mg zinc (220 mg) Capsule 220 mg PO QDAY 30 Days Qty: 132 0RF polyethylene glycol 3350 [Miralax] 17 gram/dose powder 4 g PO QDAY PRN (Reason: constipation) Qty: 119 0RF ferrous sulfate 325 mg (65 mg iron) tablet 325 mg PO Q OTHER DAY Qty: 30 0RF gabapentin 100 mg capsule 100 mg PO TID Held metoprolol succinate 25 mg tablet extended release 24 hr 25 mg PO QDAY Hold Instructions: Resume on 04/15/24. After seeing smoking pipe coater Patient Comments: TAKE ONE TABLET BY MOUTH EVERY DAY FOR BLOOD PRESSURE Discontinued doxycycline hyclate 100 mg tablet 100 mg PO Referrals: Fernando Calle MD [Primary Care Provider] - Patient/Caregiver Discharge Instructions Education Materials: Changing Dressing Dc, Discharge Instructions Wound ... Print Language: Faroese Stand Alone Forms: Litzy Award Info., Patient Portal Info Letter Discharge Order Discharge Orders: Discharge (Routine); Ordered 04/04/24 Ordered By: Emmanuel Turner Quality Discharge Quality Measures VTE prophylaxis
== END 2024-04-04 16:58 | disposition skilled nursing facility (03) | DRG 565 ==
LOC: SERX 14:44 → S3NX 04-03 10:45 → SERHOLD 04-04 06:19
PROVIDERS: Admitting Provider Internal Medicine; Emergency Provider Emergency Medicine; PCP Family Medicine; Visit Provider Internal Medicine
DX: T87.44 Infection of amputation stump, left lower extremity (principal); I50.32 Chronic diastolic (congestive) heart failure; L03.116 Cellulitis of left lower limb; I11.0 Hypertensive heart disease with heart failure; I70.229 Atherosclerosis of native arteries of extremities with rest pain, unspecified extremity; E78.5 Hyperlipidemia, unspecified; I48.0 Paroxysmal atrial fibrillation; I25.10 Atherosclerotic heart disease of native coronary artery without angina pectoris; F15.10 Other stimulant abuse, uncomplicated; I27.21 Secondary pulmonary arterial hypertension; N40.0 Benign prostatic hyperplasia without lower urinary tract symptoms; Z79.01 Long term (current) use of anticoagulants; Y83.5 Amputation of limb(s) as the cause of abnormal reaction of the patient, or of later complication, without mention of misadventure at the time of the procedure; Z89.512 Acquired absence of left leg below knee; Z86.73 Personal history of transient ischemic attack (TIA), and cerebral infarction without residual deficits; Z95.5 Presence of coronary angioplasty implant and graft; Z85.46 Personal history of malignant neoplasm of prostate; Z92.3 Personal history of irradiation; Z87.891 Personal history of nicotine dependence
CPT/HCPCS: 36415; 71045; 73552; 80053; 80061; 80202; 83036; 83605; 83690; 83735; 83880; 84100; 84145; 84443; 84484; 85025; 85610; 85730; 87040; 87081; 93225; J1643; J2543; J3370; J3371; J3475; J7050; A9270

== ENCOUNTER → 2024-05-31 | Outpatient (CLI) | payer MEDICARE, MEDICAID, SELFPAY ==
--- NOTE | 2024-05-31 | XR_ITS ---
Examination: Venous Doppler examination Venous reflux study Exam date and time: May 31, 2024 0945 hrs. Indications: Venous stasis dermatitis, below the knee amputation on the left 4 months ago Technique And Findings: Doppler sonographic images of the deep venous systems Nonocclusive thrombus in the right proximal and mid superficial femoral vein, right popliteal posterior tibial peroneal veins No reflux in the superficial venous system Nonocclusive thrombus in the left mid superficial femoral vein left popliteal vein Impression: Positive for DVT bilaterally as above
== END | disposition home or self-care (01) ==
PROVIDERS: PCP Family Medicine; Referring Provider Surgery Vascular Surgery; Visit Provider Surgery Vascular Surgery
DX: I82.403 Acute embolism and thrombosis of unspecified deep veins of lower extremity, bilateral (principal)
CPT/HCPCS: 93970

== ENCOUNTER → 2024-09-27 | Outpatient (CLI) | payer MEDICARE, MEDICAID, SELFPAY | END | disposition home or self-care (01) | PROVIDERS: PCP Family Medicine; Referring Provider Family Medicine; Visit Provider Student in an Organized Health Care Education/Training Program | DX: S81.801A Unspecified open wound, right lower leg, initial encounter (principal); X58.XXXA Exposure to other specified factors, initial encounter; R60.0 Localized edema; L97.811 Non-pressure chronic ulcer of other part of right lower leg limited to breakdown of skin; I73.9 Peripheral vascular disease, unspecified; I25.10 Atherosclerotic heart disease of native coronary artery without angina pectoris; I10 Essential (primary) hypertension; Z86.73 Personal history of transient ischemic attack (TIA), and cerebral infarction without residual deficits; F17.200 Nicotine dependence, unspecified, uncomplicated; F19.10 Other psychoactive substance abuse, uncomplicated; Z89.512 Acquired absence of left leg below knee | CPT/HCPCS: 29581; 99213; A9270; G0463 ==

== ENCOUNTER → 2024-10-04 | Outpatient (CLI) | payer MEDICARE, MEDICAID, SELFPAY | END | disposition home or self-care (01) | LOC: SWHD 12:51 | PROVIDERS: PCP Family Medicine; Referring Provider Family Medicine; Visit Provider Student in an Organized Health Care Education/Training Program | DX: S81.801A Unspecified open wound, right lower leg, initial encounter (principal); X58.XXXA Exposure to other specified factors, initial encounter; R60.0 Localized edema; L97.811 Non-pressure chronic ulcer of other part of right lower leg limited to breakdown of skin; I73.9 Peripheral vascular disease, unspecified; I25.10 Atherosclerotic heart disease of native coronary artery without angina pectoris; I10 Essential (primary) hypertension; Z86.73 Personal history of transient ischemic attack (TIA), and cerebral infarction without residual deficits; F17.200 Nicotine dependence, unspecified, uncomplicated; F19.10 Other psychoactive substance abuse, uncomplicated; Z89.512 Acquired absence of left leg below knee | CPT/HCPCS: 29580; A9270 ==

== ENCOUNTER → 2024-10-11 | Outpatient (CLI) | payer MEDICARE, MEDICAID, SELFPAY | END | disposition home or self-care (01) | LOC: SWHD 12:40 | PROVIDERS: PCP Family Medicine; Referring Provider Family Medicine; Visit Provider Student in an Organized Health Care Education/Training Program | DX: S81.801A Unspecified open wound, right lower leg, initial encounter (principal); X58.XXXA Exposure to other specified factors, initial encounter; L97.811 Non-pressure chronic ulcer of other part of right lower leg limited to breakdown of skin; R60.0 Localized edema; I73.9 Peripheral vascular disease, unspecified; I25.10 Atherosclerotic heart disease of native coronary artery without angina pectoris; I10 Essential (primary) hypertension; Z86.73 Personal history of transient ischemic attack (TIA), and cerebral infarction without residual deficits; F17.200 Nicotine dependence, unspecified, uncomplicated; F19.10 Other psychoactive substance abuse, uncomplicated; Z89.512 Acquired absence of left leg below knee | CPT/HCPCS: 29580; A9270 ==

== ENCOUNTER → 2024-10-18 | Outpatient (CLI) | payer MEDICARE, MEDICAID, SELFPAY | END | disposition home or self-care (01) | LOC: SWHD 13:48 | PROVIDERS: PCP Family Medicine; Referring Provider Family Medicine; Visit Provider Student in an Organized Health Care Education/Training Program | DX: S81.801A Unspecified open wound, right lower leg, initial encounter (principal); X58.XXXA Exposure to other specified factors, initial encounter; L97.811 Non-pressure chronic ulcer of other part of right lower leg limited to breakdown of skin; R60.0 Localized edema; I73.9 Peripheral vascular disease, unspecified; I25.10 Atherosclerotic heart disease of native coronary artery without angina pectoris; I10 Essential (primary) hypertension; Z86.73 Personal history of transient ischemic attack (TIA), and cerebral infarction without residual deficits; F17.200 Nicotine dependence, unspecified, uncomplicated; F19.10 Other psychoactive substance abuse, uncomplicated; Z89.512 Acquired absence of left leg below knee | CPT/HCPCS: 29580; A9270 ==

== ENCOUNTER → 2024-10-25 | Outpatient (CLI) | payer MEDICARE, MEDICAID, SELFPAY | END | disposition home or self-care (01) | LOC: SWHD 13:38 | PROVIDERS: PCP Family Medicine; Referring Provider Family Medicine; Visit Provider Student in an Organized Health Care Education/Training Program | DX: S81.801A Unspecified open wound, right lower leg, initial encounter (principal); X58.XXXA Exposure to other specified factors, initial encounter; L97.811 Non-pressure chronic ulcer of other part of right lower leg limited to breakdown of skin; R60.0 Localized edema; I73.9 Peripheral vascular disease, unspecified; I25.10 Atherosclerotic heart disease of native coronary artery without angina pectoris; I10 Essential (primary) hypertension; Z86.73 Personal history of transient ischemic attack (TIA), and cerebral infarction without residual deficits; F17.200 Nicotine dependence, unspecified, uncomplicated; F19.10 Other psychoactive substance abuse, uncomplicated; Z89.512 Acquired absence of left leg below knee | CPT/HCPCS: 29580; A9270 ==

== ENCOUNTER → 2024-11-01 | Outpatient (CLI) | payer MEDICARE, MEDICAID, SELFPAY | END | disposition home or self-care (01) | LOC: SWHD 13:51 | PROVIDERS: PCP Family Medicine; Referring Provider Family Medicine; Visit Provider Student in an Organized Health Care Education/Training Program | DX: S81.801A Unspecified open wound, right lower leg, initial encounter (principal); X58.XXXA Exposure to other specified factors, initial encounter; L97.811 Non-pressure chronic ulcer of other part of right lower leg limited to breakdown of skin; R60.0 Localized edema; I73.9 Peripheral vascular disease, unspecified; I25.10 Atherosclerotic heart disease of native coronary artery without angina pectoris; Z86.73 Personal history of transient ischemic attack (TIA), and cerebral infarction without residual deficits; F17.200 Nicotine dependence, unspecified, uncomplicated; F19.10 Other psychoactive substance abuse, uncomplicated; Z89.512 Acquired absence of left leg below knee | CPT/HCPCS: 29581 ==

== ENCOUNTER → 2024-11-08 | Outpatient (CLI) | payer MEDICARE, MEDICAID, SELFPAY | END | disposition home or self-care (01) | LOC: SWHD 13:31 | PROVIDERS: PCP Family Medicine; Referring Provider Family Medicine; Visit Provider Surgery | DX: S81.801A Unspecified open wound, right lower leg, initial encounter (principal); X58.XXXA Exposure to other specified factors, initial encounter; L97.811 Non-pressure chronic ulcer of other part of right lower leg limited to breakdown of skin; R60.0 Localized edema; I73.9 Peripheral vascular disease, unspecified; I25.10 Atherosclerotic heart disease of native coronary artery without angina pectoris; I10 Essential (primary) hypertension; Z86.73 Personal history of transient ischemic attack (TIA), and cerebral infarction without residual deficits; F17.200 Nicotine dependence, unspecified, uncomplicated; F19.10 Other psychoactive substance abuse, uncomplicated; Z89.512 Acquired absence of left leg below knee | CPT/HCPCS: 99212; G0463 ==

== ENCOUNTER 2024-11-11 19:10 | Emergency (ER) | payer MEDICARE, MEDICAID, SELFPAY ==
[2024-11-11 19:21] VITALS: PULSE 84; RESP 16; O2SAT 99; BMI 25.4
--- NOTE | 2024-11-11 19:27 | EKG_ITS ---
[facility] Test Date: 2024-11-11 Pat Name: JENNA VO Department: Room: - Gender: Male C Web Developer: : 1950 Requested By: Checo Jaimes Order Number: [id number] Reading MD: Checo Jaimes Measurements Intervals Sprakers Rate: 60 P: 83 RI: 252 QRS: -57 QRSD: 113 T: -14 QT: 426 QTc: 429 Interpretive Statements SINUS RHYTHM WITH FIRST DEGREE AV BLOCK LEFT AXIS DEVIATION [QRS AXIS < -30] LOW QRS VOLTAGE IN PRECORDIAL LEADS [QRS DEFLECTION < 1.0 mV IN CHEST LEADS] POSSIBLE ANTERIOR MYOCARDIAL INFARCTION , OF INDETERMINATE AGE [30 ms Q WAVE IN V3/V4, OR R < 0.2 mV IN V4] MODERATE T-WAVE ABNORMALITY, CONSIDER LATERAL ISCHEMIA [-0.1+ mV T-WAVE IN I/aVL/V5/V6] Compared to ECG 04/01/2024 11:05:34 First degree AV block now present Left-axis deviation now present Low QRS voltage now present T-wave abnormality now present Possible ischemia now present Sinus bradycardia no longer present Ventricular premature complex(es) no longer present Left anterior fascicular block no longer present Myocardial infarct finding still present /store/S0/[id number].pdf
--- NOTE | 2024-11-11 19:28 | PD.EDEXREM ---
ED Extremity Problem RME/HPI General Chief complaint: Extremity Problem,Nontraumatic Stated complaint: R LEG PAIN Time Seen by Provider: 11/11/24 19:24 Source: patient and EMS Arrival date/time: 11/11/24 19:10 RME / HPI RME / HPI Narrative: Mr. Khan is a 74-year-old male with past medical history of severe peripheral arterial disease status post PCI, critical limb ischemia status post left BKA 02/2024, BPH, hypertension, hyperlipidemia, CVA 2023, diastolic heart failure with preserved ejection fraction, EF greater than 70%, severe pulmonary arterial hypertension, coronary artery disease status post stent follows Dr. Kirby and chronic anemia who presented to [facility] emergency department on 11/11/2024 with a chief complaint of right limb pain. Patient reports that he was working with physical therapy when he started experiencing pain in his right leg, complains of tenderness around the right hip joint and generalized pain of the right leg. He denies any shortness of breath chest pain headache dizziness and palpitations. Related Data Home Medications ?Medication ?Instructions ?Recorded ?Confirmed tamsulosin 0.4 mg capsule 0.4 mg PO QHS 08/02/21 04/02/24 apixaban 5 mg tablet (Eliquis) 2.5 mg PO BID 11/10/23 04/02/24 metoprolol succinate 25 mg 25 mg PO QDAY 11/10/23 04/02/24 tablet,extended release 24 hr Held on 04/03/24. Instructions: Resume on 04/15/24. After seeing patient service representative hydrocodone 10 mg-acetaminophen 1 tab PO Q6H PRN Breakthrough Pain 12/13/23 04/02/24 325 mg tablet atorvastatin 80 mg tablet 80 mg PO QPM 03/01/24 04/02/24 gabapentin 100 mg capsule 100 mg PO TID 04/02/24 04/02/24 Previous Rx's ?Medication ?Instructions ?Recorded furosemide 40 mg tablet 40 mg PO QDAY 30 days #30 tabs 11/16/23 ferrous sulfate 325 mg (65 mg 325 mg PO Q OTHER DAY #30 tabs 03/10/24 iron) tablet polyethylene glycol 3350 17 4 g PO QDAY PRN constipation #119 03/10/24 gram/dose oral powder (Miralax) grams amoxicillin 875 mg-potassium 1 tab PO Q12H #24 tabs 04/03/24 clavulanate 125 mg tablet doxycycline hyclate 100 mg capsule 100 mg PO BID #6 caps 04/03/24 Allergies Allergy/AdvReac Type Severity Reaction Status Date / Time No Known Allergies Allergy Verified 11/11/24 19:28 Review of Systems Review of Systems Systems Reviewed: All systems reviewed, normal except as documented Past Medical History Past Medical History Comments PMH COMMENT: Past medical history: Peripheral arterial disease s/p percutaneous angioplasty Critical limb ischemia s/p left BKA [03/04/2024] BPH Primary hypertension Hyperlipidemia CVA [2023] Chronic diastolic heart failure with preserved ejection fraction [>70%] Severe pulmonary arterial hypertension CAD s/p stents Chronic Anemia Past surgical history: Prostate cancer s/p radiation at [place] 2016 - now in remission Allergies: NKFDA Social history: Occupational History: No retired. Previously a [employer] Education Level: Attended 2 years college, did not graduate. Marital Status: Tobacco use: Quit 10 years ago. Previously approximately [id number] history ETHO use: Approximately 1 drink per month Illicit drug use: Denies Social History Note: lives alone Family History: Father?stroke ED Exam Narrative Physical exam: Physical Exam General: Awake and in no acute distress. Conversational and non-toxic appearing. HEENT: Normocephalic, atraumatic, mucous membranes moist. Heart: Regular rate and rhythm, no murmurs. Lungs: Clear to auscultation with no wheezing or crackles. Abdomen: Soft, nondistended, nontender, positive bowel sounds. ?No guarding or rebound tenderness. Neurologic: Alert and oriented x3, no gross neurological deficit, and patient able to move all 4 extremities. Extremities: Point tenderness noted right hip, suspicion of greater trochanteric pain syndrome. Skin: No rash or ecchymoses. Course Quality Measures none Orders Category Date Time Status Squad Boss Q4H START 00 Care 11/11/24 19:27 Completed Continuous Pulse Oximetry NOW Care 11/11/24 19:27 Completed EKG (ED ONLY) *Do not use* NOW Care 11/11/24 19:[address] pelvis wo con Stat Exams 11/11/24 19:54 Completed EKG (ED Only) Stat Exams 11/11/24 19:27 Draft XR femur RT 2V Stat Exams 11/11/24 19:42 Completed XR foot comp RT min 3V Stat Exams 11/11/24 19:42 Completed XR knee limited RT 2V Stat Exams 11/11/24 19:42 Completed XR tibia fibula RT 2V Stat Exams 11/11/24 19:42 Completed CBC Stat Lab 11/11/24 19:48 Completed CK [Creatine Kinase] Stat Lab 11/11/24 19:48 Completed CMP [Comprehensive Metabolic Panel] Stat Lab 11/11/24 19:48 Completed INR [Prothrombin Time with INR] Stat Lab 11/11/24 19:48 Completed Lactate (Lactic Acid) Stat Lab 11/11/24 19:48 Completed Magnesium Stat Lab 11/11/24 19:48 Completed PTT [Partial Thromboplastin Time] Stat Lab 11/11/24 19:48 Completed Vital Signs Vital signs: Vital Signs Temperature 97.9 F 11/11/24 19:29 Pulse Rate 72 11/11/24 19:29 Respiratory Rate 21 H 11/11/24 19:29 Blood Pressure 140/90 H 11/11/24 19:29 Pulse Oximetry (%) 98 11/11/24 19:29 Oxygen Delivery Method Room Air 11/11/24 19:29 Extremity Problem MDM Narrative MDM Narrative:: #Greater trochanteric pain syndrome #Hip strain #Peripheral arterial disease #Status post left BKA 74-year-old male past medical history as above presented with a chief complaint of right leg pain and has hip, 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 bili AST ALT normal alk phos 123 CK protein albumin globulin normal X-ray femur foot knee tibia-fibula right extremity are negative for any acute fractures CT pelvis negative for acute fracture Patient's pain was well-controlled throughout the ED course did not require any medication vitals monitored closely throughout the ED course stable MYNOR test at bedside positive Patient's symptoms likely secondary to greater trochanteric pain syndrome he was given instructions recommend extra strength Tylenol for pain management and maintain adequate hydration Stable for disharge Case discussed with Attending Physician Dr. Grisel Jaimes MD Internal Medicine PGY-2 Disclaimer: This note was dictated by speech recognition. Minor errors in fuel quality tech may be present due to voice recognition software. Patient data External records reviewed:: [facility] previous records and EMS form Clinical information provided by:: patient Social determinants that could affect healthcare access:: none Patient has the following chronic illnesses:: As Above How is presenting disease/condition affected by chronic disease/condition?: exacerbated by Evaluation data The following diagnostics were reviewed and interpreted by me:: lab results, radiology exam(s) and EKG tracing(s) Lab and/or radiology exams considered but not ordered:: None Interpretation Summary: CBC WBC 6.5, hemoglobin 12.8, platelet count 224 Coags: INR 1.1 PT 11.5 APTT 28.1 Chemistry: Sodium 146, potassium 4.2, chloride 111, bicarb 26.5, anion gap 9 BUN 22 creatinine 1.0 GFR greater than 60, glucose 105 osmolality 293 lactate 1.4, corrected calcium 9.5 magnesium 1.9 T. bili AST ALT normal alk phos 123 CK protein albumin globulin normal X-ray femur foot knee tibia-fibula right extremity are negative for any acute fractures CT pelvis negative for acute fracture Medications / Prescriptions Medications or Prescriptions considered but not ordered:: None Medication administrations:: None Consultations Consultation(s) initiated? (list below): No Diagnosis Most likely diagnosis given after review of the tests above:: Greater Trochanter Pain Syndrome, Iliotibial Band syndrome, hip strain Admission Indicated Admission indicated?: not indicated Admission Request Was there a request for admission?: No Disposition Plan Disposition Plan: Discharge Discharge Attestation Discharge Attestation: The patient and all family members were given an opportunity to ask questions and understood the discharge instructions. Discharge instructions specifically effects, indications for sooner follow up or return to the emergency department, and the expected course of current diagnosis. Patient condition: Stable Discharge Plan Plan Patient Disposition: HOME (Self Care) Patient condition on transfer: Stable Health Concerns: - You were seen in the emergency department today for right leg pain, we obtained a CT scan of your pelvis and x-rays of your right leg which were negative for any acute fractures. - Your pain is consistent with greater trochanteric pain syndrome, MYNOR test was positive, recommend following up with physical therapy to modify your physical therapy regimen and take [id number] Tylenol extra strength 500 mg 4 times a day as needed for pain. - Recommend following up with primary care physician in 1 week, obtain referral to orthopedic surgeon if your symptoms persist - Follow-up with your patient service representative as pain may be secondary to peripheral arterial disease - Return to emergency department if your symptoms worsen - We have made no changes to your home medication Prescriptions/Referrals Prescriptions/Med Rec: No Action tamsulosin 0.4 mg capsule 0.4 mg PO QHS metoprolol succinate 25 mg tablet extended release 24 hr 25 mg PO QDAY Patient Comments: TAKE ONE TABLET BY MOUTH EVERY DAY FOR BLOOD PRESSURE Eliquis 5 mg tablet 2.5 mg PO BID Patient Comments: TAKE ONE TABLET BY MOUTH TWICE DAILY FOR THE HEART furosemide 40 mg tablet 40 mg PO QDAY 30 Days Qty: 30 3RF hydrocodone-acetaminophen 10-325 mg Tablet 1 tab PO Q6H PRN (Reason: Breakthrough Pain) atorvastatin 80 mg tablet 80 mg PO QPM Patient Comments: TAKE ONE TABLET BY MOUTH AT BEDTIME FOR CHOLESTEROL polyethylene glycol 3350 [Miralax] 17 gram/dose powder 4 g PO QDAY PRN (Reason: constipation) Qty: 119 0RF ferrous sulfate 325 mg (65 mg iron) tablet 325 mg PO Q OTHER DAY Qty: 30 0RF gabapentin 100 mg capsule 100 mg PO TID amoxicillin-pot clavulanate 875-125 mg tablet 1 tab PO Q12H Qty: 24 0RF doxycycline hyclate 100 mg capsule 100 mg PO BID Qty: 6 0RF Referrals: Fernando Calle MD [Primary Care Provider, Family Practice] - In 1 week Problem List Clinical Impression: Greater trochanteric pain syndrome, Hip strain Patient/Caregiver Discharge Instructions Discharge Activity: as per physical therapy Education Materials: ED Hip Strain Print Language: Portuguese Stand Alone Forms: [employer] Award Info., Patient Portal Info Letter
[2024-11-11 19:29] VITALS: BP 140/90; PULSE 72; RESP 21; TEMP 36.6; O2SAT 98
--- NOTE | 2024-11-11 19:42 | XR_ITS ---
Examination: Foot, right, 3 views Technique: AP, oblique, lateral views foot, 3 views Date and time of exam: November 11, 20242 hrs. Indications: Right foot pain beginning one week ago. Findings: Moderate osteoarthritis first metatarsophalangeal joint as well as first tarsometatarsal joint No erosive arthritis. No fracture. No cortical bone destruction 10 mm plantar bony calcaneal spur Moderate osteoarthritis tibiotalar joint Impression: Osteoarthritis as above Large plantar bony calcaneal spur
--- NOTE | 2024-11-11 19:42 | XR_ITS ---
Examination: Tibia-Fibula, right , 2 views Technique: Tibia-fibula AP lateral 2 views Date and time of exam: November 11, 2024 1952 hrs. Indications: Lower leg pain one week no trauma. Findings: Prominent osteopenia. Partial visualization knee arthroplasty with satisfactory alignment Moderate narrowing tibiotalar joint No fracture. No cortical bone destruction Impression: Moderate narrowing tibiotalar joint No fracture or cortical bone destruction
--- NOTE | 2024-11-11 19:42 | XR_ITS ---
Examination: Right femur 2 views Technique one AP lateral right femur 2 views Date and time: November 11, 20245 hrs. Indications: Right leg pain severe one week. Findings: Moderate to advanced right hip osteoarthritis No hip or femoral shaft fracture Total right knee arthroplasty with satisfactory alignment No cortical bone destruction Impression: Moderate to advanced right hip osteoarthritis
--- NOTE | 2024-11-11 19:42 | XR_ITS ---
Examination: Right knee 2 views Technique: AP lateral right knee 2 views Date and time: November 11, 20242003 hrs. Indications: Right knee pain beginning one week ago. Findings: Total right knee arthroplasty. Satisfactory alignment. No fracture. Moderate osteopenia. Impression: Total right knee arthroplasty with satisfactory alignment
--- NOTE | 2024-11-11 19:54 | XR_ITS ---
Examination: CT pelvis without intravenous contrast. 2-D sagittal and coronal reconstructions. Date and time of exam:November 11, 2024, 2022 hrs. Indications: Sudden onset right hip pain today CTDI: vol (mGy) :8.73 DLP: (mGycm) : 397 Technique: Multiple 3 mm axial sections of the pelvis have been obtained with the 64 slice high resolution scanner. 2-D sagittal and coronal reconstructions. Low dose protocols were performed. One or more of the following dose reduction techniques were used; automated exposure control, adjustment of the mA and/or KV according to patient size, use of iterative reconstruction technique. Findings: Moderate narrowing hip joints Status post operative reduction internal fixation left hip fracture The intertrochanteric fracture lines, coronal image 118 are still visible, clinical correlation advised Impression: Moderate bilateral hip osteoarthritis No right hip fracture Status post operative reduction internal fixation left hip fracture, the intertrochanteric left hip fracture lines are still visible, I do not have the history of the date of the operative reduction of the left hip fracture, the appearance should be clinically correlated No acute right or left hip fracture Sacral segments and iliac bones appear intact Acetabular regions and anterior rami intact
[2024-11-11 20:00] LABS: Lactate (Lactic Acid) 1.4 mMol/L (0.4-2.0)
[2024-11-11 20:17] LABS: INR 1.1 (0.9-1.3); Partial Thromboplastin Time 28.1 Seconds (22.0-36.0); Prothrombin Time 11.5 Seconds (9.0-12.2)
[2024-11-11 20:20] LABS: Alanine Aminotransferase 11 U/L (10-49); Albumin, Serum 4.2 gm/dL (3.4-4.8); Albumin/Globulin Ratio 1.8 (1.2-2.2); Alkaline Phosphatase 123 U/L (46-116); Anion Gap 9 (7-16); Aspartate Amino Transferase 14 U/L (0-34); BUN/Creatinine Ratio 22 Ratio (12-20); Bilirubin,Total 0.4 mg/dL (0.3-1.2); Blood Urea Nitrogen 22 mg/dL (9-23); Calcium 9.5 mg/dL (8.3-10.6); Calcium (Corrected) 9.5 mg/dL (8.5-10.1); Carbon Dioxide 26.5 mMol/L (20.0-31.0); Chloride 111 mMol/L (98-107); Creatine Kinase 71 U/L (34-171); Creatinine (Component) 1.0 mg/dL (0.6-1.3); Estimated Creatinine Clearance 71.1 mL/min (>60); Globulin 2.4 gm/dL (2.3-3.5); Glucose 105 mg/dL (74-106); Magnesium 1.9 mg/dL (1.6-2.6); Osmolality,Calculated 293 (275-295); Potassium 4.2 mMol/L (3.4-5.1); Sodium 146 mMol/L (136-145); Total Protein 6.6 gm/dL (5.7-8.2); eGFR > 60 See Note
[2024-11-11 20:35] LABS: Basophils # (Auto) 0.0 Thou/mm3 (0.0-0.2); Basophils % (Auto) 1 % (0-2.5); Eosinophils # (Auto) 0.3 Thou/mm3 (0.0-0.5); Eosinophils % (Auto) 4 % (0-10); Hematocrit 38.9 % (41.0-53.0); Hemoglobin 12.8 g/dL (13.5-16.0); Immature Granulocytes Auto 0.01 Thou/mm3 (0.00-0.00); Lymphocytes # (Auto) 1.0 Thou/mm3 (1.0-4.8); Lymphocytes % (Auto) 15 % (10-50); Mean Corpuscular HGB Conc 32.9 g/dl (31.0-37.0); Mean Corpuscular Hemoglobin 29.5 pg (25.0-35.0); Mean Corpuscular Volume 90 fL (80-100); Monocytes # (Auto) 0.8 Thou/mm3 (0.0-0.8); Monocytes % (Auto) 12 % (0-12); Neutrophils # (Auto) 4.5 Thou/mm3 (1.8-7.7); Neutrophils % (Auto) 68 % (37-80); Nucleated Red Blood Cell # 0.00 Thou/mm3 (0.00-0.00); Nucleated Red Blood Cell % 0 /100 WBC (0); Platelet Count 224 Thou/mm3 (140-440); RDW Standard Deviation 47.0 fL (35.1-43.9); Red Blood Count 4.34 Miln/mm3 (4.50-5.90); White Blood Count 6.5 Thou/mm3 (3.8-10.6)
[2024-11-11 23:16] VITALS: PULSE 65; RESP 19
== END 2024-11-11 23:17 | disposition home or self-care (01) ==
PROVIDERS: Emergency Provider Emergency Medicine; PCP Family Medicine
DX: S76.011A Strain of muscle, fascia and tendon of right hip, initial encounter (principal); M79.671 Pain in right foot; M25.561 Pain in right knee; M79.661 Pain in right lower leg; M79.651 Pain in right thigh; I25.10 Atherosclerotic heart disease of native coronary artery without angina pectoris; I11.0 Hypertensive heart disease with heart failure; I50.32 Chronic diastolic (congestive) heart failure; I73.9 Peripheral vascular disease, unspecified; X58.XXXA Exposure to other specified factors, initial encounter; Z87.891 Personal history of nicotine dependence; Z79.01 Long term (current) use of anticoagulants; Z95.5 Presence of coronary angioplasty implant and graft
CPT/HCPCS: 36415; 72192; 73552; 73560; 73590; 73630; 80053; 81001; 82550; 83605; 83735; 85025; 85610; 85730; 93005; 99284

== ENCOUNTER → 2024-11-15 | Outpatient (CLI) | payer MEDICARE, MEDICAID, SELFPAY | END | disposition home or self-care (01) | LOC: SWHD 12:54 | PROVIDERS: PCP Family Medicine; Referring Provider Family Medicine; Visit Provider Student in an Organized Health Care Education/Training Program | DX: S81.801A Unspecified open wound, right lower leg, initial encounter (principal); X58.XXXA Exposure to other specified factors, initial encounter; L97.811 Non-pressure chronic ulcer of other part of right lower leg limited to breakdown of skin; R60.0 Localized edema; I73.9 Peripheral vascular disease, unspecified; I25.10 Atherosclerotic heart disease of native coronary artery without angina pectoris; I10 Essential (primary) hypertension; Z86.73 Personal history of transient ischemic attack (TIA), and cerebral infarction without residual deficits; F17.200 Nicotine dependence, unspecified, uncomplicated; F19.10 Other psychoactive substance abuse, uncomplicated; Z89.512 Acquired absence of left leg below knee | CPT/HCPCS: 29580 ==

== ENCOUNTER → 2024-11-22 | Outpatient (CLI) | payer MEDICARE, MEDICAID, SELFPAY | END | disposition home or self-care (01) | LOC: SWHD 13:05 | PROVIDERS: PCP Family Medicine; Referring Provider Family Medicine; Visit Provider Student in an Organized Health Care Education/Training Program | DX: S81.801A Unspecified open wound, right lower leg, initial encounter (principal); X58.XXXA Exposure to other specified factors, initial encounter; L97.811 Non-pressure chronic ulcer of other part of right lower leg limited to breakdown of skin; R60.0 Localized edema; I73.9 Peripheral vascular disease, unspecified; I25.10 Atherosclerotic heart disease of native coronary artery without angina pectoris; I10 Essential (primary) hypertension; Z86.73 Personal history of transient ischemic attack (TIA), and cerebral infarction without residual deficits; F17.200 Nicotine dependence, unspecified, uncomplicated; F19.10 Other psychoactive substance abuse, uncomplicated; Z89.512 Acquired absence of left leg below knee | CPT/HCPCS: 29580; A9270 ==

== ENCOUNTER → 2024-11-29 | Outpatient (CLI) | payer MEDICARE, MEDICAID, SELFPAY | END | disposition home or self-care (01) | LOC: SWHD 13:01 | PROVIDERS: PCP Family Medicine; Referring Provider Family Medicine; Visit Provider Student in an Organized Health Care Education/Training Program | DX: S81.801A Unspecified open wound, right lower leg, initial encounter (principal); X58.XXXA Exposure to other specified factors, initial encounter; L97.811 Non-pressure chronic ulcer of other part of right lower leg limited to breakdown of skin; R60.0 Localized edema; I73.9 Peripheral vascular disease, unspecified; I25.10 Atherosclerotic heart disease of native coronary artery without angina pectoris; I10 Essential (primary) hypertension; Z89.512 Acquired absence of left leg below knee; F19.10 Other psychoactive substance abuse, uncomplicated; F17.200 Nicotine dependence, unspecified, uncomplicated; Z86.73 Personal history of transient ischemic attack (TIA), and cerebral infarction without residual deficits | CPT/HCPCS: 29580; A9270 ==

== ENCOUNTER → 2024-12-06 | Outpatient (CLI) | payer MEDICARE, MEDICAID, SELFPAY | END | disposition home or self-care (01) | LOC: SWHD 13:05 | PROVIDERS: PCP Family Medicine; Referring Provider Family Medicine; Visit Provider Student in an Organized Health Care Education/Training Program | DX: S81.801A Unspecified open wound, right lower leg, initial encounter (principal); X58.XXXA Exposure to other specified factors, initial encounter; L97.811 Non-pressure chronic ulcer of other part of right lower leg limited to breakdown of skin; R60.0 Localized edema; I73.9 Peripheral vascular disease, unspecified; I25.10 Atherosclerotic heart disease of native coronary artery without angina pectoris; I10 Essential (primary) hypertension; Z86.73 Personal history of transient ischemic attack (TIA), and cerebral infarction without residual deficits; F17.200 Nicotine dependence, unspecified, uncomplicated; F19.10 Other psychoactive substance abuse, uncomplicated | CPT/HCPCS: 29581 ==

== ENCOUNTER → 2024-12-27 | Outpatient (CLI) | payer MEDICARE, SELFPAY | END | disposition home or self-care (01) | PROVIDERS: PCP Family Medicine; Referring Provider Family Medicine; Visit Provider Student in an Organized Health Care Education/Training Program | DX: S81.801A Unspecified open wound, right lower leg, initial encounter (principal); X58.XXXA Exposure to other specified factors, initial encounter; L97.811 Non-pressure chronic ulcer of other part of right lower leg limited to breakdown of skin; R60.0 Localized edema; I73.9 Peripheral vascular disease, unspecified; I25.10 Atherosclerotic heart disease of native coronary artery without angina pectoris; I10 Essential (primary) hypertension; Z86.73 Personal history of transient ischemic attack (TIA), and cerebral infarction without residual deficits; F17.200 Nicotine dependence, unspecified, uncomplicated; F19.10 Other psychoactive substance abuse, uncomplicated | CPT/HCPCS: 29580 ==

== ENCOUNTER → 2025-01-05 | Outpatient (CLI) | payer MEDICARE, SELFPAY | END | disposition home or self-care (01) | LOC: SWHD 13:36 | PROVIDERS: PCP Family Medicine; Referring Provider Family Medicine; Visit Provider Student in an Organized Health Care Education/Training Program | DX: S81.801A Unspecified open wound, right lower leg, initial encounter (principal); X58.XXXA Exposure to other specified factors, initial encounter; L97.812 Non-pressure chronic ulcer of other part of right lower leg with fat layer exposed; R60.0 Localized edema; I73.9 Peripheral vascular disease, unspecified; I25.10 Atherosclerotic heart disease of native coronary artery without angina pectoris; I10 Essential (primary) hypertension; Z86.73 Personal history of transient ischemic attack (TIA), and cerebral infarction without residual deficits; F17.200 Nicotine dependence, unspecified, uncomplicated; F19.10 Other psychoactive substance abuse, uncomplicated | CPT/HCPCS: 29580 ==

== ENCOUNTER → 2025-01-17 | Outpatient (CLI) | payer MEDICARE, MEDICAID, SELFPAY | END | disposition home or self-care (01) | PROVIDERS: PCP Family Medicine; Referring Provider Family Medicine; Visit Provider Student in an Organized Health Care Education/Training Program | DX: S81.801A Unspecified open wound, right lower leg, initial encounter (principal); X58.XXXA Exposure to other specified factors, initial encounter; L97.812 Non-pressure chronic ulcer of other part of right lower leg with fat layer exposed; R60.0 Localized edema; I73.9 Peripheral vascular disease, unspecified; I25.10 Atherosclerotic heart disease of native coronary artery without angina pectoris; I10 Essential (primary) hypertension; Z86.73 Personal history of transient ischemic attack (TIA), and cerebral infarction without residual deficits; F17.200 Nicotine dependence, unspecified, uncomplicated; F19.10 Other psychoactive substance abuse, uncomplicated | CPT/HCPCS: 29580; A9270 ==

== ENCOUNTER → 2025-01-24 | Outpatient (CLI) | payer MEDICARE, MEDICAID, SELFPAY | END | disposition home or self-care (01) | PROVIDERS: PCP Family Medicine; Referring Provider Family Medicine; Visit Provider Student in an Organized Health Care Education/Training Program | DX: S81.801A Unspecified open wound, right lower leg, initial encounter (principal); X58.XXXA Exposure to other specified factors, initial encounter; L97.812 Non-pressure chronic ulcer of other part of right lower leg with fat layer exposed; R60.0 Localized edema; I73.9 Peripheral vascular disease, unspecified; I25.10 Atherosclerotic heart disease of native coronary artery without angina pectoris; I10 Essential (primary) hypertension; Z86.73 Personal history of transient ischemic attack (TIA), and cerebral infarction without residual deficits; F17.200 Nicotine dependence, unspecified, uncomplicated; F19.10 Other psychoactive substance abuse, uncomplicated | CPT/HCPCS: 29580; A9270 ==

== ENCOUNTER → 2025-01-31 | Outpatient (CLI) | payer MEDICARE, MEDICAID, SELFPAY | END | disposition home or self-care (01) | LOC: SWHD 14:07 | PROVIDERS: PCP Family Medicine; Referring Provider Family Medicine; Visit Provider Student in an Organized Health Care Education/Training Program | DX: S81.801A Unspecified open wound, right lower leg, initial encounter (principal); X58.XXXA Exposure to other specified factors, initial encounter; L97.812 Non-pressure chronic ulcer of other part of right lower leg with fat layer exposed; R60.0 Localized edema; I73.9 Peripheral vascular disease, unspecified; I25.10 Atherosclerotic heart disease of native coronary artery without angina pectoris; I10 Essential (primary) hypertension; Z86.73 Personal history of transient ischemic attack (TIA), and cerebral infarction without residual deficits; F17.200 Nicotine dependence, unspecified, uncomplicated; F19.10 Other psychoactive substance abuse, uncomplicated | CPT/HCPCS: 29580 ==

== ENCOUNTER → 2025-02-07 | Outpatient (CLI) | payer MEDICARE, MEDICAID, SELFPAY | END | disposition home or self-care (01) | LOC: SWHD 14:11 | PROVIDERS: PCP Family Medicine; Referring Provider Family Medicine; Visit Provider Student in an Organized Health Care Education/Training Program | DX: S81.801A Unspecified open wound, right lower leg, initial encounter (principal); X58.XXXA Exposure to other specified factors, initial encounter; L97.812 Non-pressure chronic ulcer of other part of right lower leg with fat layer exposed; R60.0 Localized edema; I73.9 Peripheral vascular disease, unspecified; I25.10 Atherosclerotic heart disease of native coronary artery without angina pectoris; I10 Essential (primary) hypertension; Z86.73 Personal history of transient ischemic attack (TIA), and cerebral infarction without residual deficits; F17.200 Nicotine dependence, unspecified, uncomplicated; F19.10 Other psychoactive substance abuse, uncomplicated | CPT/HCPCS: 29580; A9270 ==

== ENCOUNTER → 2025-02-14 | Outpatient (CLI) | payer MEDICARE, MEDICAID, SELFPAY | END | disposition home or self-care (01) | LOC: SWHD 12:43 | PROVIDERS: PCP Family Medicine; Referring Provider Family Medicine; Visit Provider Surgery | DX: S81.801A Unspecified open wound, right lower leg, initial encounter (principal); X58.XXXA Exposure to other specified factors, initial encounter; L97.812 Non-pressure chronic ulcer of other part of right lower leg with fat layer exposed; R60.0 Localized edema; I73.9 Peripheral vascular disease, unspecified; I25.10 Atherosclerotic heart disease of native coronary artery without angina pectoris; I10 Essential (primary) hypertension; Z86.73 Personal history of transient ischemic attack (TIA), and cerebral infarction without residual deficits; F17.200 Nicotine dependence, unspecified, uncomplicated; F19.10 Other psychoactive substance abuse, uncomplicated | CPT/HCPCS: 99212; G0463 ==